=== PATIENT | female | born 1990 | race Caucasian/White ===

== ENCOUNTER → 2016-10-09 | Outpatient (CLI) | payer MEDICAID ==
[~2016-10-09] MED LIST: AC325T PO; ALBU17AE23 IH; AMOX500C2 PO; CEPH500C PO; DOCU-143 PO; DOXY100C2 PO; FERR325C PO; FOLI-88 PO; HYDR-3583 PO; HYDR-3720 PO; HYDR-3812 PO; HYDR-757 PO; HYDR12.56 PO; IBP600T1 PO; IBUP-1773 PO; LISI10TA2 PO; NFPRILOC40 PO; OXYC-12 PO; PED18TAB2 PO; PEDI1TAB35 PO; PRD20T PO; PREN1TAB19 PO; SULF-222 PO; TRAM50TA2 PO; morphine INJ 4 MG/ML 1 ML (VIAL/SYRINGE) ONE
--- OUTSIDE RECORDS SUMMARY | 2016-10-09 10:08 | XMS REPORT | Continuity of Care Document ---
Author Author [facility] Organization [facility] Address Unknown Phone Unavailable Care Team Providers Care Brine Purifier Name Role Phone SUZIE ARIZMENDI MD PCP Insurance Providers Payer Name Policy Number Subscriber Name Relationship Albert Kancare Amerigrp [id number] Fartun Peralta 18 Self / Same As Patient Advance Directives Directive Response Recorded Date/Time Advance Directives No 02/24/15 8:45pm Health Care Power of Dental Service Chief No 02/24/15 8:45pm Organ Donor Yes 02/24/15 8:45pm Resuscitation Status Full Code 02/24/15 8:45pm Problems Medical Problems Problem Onset Date Status Urinary tract infectious disease Unknown Active Medications Medication Dose Route Sig Days/Qty Instructions Order Date Discontinued Date Status Doxycycline Hyclate (Vibramycin) 1 Each PO TWICE A DAY 10 Days 08/02/11 Discontinued Albuterol 1 Gm IH EVERY 4HRS PRN 1 Qty 03/01/11 08/02/11 Discontinued Doxycycline Hyclate (Vibramycin) 1 Each PO TWICE A DAY 14 Qty 08/02/11 08/26/12 Discontinued Doxycycline Hyclate (Vibramycin) 1 Each PO TWICE A DAY 7 Days 10/31/11 08/26/12 Discontinued Hydrochlorothiazide 1 Tab PO DAILY 01/16/12 08/26/12 Discontinued Tramadol Hcl 1 Tab PO NEEDED 01/16/12 08/26/12 Discontinued Amoxicillin 1 Each PO THREE TIMES A DAY 7 Days 01/16/12 08/26/12 Discontinued Ped Multivit #43/Iron Fumarate 18 Mg PO DAILY 08/26/12 08/26/13 Discontinued Ferrous Sulfate 325 ( PO DAILY 08/26/12 08/26/13 Discontinued Acetaminophen/Hydrocodone Bitart 1 Ea PO Q6HR PRN 15 Qty 08/26/1208/11 Discontinued Acetaminophen 650 Mg PO NEEDED 10/11/12 08/26/13 Discontinued Ibuprofen 600 Mg PO GIVE EVERY 6 HR ON SCHEDULE PRN 10/27/12 Discontinued Oxycodone Hcl/Acetaminophen 1 - 2 Each PO Q4-6HR PRN 10/27/12 Discontinued Prednisone 20 Mg PO DAILY 20MG-- 2 P.O. DAILY FOR 3 DAYS, THEN 1 DAILY FOR 3 DAYS, THEN OFF. 10/27/12 08/26/13 Discontinued Prednisone 20 Mg PO TWICE A DAY 5 Days 01/18/13 08/26/13 Discontinued Omeprazole 40 Mg PO DAILY 30 Qty 08/26/13 02/14/15 Discontinued Folic Acid/Multivits-Min/Lut 1 Each PO DAILY 30 Qty 08/26/13 02/14/15 Discontinued Acetaminophen/Hydrocodone Bitart 1-2 Ea PO Q4-6HR PRN PAIN 20 Qty 10/0802/14/15 Discontinued Ibuprofen (Motrin) 600 Mg PO EVERY 6 HOURS PRN CRAMPS 30 Qty 10/08/13 02/14/15 Discontinued Cephalexin Monohydrate (Keflex) 1 Each PO FOUR TIMES DAILY 30 Qty 10/1202/14/15 Discontinued Vit/Fe Fumarate/Fa 1 Each PO DAILY 02/14/15 02/24/15 Discontinued Pediatric Multivit Comb. No.49 2 Each PO DAILY 02/24/15 Active Social History Social History Problem Response Recorded Date/Time Alcohol Use Denies Use 10/12/2013 11:55am Recreational Drug Use No 10/12/2013 11:55am Recent Foreign Travel No 10/12/2013 11:55am Recent Infectious Disease Exposure No 10/12/2013 11:55am Hospitalization with Isolation Denies 10/12/2013 11:55am Smoking Status Current Someday Smoker 02/24/2015 8:46pm Do you dip or chew tobacco? No 02/24/2015 8:46pm Query Response Start Date Stop Date Smoking Status Current Someday Smoker Hospital Discharge Instructions No hospital discharge instructions. Plan of Care No plan of care. Functional Status No functional status results. Allergies, Adverse Reactions, Alerts Allergen Type Severity Reaction Status Last Updated No Known Drug Allergies Active 03/01/11 Immunizations Name Given Type Hepatitis A No Historical Hepatitis B No Historical Tetanus Booster (TDap) Less than 5yrs Historical Vital Signs Acute Vital Signs Vital Response Date/Time Temperature (Fahrenheit) 97.3 degrees F (97.6 - 99.5) Temperature (Calculated Celsius) 36.39494 degrees C (36.4 - 37.5) Temperature Source Tympanic Pulse Rate (adult) 96 bpm (60 - 90) Respiratory Rate 18 bpm (12 - 24) Blood Pressure 132/70 mm Hg Pain Pain Intensity 5 Height (Feet) 5 feet Height (Inches) 9.00 inches Height (Calculated Centimeters) 175.270187 cm Weight (Pounds) 203 pounds Weight (Calculated Grams) 42170.252 gm Weight (Calculated Kilograms) 92.216789 kilograms Calculated BMI 29.97 Results Laboratory Results Test Name Result Units Flags Reference Collection Date/Time Result Date/ Time Comments White Blood Count 14.9 10^3/uL H 4.3-11.0 02/14/2015 7:30am 02/14/2015 7: 46am Red Blood Count 4.16 10^6/uL L 4.35-5.85 02/14/2015 7:3002/14/2015 7: 46am Hemoglobin 11.1 G/DL L 11.5-16.0 02/14/2015 7:3002/14/2015 7:46am Hematocrit 34 % L 35-52 02/14/2015 7:30am 02/14/2015 7:46am Mean Corpuscular Volume 83 FL 80-99 02/14/2015 7:3002/14/2015 7: 46am Mean Corpuscular Hemoglobin 27 PG 25-34 02/14/2015 7:3002/14/2015 7: 46am Mean Corpuscular Hemoglobin Concent 32 G/DL 32-36 02/14/2015 7:30 7:46am Red Cell Distribution Width 13.6 % 10.0-14.5 02/14/2015 7:30am 2014 7:46am Platelet Count 262 10^3/uL 130-400 02/14/2015 7:30am 02/14/2015 7:46am Mean Platelet Volume 10.6 FL H 7.4-10.4 02/14/2015 7:30am 02/14/2015 7: 46am Urine Color YELLOW 02/14/2015 6:30am 02/14/2015 7:00am Urine Clarity SLIGHTLY CLOUDY 02/14/2015 6:30am 02/14/2015 7:00am Urine pH 7 5-9 02/14/2015 6:30am 02/14/2015 7:00am Urine Specific [place] 1.015 * 1.016-1.022 02/14/2015 6:30am 2014 7:00am Urine Protein NEGATIVE NEGATIVE 02/14/2015 6:30am 02/14/2015 7:00am Urine Glucose (UA) NEGATIVE NEGATIVE 02/14/2015 6:30am 02/14/2015 7: 00am Urine RBC (Auto) NEGATIVE NEGATIVE 02/14/2015 6:30am 02/14/2015 7: 00am Urine Ketones NEGATIVE NEGATIVE 02/14/2015 6:30am 02/14/2015 7:00am Urine Nitrite NEGATIVE NEGATIVE 02/14/2015 6:30am 02/14/2015 7:00am Urine Bilirubin NEGATIVE NEGATIVE 02/14/2015 6:30am 02/14/2015 7: 00am Urine Urobilinogen NORMAL MG/DL NORMAL 02/14/2015 6:30am 02/14/2015 7: 00am Urine Leukocyte Esterase 1+ * NEGATIVE 02/14/2015 6:30am 02/14/2015 7: 00am Urine RBC NONE /HPF 02/14/2015 6:30am 02/14/2015 7:00am Urine WBC 5-10 /HPF * 02/14/2015 6:30am 02/14/2015 7:00am Urine Bacteria FEW /HPF * 02/14/2015 6:30am 02/14/2015 7:00am Urine Squamous Epithelial Cells 10-25 /HPF * 02/14/2015 6:30am 2014 7:00am Urine Crystals PRESENT /LPF * 02/14/2015 6:30am 02/14/2015 7:00am Urine Amorphous Sediment MOD LINUS URATES /LPF * 02/14/2015 6:30am 02/14 7:00am Urine Casts NONE /LPF 02/14/2015 6:30am 02/14/2015 7:00am Urine Mucus SMALL /LPF * 02/14/2015 6:30am 02/14/2015 7:00am Urine Culture Indicated YES 02/14/2015 6:30am 02/14/2015 7:00am Urine Color YELLOW 02/24/2015 8:30pm 02/24/2015 9:01pm Urine Clarity CLEAR 02/24/2015 8:30pm 02/24/2015 9:01pm Urine pH 7 5-9 02/24/2015 8:30pm 02/24/2015 9:01pm Urine Specific [place] 1.010 * 1.016-1.022 02/24/2015 8:30pm 2014 9:01pm Urine Protein NEGATIVE NEGATIVE 02/24/2015 8:30pm 02/24/2015 9:01pm Urine Glucose (UA) NEGATIVE NEGATIVE 02/24/2015 8:30pm 02/24/2015 9: 01pm Urine RBC (Auto) NEGATIVE NEGATIVE 02/24/2015 8:30pm 02/24/2015 9: 01pm Urine Ketones NEGATIVE NEGATIVE 02/24/2015 8:30pm 02/24/2015 9:01pm Urine Nitrite NEGATIVE NEGATIVE 02/24/2015 8:30pm 02/24/2015 9:01pm Urine Bilirubin NEGATIVE NEGATIVE 02/24/2015 8:30pm 02/24/2015 9: 01pm Urine Urobilinogen NORMAL MG/DL NORMAL 02/24/2015 8:30pm 02/24/2015 9: 01pm Urine Leukocyte Esterase 1+ * NEGATIVE 02/24/2015 8:30pm 02/24/2015 9: 01pm Urine RBC NONE /HPF 02/24/2015 8:30pm 02/24/2015 9:01pm Urine WBC 10-25 /HPF * 02/24/2015 8:30pm 02/24/2015 9:01pm Urine Bacteria FEW /HPF * 02/24/2015 8:30pm 02/24/2015 9:01pm Urine Squamous Epithelial Cells 25-50 /HPF * 02/24/2015 8:30pm 2014 9:01pm Urine Crystals NONE /LPF 02/24/2015 8:30pm 02/24/2015 9:01pm Urine Casts NONE /LPF 02/24/2015 8:30pm 02/24/2015 9:01pm Urine Mucus NEGATIVE /LPF 02/24/2015 8:30pm 02/24/2015 9:01pm Urine Culture Indicated YES 02/24/2015 8:30pm 02/24/2015 9:01pm Procedures No known history of procedures. Encounters Encounter Location Date/Time Departed Clinic Via [facility] 02/24/15 8:27pm Departed Clinic Via [facility] 02/14/15 6:31am
--- NOTE | 2016-10-09 17:00 | Diagnostic Imaging Report ---
Transabdominal and transvaginal pelvic ultrasound. INDICATION: Left pelvic pain. FINDINGS: The uterus is 8.3 x 4.4 x 5.1 cm. The endometrial stripe is 2 cm in thickness. No myometrial lesion is identified. The right ovary is 3.9 x 3.1 x 2 cm. There is a 2 cm hypoechoic lesion within the right ovary probably a hemorrhagic follicle. Arterial waveforms over the right ovary seen. The left ovary is obscured by bowel gas. IMPRESSION: 1. The left ovary is obscured. Correlate clinically and with MRI of the pelvis if needed. 2. Slight thickening of the endometrial stripe with no focal lesion identified. This may be physiologic. Follow-up study in 2-3 months is recommended to ensure no adverse development. Dictated by: Dictated on workstation # [id number]
== END ==
LOC: RAD 10:04
PROVIDERS: ATTEND Family Medicine
DX: R10.2 Pelvic and perineal pain (principal)
CPT/HCPCS: 76830; 76856

== ENCOUNTER 2016-11-16 10:15 | Outpatient (CLI) | payer MEDICAID ==
[~2016-11-16] VITALS: Ht 175.3 cm; Wt 82.3 kg
[~2016-11-16 10:15] MED LIST changes: -DOCU-143 PO; -HYDR-757 PO; -LISI10TA2 PO; -morphine INJ 4 MG/ML 1 ML (VIAL/SYRINGE) ONE
--- OUTSIDE RECORDS SUMMARY | 2016-11-16 10:19 | XMS REPORT | Continuity of Care Document ---
Author Author [facility] Organization [facility] Address Unknown Phone Unavailable Care Team Providers Care Manager Patient Name Role Phone SUZIE ARIZMENDI MD PCP Insurance Providers Payer Name Policy Number Subscriber Name Relationship Albert Kanc[employer] Amerigrp [id number] Fartun Peralta 18 Self / Same As Patient Advance Directives Directive Response Recorded Date/Time Advance Directives No 02/24/15 8:45pm Health Care Power of Explosive Expert No 02/24/15 8:45pm Organ Donor Yes 02/24/15 [...] F (97.6 - 99.5) Temperature (Calculated Celsius) 36.58281 degrees C (36.4 - 37.5) Temperature Source Tympanic Pulse Rate (adult) 96 bpm (60 - 90) Respiratory Rate 18 bpm (12 - 24) Blood Pressure 132/70 mm Hg Pain Pain Intensity 5 Height (Feet) 5 feet Height (Inches) 9.00 inches Height (Calculated Centimeters) 175.124090 cm Weight (Pounds) 203 pounds Weight (Calculated Grams) 61029.252 gm Weight (Calculated Kilograms) 92.447827 kilograms Calculated BMI 29.97 Results Laboratory Results [...] 5-9 02/14/2015 6:30am 02/14/2015 7:00am Urine Specific [place] 1.015 * 1.016-1.022 02/14/2015 6:30am 2014 7:00am [...] 5-9 02/24/2015 8:30pm 02/24/2015 9:01pm Urine Specific [place] 1.010 * 1.016-1.022 02/24/2015 8:30pm 2014 9:01pm [...] Encounters Encounter Location Date/Time Departed Clinic Via [facility] 02/24/15 8:27pm Departed Clinic Via [facility] 02/14/15 6:31am
[2016-11-16] MEDS ORDERED: LISI10TA2 PO (10:26)
[2016-11-16 10:30] VITALS: BP 132/94
[2016-11-16 10:59] LABS: BASOPHILS % (AUTO) 0 % (0-10); EOSINOPHILS # (AUTO) 0.1 10^3/uL (0.0-0.3); EOSINOPHILS % (AUTO) 2 % (0-10); LYMPHOCYTES # (AUTO) 2.1 X 10^3 (1.0-4.0); LYMPHOCYTES % (AUTO) 30 % (12-44); MEAN CORPUSCULAR HEMOGLOBIN 26 PG (25-34); MEAN CORPUSCULAR HGB CONC 33 G/DL (32-36); MEAN CORPUSCULAR VOLUME 80 FL (80-99); MEAN PLATELET VOLUME 10.8 FL (7.4-10.4); MONOCYTES # (AUTO) 0.4 X 10^3 (0.0-1.0); MONOCYTES % (AUTO) 6 % (0-12); NEUTROPHILS # (AUTO) 4.3 X 10^3 (1.8-7.8); NEUTROPHILS % (AUTO) 62 % (42-75); PLATELET COUNT 350 10^3/uL (130-400); RED BLOOD COUNT 5.25 10^6/uL (4.35-5.85); RED CELL DISTRIBUTION WIDTH 14.5 % (10.0-14.5); WHITE BLOOD COUNT 6.9 10^3/uL (4.3-11.0)
[2016-11-19] MEDS ORDERED: HYDR-757 PO (09:22)
[2016-11-19] MEDS ORDERED: IBUP-1773 PO (09:22)
== END 2016-11-16 13:05 ==
LOC: PREOP 10:15
PROVIDERS: ATTEND Obstetrics & Gynecology
DX: Z01.812 Encounter for preprocedural laboratory examination (principal); Z11.2 Encounter for screening for other bacterial diseases; R10.2 Pelvic and perineal pain
CPT/HCPCS: 36415; 85025; 86850; 86900; 86901; 87081

== ENCOUNTER 2016-11-19 08:07 | Day surgery (SDC) | payer MEDICAID ==
[~2016-11-19] VITALS: Ht 175.3 cm; Wt 82.3 kg
[~2016-11-19 08:07] MED LIST changes: +LISI10TA2 PO
[2016-11-19 08:25] VITALS: BP 118/88
[2016-11-19] MEDS: LACTATED RINGERS 1,000 ML IV PRN ×2 (08:30→10:30)
--- NOTE | 2016-11-19 09:15 | Progress Note-Pre Operative ---
Pre-Operative Progress Note H&P Reviewed The H&P was reviewed, patient examined and no changes noted. Date H&P Reviewed: Nov 19, 2016 Time H&P Reviewed: 09:00 Pre-Operative Diagnosis: LLQ pain SAMANTHA MOORE DO Nov 19, 2016 9:15 am
[2016-11-19] MEDS ORDERED: DEXAMETHASONE PF 10 MG/ML (DECADRON) VIAL ONE (09:18)
[2016-11-19] MEDS ORDERED: proPOfol 200 MG/20 ML (DIPRIVAN) VIAL IV ONE (09:18)
[2016-11-19] MEDS ORDERED: fentaNYL INJECTION 100 MCG/2 ML AMP ONE ×2 (09:18→10:34)
[2016-11-19] MEDS ORDERED: ONDANSETRON 4 MG/2 ML (SDV) Z0FRAN ONE (09:18)
[2016-11-19] MEDS ORDERED: ROCURONIUM 50 MG/5 ML (ZEMURON) VIAL IV ONE (09:18)
[2016-11-19] MEDS ORDERED: BUPIVACAINE 0.25% 30 ML (SENSORCAINE) VIAL ONE (09:19)
[2016-11-19] MEDS ORDERED: MIDAZOLAM 2 MG/2 ML (VERSED) VIAL ONE (09:19)
[2016-11-19] MEDS ORDERED: HYDR-757 PO (09:22)
[2016-11-19] MEDS ORDERED: IBUP-1773 PO (09:22)
--- NOTE | 2016-11-19 09:23 | Discharge Inst-Women's Service ---
Discharge Inst-Women's Serv Depart Medication/Instructions New, Converted or Re-Newed RX: RX on Chart Activity Activity: Activity as Tolerated (do not drive while taking narcotic pain meds) Driving Instructions: You May Drive NO SMOKING: NO SMOKING Nothing Inside Vagina: No Douching, No [place], No Tampons Diet Discharge Diet: No Restrictions Symptoms to Report to : Bleeding Excessive, Pain Increased, Fever Over 101 Degrees F, Vaginal Bleeding Increase, Questions/Concerns For Any Problems or Questions: Contact Your Physician Skin/Wound Care Infection Signs and Symptoms: Increased Redness, Foul Odor of Wound, Increased Drainage, Skin Itchy or Has a Rash, Increased Swelling, Temperature Above 101 F Operative Area Clean and Dry: Keep Incision Clean/Dry Stitches/[place]/Dermabond: Dermabond, Care of Stitches Bathing Instructions: SAMANTHA Zuleta DO Nov 19, 2016 9:23 am
[2016-11-19] MEDS ORDERED: KETOROLAC 30 MG/ML VIAL ONE (09:53)
[2016-11-19] MEDS ORDERED: SEVOFLURANE (ULTANE) 15 ML INHAL SOLN ONE ×4 (09:53→10:29)
[2016-11-19] MEDS ORDERED: LACTATED RINGERS 2,000 ML IV ONE (09:53)
[2016-11-19] MEDS ORDERED: morphine INJ 10 MG/ML 1ML (SYR OR VIAL) ONE (11:06)
[2016-11-19 11:40] VITALS: BP 115/74
[2016-11-19 12:10] VITALS: BP 126/80
[2016-11-19 12:30] VITALS: BP 124/78
--- NOTE | 2016-11-19 13:43 | OPERATIVE REPORT ---
PROCEDURE PHYSICIAN: SAMANTHA KUHN DATE OF PROCEDURE: 11/19/2016 PREOPERATIVE DIAGNOSIS: 1. 26-year-old female with chronic pelvic pain. 2. Left lower quadrant abdominal pain. POSTOPERATIVE DIAGNOSES: 1. 26-year-old female with chronic pelvic pain. 2. Left lower quadrant abdominal pain. 3. Left ovarian cyst. 4. 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 of the posterior cul-de-sac along the margin of the left uterosacral ligament. PROCEDURE: Laparoscopic bilateral salpingectomy, left ovarian cystotomy and ablation of endometriosis. SURGEON: Dr. Samantha Kuhn TITLE SEARCHER: Jenelle Hopkins APRN, who is necessary for retraction of vital organs and structures ANESTHESIA: General endotracheal. ESTIMATED BLOOD LOSS: Minimal. URINE OUTPUT: 50 mL clear at the end of the procedure. FLUIDS: 1100 mL of lactated Ringer's solution. FINDINGS: Findings is a slightly hyperemic and enlarged uterus with grossly normal bilateral fallopian tubes with evidence of previous tubal ligation and Filshie clips in place. A 3 to 4 cm left ovarian simple appearing cyst. Filled with clear yellow-tinged fluid and endometriosis in a dark powder burn fashion on the left uterosacral ligament proceeding to the posterior cul-de-sac. SPECIMEN SENT: Bilateral fallopian tubes. INDICATIONS FOR THE PROCEDURE: This 26-year-old female was a consultation to me from Dr. Schroeder for ongoing issues with pelvic pain that had been worsening in the left lower quadrant the last 2 to 3 months to the point where they have tried more conservative measures of trying to deal with the pain without any improvement in her pain. She underwent ultrasound, which did not reveal any abnormality however; the ultrasound was unable to visualize the left ovary. I discussed with the patient more conservative options and the possibility of this being endometriosis and suppression needed to be done with medication NSAIDs. After everything was discussed with the patient, she described either trying them in the past or not willing to move forward with that treatment options as she wishes to find out what is causing her pain. I discussed with the patient diagnostic laparoscopy. Risks of the procedure was discussed with the patient in detail including risk of bleeding, infection, damaging any of the surrounding structures, including but not limited to the bowel, bladder, ureter, kidneys, postoperative hematoma formation, postoperative stroke or DVT, risk from anesthesia, and even . After all of her questions were answered pertaining to procedure as well as recovery time and expectations preoperatively consent was obtained in the preoperative area after the procedure was reviewed with her sister present and the patient was then taken the operating room. OPERATIVE REPORT IN DETAIL: Once in the operating room, general anesthesia was found to be adequate. She was placed in the dorsal lithotomy position, prepped and draped in normal sterile fashion by nursing. A timeout is performed. I first place a Patel catheter using sterile technique and then proceed with performing a bimanual examination. The uterus is not enlarged, freely mobile. There is no adnexal fullness or masses appreciated on bimanual examination. However, this is somewhat limited by the patient's body habitus. I placed a weighted speculum into the patient's vagina. A right angle retractor is used to visualize the cervix. It is grasped at 12 o'clock position using long Allis clamp. I then gently sound the uterine cavity depth which was found to be 8 cm. I then placed a Hydrophi uterine manipulator to a depth of 8 cm and deploy the balloon and use this as my manipulation on the uterus. I then performed a change of gloves after removing the weighted speculum and the Allis clamp and take my attention to the abdomen where infraumbilically I infiltrate this area using 0.25% Marcaine and make a 5 mm incision and direct a Veress needle through this incision until intraperitoneal placement is confirmed using a saline drop test. I proceed with insufflation using CO2 gas. Opening pressure of 4 mmHg is noted. I proceed to maximum pressure of 15 mmHg at which point I remove the Veress needle, introduce a 5 mm blunt trocar through this incision. Intraperitoneal placement is confirmed using a laparoscope. I then have the patient placed in steep Trendelenburg and I am able to visualize all the pelvic anatomy as described in my findings above. I decide I will need to do some dissection and need a second trocar site so I place a suprapubic 5 mm infiltrating the skin using 0.25% Marcaine making a 5 mm incision and directing the 5 mm trocar through this incision until it is visualized in the peritoneal cavity at which point I proceed with removing the fallopian tubes first, my reasoning being that Filshie clip placement can result in post-tubal pain syndrome and the patient was having ongoing issues with pain without any evident source. I start at the isthmic portion of the fallopian tube just proximal to the Filshie clips using a LigaSure 5 mm bipolar cautery I bipolar cauterize the tube and transect it using the LigaSure. I take this dissection down the mesosalpinx the tube away from its vascular supply. I do this in a similar fashion on the right side. Once both of these tubes are collected they are placed in the posterior cul-de-sac for further removal later in the procedure. I then use a monopolar Endo Shear to open up the left ovarian cyst and cauterize the margins of the cyst opening but this is to decompress the cyst and hopefully improve patient's perception of pain in the left lower quadrant. Finally upon carefully inspecting the peritoneum and serosa of the uterus and the pelvic structures, I identify powder burn turpin evidence of endometriosis in the posterior cul-de-sac along the left uterosacral ligament. Due to this being possibly causing her pain I ablate this using monopolar cautery at which point I then copiously irrigate the pelvis using normal saline. There is no active bleeding noted from any my dissection planes. I then remove the fallopian tubes through my 5 mm incision using a 5 mm Endopouch. Once they are removed I release insufflation through my trocar sites and introduce a 10 mL of 0.25% Marcaine down into the peritoneal cavity and then remove the trocars. Once the trocars are removed I close the skin using Dermabond. Band-Aids are placed over this. The patient tolerated the procedure well and was taken to the recovery area in stable condition after the Akros Siliconer uterine manipulator and Patel catheter is removed. Job ID: [id number] Dictated Date: 11/19/2016 11:08:56 Psychology Teacher Date: 11/19/2016 13:22:49 / [email or web address]
--- OUTSIDE RECORDS SUMMARY | 2016-11-22 08:30 | XMS REPORT | Continuity of Care Document ---
Author Author [facility] Address Unknown Phone Unavailable Allergies Active Description Code Type Severity Reaction Onset Reported/Identified Relationship to Patient Clinical Status Yes No Known Drug Allergies [id number] Drug Allergy Unknown N/ A 11/16/2016 Medications Problems Date Dx Coded Attending Type Code Diagnosis Diagnosed By 12/24/2009 RADHA LYNN APRN 278.02 OVERWEIGHT 12/24/2009 RADHA LYNN APRN 401.1 HYPERTENSION, BENIGN ESSENTIAL 12/24/2009 ADÁN MURRY DO K 278.02 OVERWEIGHT 12/24/2009 ADÁN MURRY DO 401.1 HYPERTENSION, BENIGN ESSENTIAL 12/24/2009 ERICA DIANE APRN 278.02 OVERWEIGHT 12/24/2009 ERICA DIANE APRN 401.1 HYPERTENSION, BENIGN ESSENTIAL 01/30/2010 RADHA LYNN APRN 784.0 HEADACHE 01/30/2010 ADÁN MURRY DO K 784.0 HEADACHE 01/30/2010 ERICA DIANE APRN 784.0 HEADACHE 03/03/2010 RADHA LYNN APRN 251.1 HYPERINSULINISM 03/03/2010 RADHA LYNN APRN 626.4 IRREGULAR MENSTRUAL CYCLE 03/03/2010 ADÁN MURRY DO K 251.1 HYPERINSULINISM 03/03/2010 ADÁN MURRY DO K 626.4 IRREGULAR MENSTRUAL CYCLE 03/03/2010 ERICA DIANE APRN E 251.1 HYPERINSULINISM 03/03/2010 ERICA DIANE APRN E 626.4 IRREGULAR MENSTRUAL CYCLE 07/14/2010 RADHA LYNN APRN 079.99 UNSPECIFIED VIRAL INFECTION 07/14/2010 RADHA LYNN APRN 460 ACUTE NASOPHARYNGITIS (COMMON COLD) 07/14/2010 ADÁN MURRY DO 079.99 UNSPECIFIED VIRAL INFECTION 07/14/2010 ADÁN MURRY DO 460 ACUTE NASOPHARYNGITIS (COMMON COLD) 07/14/2010 ERICA DIANE APRN 079.99 UNSPECIFIED VIRAL INFECTION 07/14/2010 ERICA DIANE APRN 460 ACUTE NASOPHARYNGITIS (COMMON COLD) 12/11/2010 RADHA LYNN APRN 462 ACUTE PHARYNGITIS 12/11/2010 RADHA LYNN APRN 463 TONSILLITIS ACUTE 12/11/2010 ADÁN MURRY DO K 462 ACUTE PHARYNGITIS 12/11/2010 ADÁN MURRY DO K 463 TONSILLITIS ACUTE 12/11/2010 ERICA DIANE APRN 462 ACUTE PHARYNGITIS 12/11/2010 ERICA DIANE APRN 463 TONSILLITIS ACUTE 03/01/2011 Ot 466.0 ACUTE BRONCHITIS 03/01/2011 Ot 786.2 COUGH 05/15/2011 RADHA LYNN APRN 465.9 ACUTE UPPER RESPIRATORY INFECTIONS OF UNSPECIFIED SITE 05/15/2011 ADÁN MURRY DO 465.9 ACUTE UPPER RESPIRATORY INFECTIONS OF UNSPECIFIED SITE 05/15/2011 ERICA DIANE APRN 465.9 ACUTE UPPER RESPIRATORY INFECTIONS OF UNSPECIFIED SITE 08/02/2011 Ot 305.1 TOBACCO USE DISORDER 08/02/2011 Ot 466.0 ACUTE BRONCHITIS 08/02/2011 Ot 786.2 COUGH 10/31/2011 Ot 466.0 ACUTE BRONCHITIS 10/31/2011 Ot 780.60 FEVER, UNSPECIFIED 12/21/2011 RADHA LYNN APRN 333.94 RESTLESS LEGS SYNDROME (RLS) 12/21/2011 ADÁN MURRY DO 333.94 RESTLESS LEGS SYNDROME (RLS) 12/21/2011 ERICA DIANE APRN 333.94 RESTLESS LEGS SYNDROME (RLS) 01/15/2012 RADHA LYNN APRN 008.8 GASTROENTERITIS, VIRAL 01/15/2012 ADÁN MURRY DO 008.8 GASTROENTERITIS, VIRAL 01/15/2012 ERICA DIANE APRN 008.8 GASTROENTERITIS, VIRAL 01/16/2012 Ot 462 ACUTE PHARYNGITIS 01/16/2012 Ot 787.03 VOMITING ALONE 01/22/2012 RADHA LYNN APRN 787.01 NAUSEA WITH VOMITING 01/22/2012 ADÁN MURRY DO 787.01 NAUSEA WITH VOMITING 01/22/2012 ERICA DIANE APRN 787.01 NAUSEA WITH VOMITING 01/29/2012 RADHA LYNN APRN 789.01 ABDOMINAL PAIN RIGHT UPPER QUADRANT 01/29/2012 ADÁN MURRY DO 789.01 ABDOMINAL PAIN RIGHT UPPER QUADRANT 01/29/2012 ERICA DIANE APRN 789.01 ABDOMINAL PAIN RIGHT UPPER QUADRANT 02/25/2012 RADHA LYNN APRN V72.42 TEST POSITIVE RESULT 02/25/2012 ADÁN MURRY DO V72.42 TEST POSITIVE RESULT 02/25/2012 ERICA DIANE APRN V72.42 TEST POSITIVE RESULT 08/26/2012 Ot 648.73 BONE DISORDER-ANTEPARTUM 08/26/2012 Ot 724.2 LUMBAGO 10/11/2012 Ot 644.03 THRT ADITHYA LABOR-ANTEPART 10/27/2012 Ot 493.90 ASTHMA, UNSPECIFIED 10/27/2012 Ot 648.92 OTH CURR COND-DEL W P/P 10/27/2012 Ot 649.01 TOBACCO USE DISORDER COMP PREG/CHILDBIRT 10/27/2012 Ot 663.31 CORD ENTANGLE NEC-DELIV 10/27/2012 Ot V06.1 [id number], COMBINED [ 10/27/2012 Ot V06.4 [id number] 10/27/2012 Ot V27.0 DELIVER-SINGLE LIVEBORN 01/18/2013 TERRANCE CURRY, ESE Greene Ot 466.0 ACUTE BRONCHITIS 01/18/2013 TERRANCE CURRY, ESE Greene Ot 786.2 COUGH 03/06/2013 RADHA LYNN APRN 685.1 PILONIDAL CYST WITHOUT ABSCESS 03/06/2013 ADÁN MURRY DO 685.1 PILONIDAL CYST WITHOUT ABSCESS 03/06/2013 ERICA DIANE APRN 685.1 PILONIDAL CYST WITHOUT ABSCESS 08/26/2013 KYLEIGH CURRY, SUZIE Messina Ot 646.83 PREG COMPL NEC-ANTEPART 08/26/2013 KYLEIGH CURRY, SUZIE Messina Ot 789.00 ABDOMINAL PAIN, UNSPECIFIED SITE 09/16/2013 SUZIE ARIZMENDI MD Ot 644.03 THRT ADITHYA LABOR-ANTEPART 10/08/2013 KYLEIGH CURRY, SUZIE Messina Ot 650 NORMAL DELIVERY 10/08/2013 SUZIE ARIZMENDI MD Ot V03.82 PROPHYLACTIC VACC AGAINST STREPTOCOCCUS 10/08/2013 SUZIE ARIZMENDI MD Ot V27.0 DELIVER-SINGLE LIVEBORN 10/12/2013 JERROD RUBI MD Ot 599.0 URIN TRACT INFECTION NOS 10/12/2013 JERROD RUBI MD Ot 646.64 INFECTION- 10/12/2013 JERROD RUBI MD Ot 789.04 ABDOMINAL PAIN, LEFT LOWER QUADRANT 07/04/2014 ADÁN MURRY DO 719.46 PAIN IN JOINT INVOLVING LOWER LEG 07/04/2014 ADÁN MURRY DO E888.8 OTHER ACCIDENTAL FALL 07/04/2014 ERICA DIANE APRN 719.46 PAIN IN JOINT INVOLVING LOWER LEG 07/04/2014 ERICA DIANE APRN E888.8 OTHER ACCIDENTAL FALL 09/28/2014 Ot 787.01 09/28/2014 Ot 789.00 09/28/2014 Ot 649.63 09/28/2014 Ot 649.63 09/28/2014 SUZIE ARIZMENDI MD Ot 649.63 09/28/2014 SUZIE ARIZMENDI MD Ot 649.63 09/28/2014 SUZIE ARIZMENDI MD Ot V28.81 09/28/2014 Ot 787.01 09/28/2014 Ot 789.00 09/28/2014 Ot 649.63 09/28/2014 Ot 649.63 09/28/2014 SUZIE ARIZMENDI MD Ot 649.63 09/28/2014 SUZIE ARIZMENDI MD Ot 649.63 09/28/2014 SUZIE ARIZMENDI MD Ot V28.81 10/01/2014 SUZIE ARIZMENDI MD Ot V22.1 10/10/2014 SUZIE ARIZMENDI MD Ot V22.1 02/14/2015 SUZIE ARIZMENDI MD Ot 558.9 NONINF GASTROENTERIT NEC 02/14/2015 SUZIE ARIZMENDI MD Ot 646.83 PREG COMPL NEC-ANTEPART 02/19/2015 SUZIE ARIZMENDI MD Ot V28.89 02/24/2015 SUZIE ARIZMENDI MD Ot 648.93 OTH CURR COND-ANTEPARTUM 02/24/2015 KYLEIGH CURRY, SUZIE Messina Ot 789.00 ABDOMINAL PAIN, UNSPECIFIED SITE 04/17/2015 KYLEIGH CURRY, SUZIE Messina Ot 599.0 URIN TRACT INFECTION NOS 04/17/2015 SUZIE ARIZMENDI MD Ot 646.63 INFECTION-ANTEPARTUM 2015 SUZIE ARIZMENDI MD Ot 642.33 TRANS HYPERTEN-ANTEPART 05/01/2015 Ot 787.01 05/01/2015 Ot 789.00 05/01/2015 Ot 649.63 05/01/2015 Ot 649.63 05/01/2015 SUZIE ARIZMENDI MD Ot 649.63 05/01/2015 SUZIE ARIZMENDI MD Ot 649.63 05/01/2015 SUZIE ARIZMENDI MD, Ot V28.81 05/01/2015 SUZIE ARIZMENDI MD, Ot V22.1 05/01/2015 SUZIE ARIZMENDI MD, Ot V28.89 05/02/2015 SUZIE ARIZMENDI MD Ot 642.31 TRANS HYPERTEN-DELIVERED 05/02/2015 SUZIE ARIZMENDI MD Ot V06.1 [id number], COMBINED [ 05/02/2015 SUZIE ARIZMENDI MD Ot V27.0 DELIVER-SINGLE LIVEBORN 06/12/2016 Ot 787.01 NAUSEA WITH VOMITING 06/12/2016 Ot 789.00 ABDOMINAL PAIN, UNSPECIFIED SITE 06/12/2016 Ot 649.63 UTERINE SIZE DATE DISCREPANCY, ANTEPARTU 06/12/2016 Ot 649.63 UTERINE SIZE DATE DISCREPANCY, ANTEPARTU 06/12/2016 SUZIE ARIZMENDI MD, Ot 649.63 UTERINE SIZE DATE DISCREPANCY, ANTEPARTU 06/12/2016 SUZIE ARIZMENDI MD, Ot 649.63 UTERINE SIZE DATE DISCREPANCY, ANTEPARTU 06/12/2016 SUZIE ARIZMENDI MD, Ot V28.81 ENCOUNTER FOR ANATOMIC SURVEY 06/12/2016 SUZIE ARIZMENDI MD, Ot V22.1 SUPERVIS OT NORMAL PREG 06/12/2016 SUZIE ARIZMENDI MD, Ot V28.89 OTHER SPECIFIED SCREENING 06/13/2016 KAKELELAND CHANG MD Ot F17.210 NICOTINE DEPENDENCE, CIGARETTES, UNCOMPL 06/13/2016 LELAND TOWNSEND MD Ot L03.116 CELLULITIS OF LEFT LOWER LIMB 06/13/2016 LELAND TOWNSEND MD Ot R22.42 LOCALIZED SWELLING, MASS AND LUMP, LEFT 06/15/2016 LELAND TOWNSEND MD Ot F17.210 NICOTINE DEPENDENCE, CIGARETTES, UNCOMPL 06/15/2016 LELAND TOWNSEND MD Ot L03.116 CELLULITIS OF LEFT LOWER LIMB 06/15/2016 LELAND TOWNSEND MD, Ot R22.42 LOCALIZED SWELLING, MASS AND LUMP, LEFT 10/09/2016 Ot 787.01 NAUSEA WITH VOMITING 10/09/2016 Ot 789.00 ABDOMINAL PAIN, UNSPECIFIED SITE 10/09/2016 Ot 649.63 UTERINE SIZE DATE DISCREPANCY, ANTEPARTU 10/09/2016 Ot 649.63 UTERINE SIZE DATE DISCREPANCY, ANTEPARTU 10/09/2016 SUZIE ARIZMENDI MD Ot 649.63 UTERINE SIZE DATE DISCREPANCY, ANTEPARTU 10/09/2016 SUZIE ARIZMENDI MD Ot 649.63 UTERINE SIZE DATE DISCREPANCY, ANTEPARTU 10/09/2016 SUZIE ARIZMENDI MD Ot V28.81 ENCOUNTER FOR ANATOMIC SURVEY 10/09/2016 SUZIE ARIZMENDI MD Ot V22.1 [facility] OT NORMAL PREG 10/09/2016 SUZIE ARIZMENDI MD Ot V28.89 OTHER SPECIFIED SCREENING 10/13/2016 SUZIE ARIZMENDI MD Ot R10.2 PELVIC AND PERINEAL PAIN 10/21/2016 SUZIE ARIZMENDI MD, Ot R10.2 PELVIC AND PERINEAL PAIN 11/17/2016 SAMANTHA MOORE DO Ot R10.2 PELVIC AND PERINEAL PAIN 11/17/2016 SAMANTHA MOORE DO Ot Z01.812 ENCOUNTER FOR PREPROCEDURAL LABORATORY E 11/17/2016 SAMANTHA MOORE DO Ot Z11.2 ENCOUNTER FOR SCREENING FOR OTHER BACTER Procedures Code Description Performed By Performed On 96.49 OTHER INSTILLATION 10/24/2012 73.6 EPISIOTOMY 2012 96.49 OTHER INSTILLATION 10/05/2013 73.6 EPISIOTOMY 2013 61842 XRAY KNEE LEFT 3 VIEWS 07/04/2014 96.49 OTHER INSTILLATION 04/29/2015 73.6 EPISIOTOMY 2014 Results Test Result Range Methicillin resistant Staphylococcus aureus (MRSA) screening culture - 10:30 Methicillin resistant Staphylococcus aureus (MRSA) screening culture NEG NRG Complete blood count (CBC) with automated white blood cell (WBC) differential - 11/16/16 10:35 Blood leukocytes automated count (number/volume) 6.9 10*3/ uL 4.3-11.0 Blood erythrocytes automated count (number/volume) 5.25 10*6 /uL 4.35-5.85 Venous blood hemoglobin measurement (mass/volume) 13.7 g/dL 11.5-16.0 Blood hematocrit (volume fraction) 42 % 35-52 Automated erythrocyte mean corpuscular volume 80 [foz_us] 80-99 Automated erythrocyte mean corpuscular hemoglobin (mass per erythrocyte) 26 pg 25-34 Automated erythrocyte mean corpuscular hemoglobin concentration measurement ( mass/volume) 33 g/dL 32-36 Automated erythrocyte distribution width ratio 14.5 % 10.0-14.5 Automated blood platelet count (count/volume) 350 10*3/uL 130-400 Automated blood platelet mean volume measurement 10.8 [foz_ us] 7.4-10.4 Automated blood neutrophils/100 leukocytes 62 % 42-75 Automated blood lymphocytes/100 leukocytes 30 % 12-44 Blood monocytes/100 leukocytes 6 % 0-12 Automated blood eosinophils/100 leukocytes 2 % 0-10 Automated blood basophils/100 leukocytes 0 % 0-10 Blood neutrophils automated count (number/volume) 4.3 10*3 1.8-7.8 Blood lymphocytes automated count (number/volume) 2.1 10*3 1.0-4.0 Blood monocytes automated count (number/volume) 0.4 10*3 0.0-1.0 Automated eosinophil count 0.1 10*3/uL 0.0-0.3 Automated blood basophil count (count/volume) 0.0 10*3/uL 0.0-0.1 Blood type T Indirect antibody screen panel - 11/16/16 10:35 ABO+Rh group OP NRG Blood group antibody screen NEGATIVE NRG Urine beta human chorionic gonadotropin (hCG) measurement - 11/19/16 08:05 Urine beta human chorionic gonadotropin (hCG) measurement NEGATIVE NEGATIVE Blood type T Indirect antibody screen panel - 11/19/16 08:25 ABO+Rh group OP NRG Transfusion band number [id number] NRG Blood group antibody screen NEGATIVE NRG Encounters ACCT No. Visit Date/Time Discharge Status Pt. Type Provider Facility Loc./Unit Complaint [id number] 07/04/2014 14:21:00 07/04/2014 23: 59:59 CLS Outpatient ERICA DIANE APRN [id number] 07/04/2014 10:30:00 07/04/2014 23: 59:59 CLS Outpatient ADÁN MURRY DO [id number] 04/27/2014 08:56:00 04/27/2014 23: 59:59 CLS Outpatient RADHA LYNN APRN
== END 2016-11-19 12:30 | disposition home or self-care (01) ==
LOC: DELPENDDIS → SDC 08:07
PROVIDERS: ATTEND Obstetrics & Gynecology
DX: N80.3 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 of pelvic peritoneum (principal); N83.202 Unspecified ovarian cyst, left side; R10.2 Pelvic and perineal pain
CPT/HCPCS: 84703; 88302; 88305

== ENCOUNTER → 2016-12-01 | Outpatient (CLI) | payer MEDICAID ==
[~2016-12-01] MED LIST changes: +DOCU-143 PO; +HYDR-757 PO
--- NOTE | 2016-12-01 12:29 | Diagnostic Imaging Report ---
PROCEDURE: US Gallbladder. TECHNIQUE: Multiple real-time grayscale images were obtained over the right upper quadrant in various projections. INDICATION: There are no prior ultrasound examinations available for comparison. The previous CT abdomen/pelvis exam of 01/26/12 failed to show any sign of an acute abnormality of the gallbladder. There are a number of small gallstones within the gallbladder. The gallbladder wall is slightly thickened but there is no pericholecystic fluid collection identified. Even so, the possibility of acute cholecystitis should be considered. Furthermore, the common bile duct is dilated and there is a small 4-5 MM calculus within the distal portion of the duct. The proximal biliary tree is also somewhat dilated. The liver is prominent. There is no focal mass involving the liver. The pancreas and right kidney are within normal limits. IMPRESSION: 1. There is cholelithiasis and choledocholithiasis. The gallbladder wall is also slightly thickened although there is no sign of pericholecystic fluid to suggest acute cholecystitis. If further evaluation of choledocholithiasis is desired, then ERCP would be recommended. 2. There is also some dilatation of the intrapelvic biliary tree. 3. There is no acute abnormality noted otherwise. 4. These results were discussed with Dr. Maurice Kuhn. Dictated by: Dictated on workstation # [id number]
--- NOTE | 2016-12-01 12:43 | Diagnostic Imaging Report ---
CLINICAL INDICATION: Patient states right upper quadrant pain x3 days. EXAM: X-ray of the abdomen supine views and left side down decubitus view. COMPARISON: Right upper quadrant ultrasound dated 12/01/2016. FINDINGS: There are no focal calcifications overlying the expected regions/ pathways of both kidneys, ureters, and bladder regions. There is a nonobstructed bowel gas pattern. There is no evidence of abdominal free air. There is a small amount of stool in the right colon and transverse colon regions. There is no radiodense foreign object seen. The visualized bones and extra abdominal soft tissues are unremarkable. IMPRESSION: 1: There is no evidence of intra-abdominal free air or radiodense foreign object. 2: There is no radiographic evidence for acute abdominal/ pelvic process or urinary tract stones. 3: There is a small amount of stool seen within the right colon region. Dictated by: Dictated on workstation # [id number]
== END ==
LOC: RAD 11:49
PROVIDERS: ATTEND Obstetrics & Gynecology
DX: R10.811 Right upper quadrant abdominal tenderness (principal)
CPT/HCPCS: 74020; 76705

== ENCOUNTER → 2016-12-02 | Outpatient (CLI) | payer MEDICAID ==
[~2016-12-02] VITALS: Ht 175.3 cm; Wt 83.5 kg
== END ==
LOC: PREOP 14:56
PROVIDERS: ATTEND Surgery
DX: Z01.818 Encounter for other preprocedural examination (principal); K80.20 Calculus of gallbladder without cholecystitis without obstruction

== ENCOUNTER 2016-12-03 11:30 | Day surgery (SDC) | payer MEDICAID ==
[~2016-12-03] VITALS: Ht 175.3 cm; Wt 83.5 kg
[~2016-12-03 11:30] MED LIST changes: -DOCU-143 PO
[2016-12-03] MEDS: LACTATED RINGERS 1,000 ML IV PRN ×2 (11:35→13:08)
[2016-12-03 11:40] VITALS: BP 138/91
[2016-12-03] MEDS ORDERED: ceFAZolin 2 GM/50 ML NS 50 ML IV ONE (11:45)
[2016-12-03] MEDS ORDERED: ROCURONIUM 50 MG/5 ML (ZEMURON) VIAL IV ONE (12:17)
[2016-12-03] MEDS ORDERED: LIDOCAINE PF 2% 10 ML (XYLOCAINE) AMP ONE (12:17)
[2016-12-03] MEDS ORDERED: ONDANSETRON 4 MG/2 ML (SDV) Z0FRAN ONE (12:17)
[2016-12-03] MEDS ORDERED: LIDOCAINE JELLY 2% (XYLOCAINE) 5 ML TUBE ONE (12:17)
[2016-12-03] MEDS ORDERED: LACTATED RINGERS 1,000 ML IV ONE ×2 (12:17→13:46)
[2016-12-03] MEDS ORDERED: proPOfol 200 MG/20 ML (DIPRIVAN) VIAL IV ONE (12:17)
[2016-12-03] MEDS ORDERED: fentaNYL INJECTION 100 MCG/2 ML AMP ONE (12:18)
[2016-12-03] MEDS ORDERED: MIDAZOLAM 2 MG/2 ML (VERSED) VIAL ONE (12:18)
[2016-12-03] MEDS ORDERED: BUPIVACAINE 0.5% 30 ML (SENSORCAINE) VIAL ONE (12:21)
[2016-12-03] MEDS ORDERED: LIDOCAINE 1% INJ 20 ML (XYLOCAINE) VIAL ONE (12:21)
[2016-12-03] MEDS ORDERED: ceFAZolin 2 GM/NS 50 ML IV ONE (12:30)
--- NOTE | 2016-12-03 12:36 | Progress Note-Pre Operative ---
Pre-Operative Progress Note H&P Reviewed The H&P was reviewed, patient examined and no changes noted. Date H&P Reviewed: Dec 03, 2016 Time H&P Reviewed: 12:35 Pre-Operative Diagnosis: symtomatic cholelithiasis TERRY RODRIGUEZ DO Dec 03, 2016 12:36 pm
[2016-12-03] MEDS ORDERED: NEOSTIGMINE (BLOXIVERZ ) 1 MG/1ML 10 ML VIAL ONE (13:46)
[2016-12-03] MEDS ORDERED: GLYCOPYRROLATE 0.2 MG/ML (ROBINUL) 2 ML VIAL ONE (13:46)
[2016-12-03] MEDS ORDERED: SEVOFLURANE (ULTANE) 15 ML INHAL SOLN ONE (13:47)
--- NOTE | 2016-12-03 13:54 | Progress Note-Post Operative ---
Post-Operative Progess Note Surgeon (s)/Attenuator (s) Surgeon TERRY RODRIGUEZ DO Attenuator: Dr. Ha Pre-Operative Diagnosis symtomatic cholelithiasis Post-Operative Diagnosis same Post-Op Procedure Note Date of Procedure: Dec 03, 2016 Name of Procedure Performed: Laparoscopic cholecystectomy intraoperative cholangiogram Description of the Procedure: see note Findings of the Procedure see note Anesthesia Type general Estimated blood loss (mL): minimal Specimen(s) collected/removed gallbladder TERRY RODRIGUEZ DO Dec 03, 2016 1:54 pm
[2016-12-03] MEDS ORDERED: DOCU-143 PO (14:13)
[2016-12-03] MEDS ORDERED: HYDR-3812 PO (14:13)
[2016-12-03] MEDS ORDERED: morphine INJ 10 MG/ML 1ML (SYR OR VIAL) ONE (14:14)
[2016-12-03] MEDS ORDERED: MEPERIDINE (DEMEROL) INJ 50 MG/ML IVP PRN (14:15)
[2016-12-03] MEDS ORDERED: ONDANSETRON 4 MG/2 ML (SDV) Z0FRAN IVP PRN (14:15)
[2016-12-03] MEDS: morphine INJ 10 MG/ML 1ML (SYR OR VIAL) IVP PRN ×2 (14:19→14:23)
--- NOTE | 2016-12-03 14:23 | Discharge Inst-Simple/Standard ---
Discharge Inst-Standard Discharge Medications New, Converted or Re-Newed RX: RX on Chart Patient Instructions/Follow Up Plan of Care/Instructions/FU: FOLLOW UP WITH DR. RODRIGUEZ IN 2-3 WEEKS TAKE MEDICATION DIRECTED USE IS 10 TIMES AN HOUR WHILE AWAKE Activity as Tolerated: No Discharge Diet: No Restrictions Other Inst to Patient Follow up Appt: Make appointment for 2 weeks. Instructions: No lifting greater than 10 pounds. No strenuous activity. May shower in 24 hours, no tub bath or soaking. Use incentive spirometer at home as directed. No Smoking Skin/Wound Care: May remove bandages. You need to leave the white strips over incision on they will fall off on their own. Symptoms to Report: Appetite Changes, Extremity Discoloration, Numbness/Tingling, Swelling Increased , Bleeding Excessive, Eyesight Changes, Pain Increased, Urine Color Change, Constipation(Persistent), Fever over 101 degree F, Pain/Pressure in chest, Urinating Difficulty, Cough Up/Vomit Blood, Heart Beat Irreg/Pounding, Pain/ Pressure in jaw, Vaginal Bleeding Increase, Cramps in feet or legs, Lightheadedness, Pain/Pressure in shoulder, Diarrhea(Persistent), Memory Changes Suddenly, Questions/Concerns, Weight gain consecutive days, Dizziness/ Fainting, Nausea/Vomiting, Shortness of Breath, Weight gain over 2 pounds. If eyes or skin turn yellow notify physician. If questions or concerns contact your physician Or seek help at emergency department. ALEXIA ALDRICH APRN Dec 03, 2016 14:23
[2016-12-03] MEDS ORDERED: HYDROmorphone (DILAUDID) 2 MG/ML VIAL ONE (14:30)
[2016-12-03] MEDS: HYDROmorphone (DILAUDID) 2 MG/ML VIAL IVP PRN ×4 (14:34→15:03)
[2016-12-03 15:30] VITALS: BP 120/91
[2016-12-03] MEDS ORDERED: HYDROcodone/APAP 5 MG/325 MG (LORTAB) TAB PO ONE (15:45)
[2016-12-03 16:00] VITALS: BP 136/85
[2016-12-03 16:30] VITALS: BP 133/90
[2016-12-03 17:05] VITALS: BP 133/90
--- NOTE | 2016-12-03 19:00 | Diagnostic Imaging Report ---
INDICATION: Laparoscopic cholecystectomy. EXAMINATION: Operative cholangiogram was performed in the routine fashion with contrast injection via the cystic duct stump in surgery. FINDINGS: Contrast fills the biliary tree. There is mild prominence of the common duct without focal stricture or filling defect. Contrast does pass to the duodenum without obstruction. IMPRESSION: Negative operative cholangiogram with no sign of common duct stone or obstruction. 8 seconds of fluoroscopy time was used. Dictated by: Dictated on workstation # [id number]
--- NOTE | 2016-12-04 11:35 | OPERATIVE REPORT ---
PROCEDURE PHYSICIAN: TERRY RODRIGUEZ DATE OF PROCEDURE: 12/03/2016 PREOPERATIVE DIAGNOSIS: Symptomatic cholelithiasis. POSTOPERATIVE DIAGNOSIS: Symptomatic cholelithiasis. PROCEDURE: Laparoscopic cholecystectomy with intraoperative cholangiogram. SURGEON: Eugenio. ACID BLOWER: Dr. Ha, who assisted in retraction, dissection, and closure. ANESTHESIA: General. ESTIMATED BLOOD LOSS: Minimal. COMPLICATIONS: None. INDICATIONS: The patient is a 26-year-old female with gallstones and right upper quadrant abdominal pain. She had a common bile duct stone which she already underwent ERCP two days ago. She understands the risks and benefits of the procedure and wished to proceed with procedure. Consent was signed on the chart. PROCEDURE: The patient was taken to the operating suite. She was prepped and draped in sterile fashion. A surgical pause was performed. Local anesthetic of 0.5% Marcaine 1% lidocaine at 50:50 ratio was used to anesthetize the trocar sites prior to incision. Just superior to the umbilicus a 15 blade scalpel was used to make an incision. Cautery was used to dissect down to the fascia, which was then scored and grasped with Saba and elevated and the abdomen was entered. An 0 Vicryl suture was placed in a [id number] fashion for fascia closure. The balloon trocar was inserted in the abdomen and pneumoperitoneum was achieved. Under direct visualization of the laparoscope, a 5 minute trocar was placed in the subxiphoid region and two 5-mm trocars were placed in the right upper quadrant. The gallbladder was grasped, elevated. The cystic duct appear to be slightly dilated and the common bile duct appeared dilated as well. The cystic duct was then dissected around. In doing so a small portion of the back wall of the cystic duct near the gallbladder, a small hole was created. A clip was placed on the distal portion of the cystic duct. Cholangiogram was then attempted to be performed with an arrow catheter. The catheter was then unable to be fed down the small hole in the distal portion of the cystic duct. Therefore endo scissors were used to partially transect the duct and the catheter was inserted. Cholangiogram was then performed demonstrating no filling defects and contrast made its way into the duodenum without difficulty. The catheter was removed. Clips were placed on proximal portion of the cystic duct and this was then transected. The cystic artery was then dissected out. Clips were placed on proximal and distal portion and this was then transected. Hook cautery was gallbladder from the gallbladder fossa achieving hemostasis. The gallbladder was placed in an Endobag and removed via 12 mm trocar site. The abdomen was then irrigated with copious amounts of irrigation and suction. The abdomen was then desufflated. The trocars were removed. The skin was then closed using 4-0 Monocryl in a subcuticular fashion. The area was then washed and dried. Mastisol and Steri-Strips were applied and sterile bandages were applied. The patient tolerated procedure well without any complications. She was taken to recovery room in stable condition. Job ID: [id number] Dictated Date: 12/03/2016 21:01:27 Fruit Cutter Date: 12/04/2016 11:27:36 / reynaldo KAPLAN
--- OUTSIDE RECORDS SUMMARY | 2017-01-03 21:23 | XMS REPORT | Continuity of Care Document ---
Author Author Formerly [facility] Address Unknown Phone Unavailable Allergies Active Description Code Type Severity Reaction Onset Reported/Identified Relationship to Patient Clinical Status Yes No Known Drug Allergies [id number] Drug Allergy Unknown N/ A 12/02/2016 Medications Problems Date Dx Coded Attending Type [...] 663.31 CORD ENTANGLE NEC-DELIV 10/27/2012 Ot V06.1 ANMDCWOMWS-AGKSEAU-LQFLUTHSD, COMBINED [ 10/27/2012 Ot V06.4 [id number]-DKEDBK-TRBWU-RUBELLA 10/27/2012 Ot V27.0 DELIVER-SINGLE LIVEBORN 01/18/2013 TERRANCE [...] HYPERTEN-DELIVERED 05/02/2015 SUZIE ARIZMENDI MD Ot V06.1 ELPAXKFIJO-WJTSARL-NUYPDZJOX, COMBINED [ 05/02/2015 SUZIE ARIZMENDI MD Ot [...] MD, Ot V28.89 OTHER SPECIFIED SCREENING 06/13/2016 WAINWRIGHTLELAND CHANG MD Ot F17.210 NICOTINE DEPENDENCE, CIGARETTES, UNCOMPL 06/13/2016 LELAND TOWNSEND MD Ot L03.116 CELLULITIS OF LEFT LOWER LIMB 06/13/2016 LELAND TOWNSEND MD Ot R22.42 LOCALIZED SWELLING, MASS AND LUMP, LEFT 06/15/2016 LELAND TOWNSEND MD Ot F17.210 NICOTINE DEPENDENCE, CIGARETTES, UNCOMPL 06/15/2016 LELAND TOWNSEND MD Ot L03.116 CELLULITIS OF LEFT LOWER LIMB 06/15/2016 LELAND TOWNSEND MD Ot R22.42 LOCALIZED SWELLING, [...] SURVEY 10/09/2016 SUZIE ARIZMENDI MD Ot V22.1 SUPERVIS OTH NORMAL PREG 10/09/2016 SUZIE ARIZMENDI MD Ot V28.89 OTHER SPECIFIED SCREENING 10/13/2016 SUZIE ARIZMENDI MD Ot R10.2 PELVIC AND PERINEAL PAIN 10/21/2016 SUZIE ARIZMENDI MD Ot R10.2 PELVIC AND PERINEAL PAIN 11/16/2016 SAMANTHA MOORE DO Ot R10.2 PELVIC AND PERINEAL PAIN 11/16/2016 SAMANTHA MOORE DO Ot Z01.812 ENCOUNTER FOR PREPROCEDURAL LABORATORY E 11/16/2016 SAMANTHA MOORE DO Ot Z11.2 ENCOUNTER FOR SCREENING FOR OTHER BACTER 11/17/2016 SAMANTHA MOORE DO Ot R10.2 PELVIC AND PERINEAL PAIN 11/17/2016 SAMANTHA MOORE DO Ot Z01.812 ENCOUNTER FOR PREPROCEDURAL LABORATORY E 11/17/2016 FENECH DO, SAMANTHA S Ot Z11.2 ENCOUNTER FOR SCREENING FOR OTHER BACTER 11/19/2016 TERESA MORROWSAMANTHA Ot N80.3 ENDOMETRIOSIS OF PELVIC PERITONEUM 11/19/2016 TERESA SAMANTHA MORROW Ot N83.202 UNSPECIFIED OVARIAN CYST, LEFT SIDE 11/19/2016 TERESA MORROW SAMANTHA Aurelia Ot R10.2 PELVIC AND PERINEAL PAIN 11/23/2016 TERESA MORROWSAMANTHA Ot N80.3 ENDOMETRIOSIS OF PELVIC PERITONEUM 11/23/2016 TERESA SAMANTHA MORROW Ot N83.202 UNSPECIFIED OVARIAN CYST, LEFT SIDE 11/23/2016 TERESA SAMANTHA MORROW Ot R10.2 PELVIC AND PERINEAL PAIN 12/02/2016 ALVAROSAMANTHA CARRION DO Ot R10.811 RIGHT UPPER QUADRANT ABDOMINAL TENDERNES 12/03/2016 TERRY RODRIGUEZ DO Ot K80.20 CALCULUS OF GALLBLADDER W/O CHOLECYSTITI 12/03/2016 TERRY RODRIGUEZ DO Ot Z01.818 ENCOUNTER FOR OTHER PREPROCEDURAL EXAMIN 12/03/2016 TERRY RODRIGUEZ DO Ot K80.10 CALCULUS OF GALLBLADDER W CHRONIC CHOLEC 12/08/2016 TERRY RODRIGUEZ DO Ot K80.20 CALCULUS OF GALLBLADDER W/O CHOLECYSTITI 12/08/2016 TERRY RODRIGUEZ DO Ot Z01.818 ENCOUNTER FOR OTHER PREPROCEDURAL EXAMIN 12/10/2016 SAMANTHA MOORE DO Ot N80.3 ENDOMETRIOSIS OF PELVIC PERITONEUM 12/10/2016 TERESA SAMANTHA MORROW Ot N83.202 UNSPECIFIED OVARIAN CYST, LEFT SIDE 12/10/2016 ALVAROSAMANTHA CARRION DO Ot R10.2 PELVIC AND PERINEAL PAIN 12/11/2016 SAMANTHA MOORE DO Ot R10.811 RIGHT UPPER QUADRANT ABDOMINAL TENDERNES Procedures Code Description Performed By Performed On 96.49 OTHER INSTILLATION 10/24/2012 73.6 EPISIOTOMY 2012 96.49 OTHER INSTILLATION 10/05/2013 73.6 EPISIOTOMY 2013 23932 XRAY KNEE LEFT 3 VIEWS 07/04/2014 96.49 [...] ABO+Rh group OP NRG Transfusion band number [id number] NRG Blood group antibody screen NEGATIVE NRG Urine beta human chorionic gonadotropin (hCG) measurement - 12/03/16 11:24 Urine beta human chorionic gonadotropin (hCG) measurement NEGATIVE NEGATIVE Encounters ACCT No. Visit Date/Time Discharge Status Pt. Type Provider Facility Loc./Unit Complaint [id number] 07/04/2014 14:21:00 07/04/2014 23: 59:59 CLS Outpatient ERICA DIANE APRN [id number] 07/04/2014 10:30:00 07/04/2014 23: 59:59 CLS Outpatient ADÁN MURRY DO [id number] 04/27/2014 08:56:00 04/27/2014 23: 59:59 CLS Outpatient RADAH LYNN APRN
== END 2016-12-03 17:05 | disposition home or self-care (01) ==
LOC: SDC 11:30
PROVIDERS: ATTEND Surgery
DX: K80.10 Calculus of gallbladder with chronic cholecystitis without obstruction (principal)
CPT/HCPCS: 84703; 88304; 94664

== ENCOUNTER 2017-06-13 11:42 | Emergency (ER) | payer MEDICAID ==
[~2017-06-13] VITALS: Ht 170.2 cm; Wt 79.4 kg
[~2017-06-13 11:42] MED LIST changes: +DOCU-143 PO
[2017-06-13] MEDS ORDERED: MUPI22OI2 TP (12:03)
[2017-06-13] MEDS ORDERED: SULF1TAB35 PO (12:03)
--- NOTE | 2017-06-13 12:03 | ED Integumentary General ---
General Chief Complaint: Skin/Wound Problems Stated Complaint: FACIAL SWELLING/PAIN Nursing Triage Note: ARRIVED VIA AMB TO ROOM 09 WITH COMPLAINTS OF FACIAL EDEMA BETWEEN EYES. Source: patient Exam Limitations: no limitations History of Present Illness Time seen by provider: 12:00 Initial Comments To ER with facial swelling that began yesterday. This began as a small bump between her eyebrows but the swelling has progressed today. No fevers or chills. She took one of her sons Bactrim at home states that she has plenty of Bactrim left at home. Timing/Duration: yesterday Severity: moderate Allergies and Home Medications Allergies Coded Allergies: No Known Drug Allergies (Unverified , 12/02/16) Home Medications Lisinopril 10 Mg Tablet, 10 MG PO DAILY, (Reported) Constitutional: see HPI EENTM: see HPI Respiratory: no symptoms reported Cardiovascular: no symptoms reported Genitourinary: no symptoms reported Musculoskeletal: no symptoms reported Skin: no symptoms reported Psychiatric/Neurological: No Symptoms Reported Endocrine: No Symptoms Reported Past Tpvyyzv-Padlbk-Wllogh Hx Patient Social History Alcohol Use: Denies Use Recreational Drug Use: No Smoking Status: Current Everyday Smoker Type Used: Cigarettes Recent Foreign Travel: No Contact w/Someone Who Travel: No Recent Infectious Disease Expo: No Recent Hopitalizations: No Immunizations Up To Date Tetanus Booster (TDap): Less than 5yrs PED Vaccines UTD: Yes Seasonal Allergies Seasonal Allergies: No Surgeries History of Surgeries: Yes (wisdom teeth, DX LAP WITH SALPINGECTOMY) Surgeries: Tubal Ligation Respiratory History of Respiratory Disorde: No Cardiovascular History of Cardiac Disorders: Yes Cardiac Disorders: Hypertension Neurological History of Neurological Disord: No Reproductive System Hx Reproductive Disorders: No Sexually Transmitted Disease: No HIV/AIDS: No Female Reproductive Disorders: Menstrual Problems, 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, Ovarian Cyst 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 Gastrointestinal History of Gastrointestinal Di: Yes Gastrointestinal Disorders: Gall Bladder Disease Musculoskeletal History of Musculoskeletal Dis: Yes (RESTLESS LEG SYNDROME) Musculoskeletal Disorders: Chronic Back Pain Endocrine History of Endocrine Disorders: No HEENT History of HEENT Disorders: No Loss of Vision: Denies Hearing Impairment: Denies Cancer History of Cancer: No Psychosocial History of Psychiatric Problem: No Integumentary History of Skin or Integumenta: No Blood Transfusions History of Blood Disorders: No Adverse Reaction to a Blood Tr: No Family Medical History Significant Family History: No Pertinent Family Hx Family Medial History: Alcoholism 03 MOTHER Family history: Cardiovascular disease PATERNAL GRANDPA Family history: Diabetes mellitus PATERNAL GRANDPA Family history: Hypertension 03 MOTHER 03 FATHER Myocardial infarction PATERNAL GRANDPA No Family History of: Abdominal aortic aneurysm Physical Exam Vital Signs Vital Sign - Last 12Hours 06/13/17 11:45 Temp 98.0 Pulse 87 Resp 18 B/P (MAP) 147/98 Pulse Ox 98 Capillary Refill : Less Than 3 Seconds General Appearance: WD/WN, no apparent distress HEENT: PERRL/EOMI, normal ENT inspection Neck: non-tender, full range of motion Respiratory: no respiratory distress, no accessory muscle use Gastrointestinal: normal bowel sounds, non tender, soft Neurologic/Psychiatric: alert, normal mood/affect, oriented x 3 Skin: normal color, warm/dry Skin Problem Location: face Skin Problem Character: swelling, other (there is a quarter sized area of induration and mild erythema between the eyebrows without fluctuance. No pustule.) Progress/Results/Core Measures Results/Orders Vital Signs/I&O Vital Sign - Last 12Hours 06/13/17 11:45 Temp 98.0 Pulse 87 Resp 18 B/P (MAP) 147/98 Pulse Ox 98 Blood Pressure Mean: 114 Departure Impression Impression: Primary Impression: Facial abscess Disposition: 01 HOME, SELF-CARE Condition: Stable Departure-Patient Inst. Decision time for Depature: 12:02 Referrals: SUZIE ARIZMENDI MD (PCP/Family) Primary Care Physician Patient Instructions: Cellulitis (Skin Infection), Adult (DC) Add. Discharge Instructions: 1. Continue the Bactrim antibiotics taking them twice daily for the next 7 days at least. Warm compresses to this area, Tylenol and Motrin. Abdomen topical antibiotic ointment as well All discharge instructions reviewed with patient and/or family. Voiced understanding. Scripts Mupirocin (Mupirocin) 22 Gm Oint...g. 1 GM TP BID, #1 TUBE For 7 days Prov: ALBAN CRAWFORD APRN 06/13/17 Sulfamethoxazole/Trimethoprim (Bactrim Ds Tablet) 1 Each Tablet 1 EACH PO BID, #20 TAB Prov: ALBAN CRAWFORD APRN 06/13/17 Work/School Note: Work Release Form Date Seen in the Emergency Department: Jun 13, 2017 Return to Work: Jun 15, 2017 ALBAN CRAWFORD APRN Jun 13, 2017 12:03
[2017-06-13 12:08] VITALS: BP 147/98
== END 2017-06-13 12:08 | disposition home or self-care (01) ==
LOC: EDUNIT# 11:42 → ER 11:43
DX: L02.01 Cutaneous abscess of face (principal); I10 Essential (primary) hypertension; F17.210 Nicotine dependence, cigarettes, uncomplicated; Z82.49 Family history of ischemic heart disease and other diseases of the circulatory system; Z98.51 Tubal ligation status; Z87.448 Personal history of other diseases of urinary system
CPT/HCPCS: 99282

== ENCOUNTER → 2017-06-15 | Outpatient (CLI) | payer MEDICAID ==
[~2017-06-15] MED LIST changes: +MUPI22OI2 TP; +SULF1TAB35 PO
== END ==
LOC: LABNPT 11:45
PROVIDERS: ATTEND Surgery
DX: L02.01 Cutaneous abscess of face (principal)
CPT/HCPCS: 87070; 87077; 87186; 87205

== ENCOUNTER → 2017-08-16 | Outpatient (CLI) | payer MEDICAID ==
--- NOTE | 2017-08-16 15:12 | Diagnostic Imaging Report ---
EXAMINATION: Transabdominal and transvaginal pelvic ultrasound. INDICATION: Left pelvic pain. FINDINGS: The uterus is 8 x 5.6 x 4.1 cm. The endometrial stripe is 1.1 cm in thickness. The myometrium is homogeneous with no focal mass. Small amount of free fluid is seen in the pelvis. The right ovary is 3.6 x 2.1 x 2.1 cm. The left ovary is 2.9 x 1.8 x 2.2 cm. There is a hyperechoic nodule in the right ovary measuring 2 cm in size with peripheral vascularity. Vascularity is demonstrated over both ovaries with arterial flow. The urinary bladder appears unremarkable. IMPRESSION: 1. A 2 cm nonspecific hyperechoic nodule with peripheral vascularity is seen, may relate to a hemorrhagic follicle or hemorrhagic corpus luteum cyst. 2. Small amount of free fluid is seen in the pelvis. Dictated by: Dictated on workstation # [id number]
== END ==
LOC: RAD 13:20
PROVIDERS: ATTEND Family Medicine
DX: R19.09 Other intra-abdominal and pelvic swelling, mass and lump (principal)
CPT/HCPCS: 76830; 76856

== ENCOUNTER 2018-08-21 17:03 | Emergency (ER) | payer MEDICAID ==
[~2018-08-21] VITALS: Ht 175.3 cm; Wt 86.2 kg
[~2018-08-21 17:03] MED LIST changes: +ACHD5005 PO; -HYDR-3812 PO; +HYDR-4226 PO; -HYDR-757 PO
--- OUTSIDE RECORDS SUMMARY | 2018-08-21 17:16 | XMS REPORT ---
Author Author RODGER LEIVA Organization [facility] Address [address] [place] [address] Care Team Providers Care Financial Recording Clerk Name Role Phone RODGER LEIVA Unavailable PROBLEMS Type Condition ICD9-CM Code ULI10-TU Code Onset Dates Condition Status SNOMED Code Problem Other fall E888.8 Active 9056605 Problem Nausea with vomiting 787.01 Active 05074087 Problem Abdominal pain, right upper quadrant 789.01 Active 335842770 Problem examination or test, positive result V72.42 Active 135702854 Problem Generalized anxiety disorder F41.1 Active 72660721 Problem Major depressive disorder, recurrent episode, moderate F33.1 Active 52407774 Problem Pilonidal cyst without mention of abscess 685.1 Active 04286717 Problem Pain in joint, lower leg 719.46 Active 207653691 Problem Intestinal infection due to other organism, NEC 008.8 Active 75844652 Problem Restless legs syndrome [RLS] 333.94 Active 25279895 ALLERGIES No Information ENCOUNTERS Encounter Location Date Diagnosis [facility] [address] [address] Aug, [facility] [address] [place] [address] Jul, Major depressive disorder, recurrent episode, moderate F33.1 and Generalized anxiety disorder F41.1 [facility] [address] [id number] [id number] December, Dental examination V72.2 [facility] [id number] [place] [address] Nov, [facility] [id number] [address] Nov, [facility] [address] [place] [address] Jun, [facility] [place] [facility] [address] [id number] [place] [address] Jun, [facility] [address] [facility] [id number] [id number] Jun, [facility] [place] [facility] [address] [id number] [place] [address] Jun, [facility] [place] [facility] [address] [id number] [place] [address] Jun, [facility] [place] [facility] [address] [id number] [place] [address] Apr, [facility] [place] [facility] [address] [id number] [place] [address] Apr, [facility] [place] [facility] [address] [id number], [place] [address] Mar, [facility] [address] [id number] [id number] Mar, [facility] [place] [facility] [address] [id number] [place] [address] Mar, [facility] [place] [facility] [address] [id number] [place] [address] Mar, [facility] [place] [facility] [address] [id number], [place] [address] Feb, [facility] [place] [facility] [address] [id number], [place] [address] Feb, [facility] [place] [facility] [address] [id number] [place] [address] Jan, [facility] [place] [facility] [address] [id number] [place] [address] Jan, [facility] [place] [facility] [address] [id number] [place] [address] Jan, [facility] [place] [facility] [address], [place] [address] Jan, [facility] [address], [place] [address] Jan, [facility] [id number], [place] [address] Jan, [facility] [address], [place] [address] Jan, [facility] [address] [facility] [id number], [place] [address] December, [facility] [address] [place] [address] December, [facility] [address], [place] [address] December, [facility] [address], [place] [address] December, [facility] [address], [place] [address] Nov, [facility] [address], [place] [address] Oct, [facility] [address], [place] [address] Oct, [facility] [address], [place] [address] Apr, [facility] [id number], [place] [address] Nov, 2010 [facility] [address], [place] [address] Jun, [facility] [address], [place] [address] Jun, IMMUNIZATIONS No Known Immunizations SOCIAL HISTORY Never Assessed REASON FOR VISIT Intake PLAN OF CARE Activity Details Follow Up 3 Weeks Reason: VITAL SIGNS MEDICATIONS Medication Instructions Dosage Frequency Start Date End Date Duration Status Cymbalta 20 MG Orally Twice a day 1 capsule 12h 30 day(s) Active Naproxen 500 mg take 1 tablet (500 mg) by oral route 2 times per day with food Jun, Unknown RESULTS No Results PROCEDURES Procedure Date Ordered Result Body Site Psych diagnostic evaluation, established patient Aug 12, 2018 INSTRUCTIONS MEDICATIONS ADMINISTERED No Known Medications
--- OUTSIDE RECORDS SUMMARY | 2018-08-21 17:18 | XMS REPORT | Continuity of Care Document ---
Author Author [facility] Address Unknown Phone Unavailable Allergies Active Description Code Type Severity Reaction Onset Reported/Identified Relationship to Patient Clinical Status Yes No Known Drug Allergies [id number] Drug Allergy Unknown N/A 12/02/2016 Medications There is no data. Problems Date Dx Coded Attending Type Code Diagnosis Diagnosed By 12/24/2009 RADHA LYNN APRN 278.02 OVERWEIGHT 12/24/2009 RADHA LYNN APRN 401.1 HYPERTENSION, BENIGN ESSENTIAL 12/24/2009 ADÁN MURRY DO 278.02 OVERWEIGHT 12/24/2009 ADÁN MURRY DO 401.1 HYPERTENSION, BENIGN ESSENTIAL 12/24/2009 ERICA DIANE APRN 278.02 OVERWEIGHT 12/24/2009 ERICA DIANE APRN 401.1 HYPERTENSION, BENIGN ESSENTIAL 01/30/2010 RADHA LYNN APRN 784.0 HEADACHE 01/30/2010 ADÁN MURRY DO 784.0 HEADACHE 01/30/2010 ERICA DIANE APRN 784.0 HEADACHE 03/03/2010 RADHA LYNN APRN 251.1 HYPERINSULINISM 03/03/2010 RADHA LYNN APRN 626.4 IRREGULAR MENSTRUAL CYCLE 03/03/2010 ADÁN MURRY DO 251.1 HYPERINSULINISM 03/03/2010 ADÁN MURRY DO 626.4 IRREGULAR MENSTRUAL CYCLE 03/03/2010 ERICA DIANE APRN 251.1 HYPERINSULINISM 03/03/2010 ERICA DIANE APRN E [...] 463 TONSILLITIS ACUTE 12/11/2010 ADÁN MURRY DO 462 ACUTE PHARYNGITIS 12/11/2010 ADÁN MURRY DO [...] 663.31 CORD ENTANGLE NEC-DELIV 10/27/2012 Ot V06.1 DIPHTHERIA- TETANUS-PERTUSSIS, COMBINED [ 10/27/2012 Ot V06.4 VAC-MEASLE- MUMPS-RUBELLA 10/27/2012 Ot V27.0 DELIVER- SINGLE LIVEBORN 01/18/2013 TERRANCE CURRY, ESE Greene Ot 466.0 ACUTE BRONCHITIS 01/18/2013 TERRANCE CURRY, ESE Greene Ot 786.2 COUGH 03/06/2013 RADHA LYNN APRN 685.1 PILONIDAL CYST WITHOUT ABSCESS 03/06/2013 ADÁN MURRY DO 685.1 PILONIDAL CYST WITHOUT ABSCESS 03/06/2013 ERICA DIANE APRN 685.1 PILONIDAL CYST WITHOUT ABSCESS 08/26/2013 KYLEIGH CURRY, SUZIE Messina Ot 646.83 PREG COMPL NEC-ANTEPART 08/26/2013 SUZIE ARIZMENDI MD Ot 789.00 ABDOMINAL PAIN, UNSPECIFIED SITE 09/16/2013 SUZIE ARIZMENDI MD Ot 644.03 THRT ADITHYA LABOR-ANTEPART 10/08/2013 SUZIE ARIZMENDI MD Ot 650 NORMAL DELIVERY 10/08/2013 SUZIE ARIZMENDI [...] ARIZMENDI MD Ot V22.1 10/10/2014 SUZIE ARIZMENDI MD, Ot V22.1 02/14/2015 SUZIE ARIZMENDI MD Ot [...] Ot 649.63 05/01/2015 SUZIE ARIZMENDI MD Ot V28.81 05/01/2015 SUZIE ARIZMENDI MD Ot V22.1 05/01/2015 SUZIE ARIZMENDI MD, Ot V28.89 05/02/2015 SUZIE ARIZMENDI MD Ot 642.31 TRANS HYPERTEN-DELIVERED 05/02/2015 SUZIE ARIZMENDI MD Ot V06.1 [id number]-HUDOFED-JKRIUMGOJ, COMBINED [ 05/02/2015 SUZIE ARIZMENDI MD Ot V27.0 DELIVER-SINGLE LIVEBORN 06/12/2016 Ot 787.01 NAUSEA WITH VOMITING 06/12/2016 Ot 789.00 ABDOMINAL PAIN, UNSPECIFIED SITE 06/12/2016 Ot 649.63 UTERINE SIZE DATE DISCREPANCY, ANTEPARTU 06/12/2016 Ot 649.63 UTERINE SIZE DATE DISCREPANCY, ANTEPARTU 06/12/2016 SUZIE ARIZMENDI MD Ot 649.63 UTERINE SIZE DATE DISCREPANCY, ANTEPARTU 06/12/2016 SUZIE ARIZMENDI MD, Ot 649.63 UTERINE SIZE DATE DISCREPANCY, ANTEPARTU 06/12/2016 SUZIE ARIZMENDI MD Ot V28.81 ENCOUNTER FOR ANATOMIC SURVEY 06/12/2016 SUZIE ARIZMENDI MD Ot V22.1 SUPERVIS OT NORMAL PREG 06/12/2016 SUZIE ARIZMENDI MD, Ot V28.89 OTHER SPECIFIED SCREENING 06/13/2016 LELAND TOWNSEND MD Ot F17.210 NICOTINE DEPENDENCE, [...] ENCOUNTER FOR SCREENING FOR OTHER BACTER 11/19/2016 SAMANTHA MOORE DO Ot N80.3 ENDOMETRIOSIS OF PELVIC PERITONEUM 11/19/2016 SAMANTHA MOORE DO Ot N83.202 UNSPECIFIED OVARIAN CYST, LEFT SIDE 11/19/2016 SAMANTHA MOORE DO Ot R10.2 PELVIC AND PERINEAL PAIN 11/23/2016 SAMANTHA MOORE DO Ot N80.3 ENDOMETRIOSIS OF PELVIC PERITONEUM 11/23/2016 SAMANTHA MOORE DO Ot N83.202 UNSPECIFIED OVARIAN CYST, LEFT SIDE 11/23/2016 SAMANTHA MOORE DO Ot R10.2 PELVIC AND PERINEAL PAIN 12/02/2016 TERESA MORROW SAMANTHA Moses Ot R10.811 RIGHT UPPER QUADRANT ABDOMINAL TENDERNES [...] Ot N80.3 ENDOMETRIOSIS OF PELVIC PERITONEUM 12/10/2016 SAMANTHA MOORE DO Ot N83.202 UNSPECIFIED OVARIAN CYST, LEFT SIDE 12/10/2016 TERESA MORROW SAMANTHA Moses Ot R10.2 PELVIC AND PERINEAL PAIN 12/11/2016 TERESA MORROW SAMANTHA Moses Ot R10.811 RIGHT UPPER QUADRANT ABDOMINAL TENDERNES 06/13/2017 Ot 787.01 NAUSEA WITH VOMITING 06/13/2017 Ot 789.00 ABDOMINAL PAIN, UNSPECIFIED SITE 06/13/2017 Ot 649.63 UTERINE SIZE DATE DISCREPANCY, ANTEPARTU 06/13/2017 Ot 649.63 UTERINE SIZE DATE DISCREPANCY, ANTEPARTU 06/13/2017 KYLEIGH CURRY, SUZIE Messina Ot 649.63 UTERINE SIZE DATE DISCREPANCY, ANTEPARTU 06/13/2017 KYLEIGH CURRY, SUZIE Messina Ot 649.63 UTERINE SIZE DATE DISCREPANCY, ANTEPARTU 06/13/2017 SUZIE ARIZMENDI MD Ot V28.81 ENCOUNTER FOR ANATOMIC SURVEY 06/13/2017 SUZIE ARIZMENDI MD Ot V22.1 SUPERVIS OTH NORMAL PREG 06/13/2017 SUZIE ARIZMENDI MD Ot V28.89 OTHER SPECIFIED SCREENING 06/13/2017 SUZIE ARIZMENDI MD Ot R10.2 PELVIC AND PERINEAL PAIN 06/13/2017 FENECH DO, SAMANTHA S Ot R10.811 RIGHT UPPER QUADRANT ABDOMINAL TENDERNES 06/13/2017 TERRY RODRIGUEZ DO Ot K80.20 CALCULUS OF GALLBLADDER W/O CHOLECYSTITI 06/13/2017 TERRY RODRIGUEZ DO Ot Z01.818 ENCOUNTER FOR OTHER PREPROCEDURAL EXAMIN 06/13/2017 ALBAN CRAWFORD APRN Ot F17.210 NICOTINE DEPENDENCE, CIGARETTES, UNCOMPL 06/13/2017 ALBAN CRAWFORD APRN Ot I10 ESSENTIAL (PRIMARY) HYPERTENSION 06/13/2017 ALBAN CRAWFORD APRN Ot L02.01 CUTANEOUS ABSCESS OF FACE 06/13/2017 ALBAN CRAWFORD APRN Ot R22.0 LOCALIZED SWELLING, MASS AND LUMP, HEAD 06/13/2017 ALBAN CRAWFORD APRN Ot Z82.49 FAMILY HX OF ISCHEM HEART DIS AND OTH DI 06/13/2017 ALBAN CRAWFORD APRN Ot Z87.448 PERSONAL HISTORY OF OTHER DISEASES OF UR 06/13/2017 ALBAN CRAWFORD APRN Ot Z98.51 TUBAL LIGATION STATUS 06/17/2017 TERRY RODRIGUEZ DO Ot L02.01 CUTANEOUS ABSCESS OF FACE 06/21/2017 TERRY RODRIGUEZ DO Ot L02.01 CUTANEOUS ABSCESS OF FACE 06/21/2017 Ot 787.01 NAUSEA WITH VOMITING 06/21/2017 Ot 789.00 ABDOMINAL PAIN, UNSPECIFIED SITE 06/21/2017 Ot 649.63 UTERINE SIZE DATE DISCREPANCY, ANTEPARTU 06/21/2017 Ot 649.63 UTERINE SIZE DATE DISCREPANCY, ANTEPARTU 06/21/2017 SUZIE ARIZMENDI MD Ot 649.63 UTERINE SIZE DATE DISCREPANCY, ANTEPARTU 06/21/2017 SUZIE ARIZMENDI MD Ot 649.63 UTERINE SIZE DATE DISCREPANCY, ANTEPARTU 06/21/2017 SUZIE ARIZMENDI MD Ot V28.81 ENCOUNTER FOR ANATOMIC SURVEY 06/21/2017 SUZIE ARIZMENDI MD Ot V22.1 SUPERVIS OTH NORMAL PREG 06/21/2017 SUZIE ARIZMENDI MD Ot V28.89 OTHER SPECIFIED SCREENING 06/21/2017 SUZIE ARIZMENDI MD Ot R10.2 PELVIC AND PERINEAL PAIN 06/21/2017 FENECH DO, SAMANTHA S Ot R10.811 RIGHT UPPER QUADRANT ABDOMINAL TENDERNES 06/21/2017 TERRY RODRIGUEZ DO Ot K80.20 CALCULUS OF GALLBLADDER W/O CHOLECYSTITI 06/21/2017 TERRY RODRIGUEZ DO Ot Z01.818 ENCOUNTER FOR OTHER PREPROCEDURAL EXAMIN 06/21/2017 TERRY RODRIGUEZ DO Ot L02.01 CUTANEOUS ABSCESS OF FACE 06/30/2017 TERRY RODRIGUEZ DO Ot L02.01 CUTANEOUS ABSCESS OF FACE 08/16/2017 Ot 649.63 UTERINE SIZE DATE DISCREPANCY, ANTEPARTU 08/16/2017 Ot 649.63 UTERINE SIZE DATE DISCREPANCY, ANTEPARTU 08/16/2017 SUZIE ARIZMENDI MD Ot 649.63 UTERINE SIZE DATE DISCREPANCY, ANTEPARTU 08/16/2017 SUZIE ARIZMENDI MD Ot 649.63 UTERINE SIZE DATE DISCREPANCY, ANTEPARTU 08/16/2017 SUZIE ARIZMENDI MD Ot V28.81 ENCOUNTER FOR ANATOMIC SURVEY 08/16/2017 SUZIE ARIZMENDI MD Ot V22.1 SUPERVIS OTH NORMAL PREG 08/16/2017 SUZIE ARIZMENDI MD Ot V28.89 OTHER SPECIFIED SCREENING 08/16/2017 SUZIE ARIZMENDI MD Ot R10.2 PELVIC AND PERINEAL PAIN 08/16/2017 FENECH DO, SAMANTHA S Ot R10.811 RIGHT UPPER QUADRANT ABDOMINAL TENDERNES 08/16/2017 TERRY RODRIGUEZ DO Ot K80.20 CALCULUS OF GALLBLADDER W/O CHOLECYSTITI 08/16/2017 TERRY RODRIGUEZ DO Ot Z01.818 ENCOUNTER FOR OTHER PREPROCEDURAL EXAMIN 08/16/2017 TERRY RODRIGUEZ DO Ot L02.01 CUTANEOUS ABSCESS OF FACE 08/17/2017 SUZIE ARIZMENDI MD Ot R19.09 OTHER INTRA-ABDOMINAL AND PELVIC SWELLIN 09/01/2017 KYLEIGH CURRY, SUZIE Messina Ot R19.09 OTHER INTRA-ABDOMINAL AND PELVIC SWELLIN Procedures Code Description Performed By Performed On 96.49 OTHER INSTILLATION 10/24/2012 73.6 EPISIOTOMY 10/25/2012 96.49 OTHER INSTILLATION 10/05/2013 73.6 EPISIOTOMY 10/06/2013 98119 XRAY KNEE LEFT 3 VIEWS 07/04/2014 96.49 OTHER INSTILLATION 04/29/2015 73.6 EPISIOTOMY 04/30/2015 Results Test Result Range Methicillin resistant Staphylococcus aureus (MRSA) screening culture - 10:30 Methicillin resistant Staphylococcus aureus (MRSA) screening culture NEG NRG Complete blood count (CBC) with automated white blood cell (WBC) differential - 11/16/16 10:35 Blood leukocytes automated count (number/volume) 6.9 10*3/uL 4.3-11.0 Blood erythrocytes automated count (number/volume) 5.25 10*6/uL 4.35-5.85 Venous blood hemoglobin measurement (mass/volume) 13.7 [...] Automated blood platelet mean volume measurement 10.8 [foz_us] 7.4-10.4 Automated blood neutrophils/100 leukocytes 62 % [...] ABO+Rh group OP NRG Transfusion band number [id number] NRG Blood group antibody screen NEGATIVE NRG Urine beta human chorionic gonadotropin (hCG) measurement - 12/03/16 11:24 Urine beta human chorionic gonadotropin (hCG) measurement NEGATIVE NEGATIVE Gram stain microscopy - 06/14/17 00:00 GRAM STAIN RESULT NO WBC'S OR BACTERIA OBSERVED NRG Bacteria identification in wound by culture - 06/14/17 00:00 Bacteria identification in wound by culture [id number] NRG FREE TEXT EXTERNAL SENSITIVITY REPORTED 06/16 15:35 NRG QUANTITY OF GROWTH Moderate Growth NRG MRSA AGAR MRSA isolated (Screening test for MRSA is positive) NR Bacterial susceptibility panel - 06/14/17 00:00 Oxacillin susceptibility test by minimum inhibitory concentration > = NRG Gentamicin susceptibility test by minimum inhibitory concentration < = NRG Clindamycin susceptibility test by minimum inhibitory concentration <= NRG Erythromycin susceptibility test by minimum inhibitory concentration >= NRG Trimethoprim/sulfamethoxazole susceptibility test by minimum inhibitoryconcentration <= NRG Vancomycin susceptibility test by minimum inhibitory concentration 1 NRG Levofloxacin susceptibility test by minimum inhibitory concentration 0.5 NRG Rifampin susceptibility test by minimum inhibitory concentration <= NRG Tetracycline susceptibility test by minimum inhibitory concentration <= NRG Encounters ACCT No. Visit Date/Time Discharge Status Pt. Type Provider Facility Loc./Unit Complaint [id number] 07/04/2014 14:21:00 07/04/2014 23:59:59 CLS Outpatient ERICA DIANE APRN [id number] 07/04/2014 10:30:00 07/04/2014 23:59:59 CLS Outpatient ADÁN MURRY DO [id number] 04/27/2014 08:56:00 04/27/2014 23:59:59 CLS Outpatient RADHA LYNN APRN [id number] 08/16/2017 13:20:00 08/16/2017 23:59:59 CLS Outpatient SUZIE ARIZMENDI MD [facility] RAD PELVIC PAIN [id number] 06/15/2017 11:45:00 06/15/2017 23:59:59 CLS Outpatient TERRY RODRIGUEZ DO [facility] LABNPT [id number] 06/13/2017 11:43:00 06/13/2017 12:08:00 DIS Emergency ALBAN CRAWFORD APRN [facility] ER FACIAL SWELLING/PAIN [id number] 12/03/2016 11:30:00 12/03/2016 17:05:00 DIS Outpatient TERRY RODRIGUEZ DO [facility] SDC STONES [id number] 12/02/2016 14:56:00 12/02/2016 23:59:59 CLS Outpatient TERRY RODRIGUEZ DO [facility] PREOP GALLSTONES [id number] 12/01/2016 11:49:00 12/01/2016 23:59:59 CLS Outpatient TERESA MORROW SAMANTHA S [facility] RAD RUQ PAIN [id number] 11/19/2016 08:07:00 11/19/2016 12:30:00 DIS Outpatient ALVAROSAMANTHA CARRION DO S [facility] SDC LEFT PELVIC PAIN [id number] 11/16/2016 10:15:00 11/16/2016 13:05:00 DIS Outpatient ALVAROSHEYLA MORROW SAMANTHA S [facility] PREOP LEFT PELVIC PAIN [id number] 10/09/2016 10:04:00 10/09/2016 23:59:59 CLS Outpatient SUZIE ARIZMENDI MD [facility] RAD PELVIC PAIN [id number] 06/12/2016 23:54:00 06/13/2016 00:15:00 DIS Emergency LELAND TOWNSEND MD [facility] ER LEFT KNEE PAIN, SWOLLEN [id number] 04/29/2015 19:11:00 05/02/2015 11:45:00 DIS Inpatient SUZIE ARIZMENDI MD [facility] LDRP INDUCTION [id number] 2015 18:41:00 2015 19:10:00 DIS Outpatient SUZIE ARIZMENDI MD [facility] WSo POSS ELEVATED BP [id number] 04/17/2015 06:58:00 04/17/2015 09:00:00 DIS Outpatient SUZIE ARIZMENDI MD [facility] WSo C/O ABD PAIN [id number] 02/24/2015 20:27:00 02/24/2015 21:35:00 DIS Outpatient SUZIE ARIZMENDI MD [facility] [employer] TIGHTENING GASTRIC PAIN [id number] 02/14/2015 06:31:00 02/14/2015 08:46:00 DIS Outpatient SUZIE ARIZMENDI MD [facility] [employer] ABD PAIN [id number] 12/20/2014 13:35:00 12/20/2014 23:59:59 CLS Outpatient SUZIE ARIZMENDI MD [facility] RAD SURVEY [id number] 09/28/2014 13:25:00 09/28/2014 23:59:59 CLS Outpatient SUZIE ARIZMENDI MD [facility] RAD DATING [id number] 10/12/2013 11:48:00 10/12/2013 14:50:00 DIS Emergency JERROD RUBI MD [facility] ER POST BLEEDING [id number] 10/05/2013 18:55:00 10/08/2013 09:55:00 DIS Inpatient SUZIE ARIZMENDI MD [facility] WS INDUCTION [id number] 09/16/2013 16:05:00 09/16/2013 18:07:00 DIS Outpatient SUZIE ARIZMENDI MD [facility] WSo CONTRACTIONS [id number] 08/26/2013 20:20:00 08/26/2013 22:50:00 DIS Outpatient SUZIE ARIZMENDI MD [facility] WSo ABD PAIN [id number] 05/24/2013 09:45:00 05/24/2013 23:59:59 CLS Outpatient SUZIE ARIZMENDI MD [facility] RAD FUNDAL HEIGHT DISCREPENCY [id number] 03/09/2013 09:55:00 03/09/2013 23:59:59 CLS Outpatient KYLEIGH CURRY, SUZIE Messina [facility] RAD SIZE DATE DIS [id number] 01/18/2013 19:29:00 01/18/2013 23:44:00 DIS Emergency TERRANCE CURRY, ESE Greene [facility] ER CHEST CONGESTION [id number] 10/24/2012 19:00:00 Document Registration [id number] 10/11/2012 02:43:00 Document Registration [id number] 08/26/2012 20:23:00 Document Registration [id number] 06/21/2012 15:09:00 Document Registration [id number] 03/30/2012 09:39:00 Document Registration [id number] 01/26/2012 08:27:00 Document Registration [id number] 01/16/2012 20:13:00 Document Registration [id number] 10/31/2011 22:12:00 Document Registration [id number] 08/02/2011 21:27:00 Document Registration [id number] 03/01/2011 20:03:00 Document Registration [id number] 2015 18:42:58 ACT Document Registration [id number] 08/12/2018 15:30:00 08/12/2018 23:59:59 CLS Outpatient MARIANO FLORES [facility]
[2018-08-21 18:01] LABS: BILIRUBIN,URINE NEGATIVE (NEGATIVE); CLARITY,URINE CLEAR; COLOR,URINE YELLOW; GLUCOSE, URINE (UA) NEGATIVE (NEGATIVE); KETONES,URINE NEGATIVE (NEGATIVE); LEUKOCYTE ESTERASE ,URINE 3+ (NEGATIVE); NITRITE,URINE NEGATIVE (NEGATIVE); PH,URINE 7 (5-9); PROTEIN,URINE NEGATIVE (NEGATIVE); UROBILINOGEN,URINE NORMAL (NORMAL)
--- NOTE | 2018-08-21 18:10 | ED GU-Female ---
General Chief Complaint: Abdominal/GI Problems Stated Complaint: ABD PAIN Nursing Triage Note: Pt ambulated to triage rm. Pt reports abdominal pain that began "a couple of hours ago." Pt states, " My whole vaginal area hurts and hurts into my uterus. " Pt reports dizziness that just began in waiting room. Pt denies nausea or vomiting. Pt reports diarrhea, but states that is the norm for pt. Nursing Sepsis Screen: No Definite Risk Source: patient Exam Limitations: no limitations History of Present Illness Date Seen by Provider: Aug 21, 2018 Time Seen by Provider: 17:58 Initial Comments Patient presents to ER by private conveyance with chief complaint of since about 3:00 this afternoon she started experiencing some pain in her uterus she says as well as her external vulva. No itching or rash. She's had some occasional discharge. She is sexually active exclusively with one man. She's had no fevers chills nausea vomiting or constipation but she does have chronic diarrhea she's never had worked up for IBS versus IBD versus other. She has sometimes describe dyspareunia but no dysuria. She has a history of endometriosis as status post tubal ligation and then having her tubes removed by Dr. MOORE. She also had a shot of Depo-Lupron which helped for about 5 or 6 months. She never followed up after that. She denies having a history of STI's. She's had her gallbladder out historically as well. Her Pap smears are up-to- date done by Dr. Arizmendi. Allergies and Home Medications Allergies Coded Allergies: No Known Drug Allergies (Unverified , 12/02/16) Home Medications Lisinopril 10 Mg Tablet, 10 MG PO DAILY, (Reported) Mupirocin 22 Gm Oint...g., 1 GM TP BID For 7 days Prescribed by: ALBAN CRAWFORD on 06/13/17 1203 Sulfamethoxazole/Trimethoprim 1 Each Tablet, 1 EACH PO BID Prescribed by: ALBAN CRAWFORD on 06/13/17 1203 Patient Home Medication List Home Medication List Reviewed: Yes Review of Systems Review of Systems Constitutional: No chills, No diaphoresis EENTM: No ear discharge, No ear pain Respiratory: No cough, No short of breath Cardiovascular: No edema, No Hx of Intervention Gastrointestinal: see HPI, abdominal pain (Suprapubic tenderness and pain); No constipation; diarrhea; No nausea Genitourinary: burning, discharge; denies dysuria; pain Musculoskeletal: No back pain, No joint pain Past Wdpmvka-Toehfk-Ckhwfo Hx Patient Social History Alcohol Use: Denies Use Recreational Drug Use: No Smoking Status: Current Everyday Smoker Type Used: Cigarettes Recent Foreign Travel: No Contact w/Someone Who Travel: No Recent Infectious Disease Expo: No Recent Hopitalizations: No Immunizations Up To Date Tetanus Booster (TDap): Less than 5yrs PED Vaccines UTD: Yes Seasonal Allergies Seasonal Allergies: No Past Medical History Surgeries: Yes (wisdom teeth, DX LAP WITH SALPINGECTOMY) Tubal Ligation Respiratory: No Cardiac: Yes Hypertension Neurological: No Last Menstrual Period: Jul 21, 2018 Reproductive Disorders: No Female Reproductive Disorders: Menstrual Problems, 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, 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 Sexually Transmitted Disease: No HIV/AIDS: No Genitourinary: No Gastrointestinal: Yes Gall Bladder Disease Musculoskeletal: Yes (RESTLESS LEG SYNDROME) Chronic Back Pain Endocrine: No HEENT: No Loss of Vision: Denies Hearing Impairment: Denies Cancer: No Psychosocial: No Integumentary: No Blood Disorders: No Adverse Reaction/Blood Tranf: No Family Medical History Alcoholism 03 MOTHER Family history: Cardiovascular disease PATERNAL GRANDPA Family history: Diabetes mellitus PATERNAL GRANDPA Family history: Hypertension 03 MOTHER 03 FATHER Myocardial infarction PATERNAL GRANDPA No Family History of: Abdominal aortic aneurysm No Pertinent Family Hx Physical Exam Vital Signs Vital Signs - First Documented 08/21/18 17:29 Temp 98.3 Pulse 102 Resp 16 B/P (MAP) 158/85 (109) Pulse Ox 95 O2 Delivery Room Air Capillary Refill : Less Than 3 Seconds Height, Weight, BMI Height: 5'9.00" Weight: 190lbs. 2.0oz. 86.975649bq; 27.2 BMI Method:Actual General Appearance: WD/WN, no apparent distress HEENT: PERRL/EOMI, normal ENT inspection, TMs normal, pharynx normal Cardiovascular: normal peripheral pulses, regular rate, rhythm, no edema Respiratory: no respiratory distress, no accessory muscle use Gastrointestinal: normal bowel sounds, soft, no organomegaly; No guarding, No rebound; tenderness (Suprapubic region) Genital/Rectal: normal genital exam, normal vaginal exam Pelvic: normal external exam, normal adnexa, no cerv. motion tender, no masses Progress/Results/Core Measures Suspected Sepsis Recent Fever Within 48 Hours: No Infection Criteria Present: None New/Unexplained Altered Menta: No Sepsis Screen: No Definite Risk SIRS Temperature:98.3 Pulse: 102 Respiratory Rate: 16 Blood Pressure 158 /85 Mean: 109 Results/Orders Lab Results Laboratory Tests Test 08/21/18 17:56 08/21/18 18:15 Range/Units Urine Color YELLOW Urine Clarity CLEAR Urine pH 7 5-9 Urine Specific [place] 1.005 L 1.016-1.022 Urine Protein NEGATIVE NEGATIVE Urine Glucose (UA) NEGATIVE NEGATIVE Urine Ketones NEGATIVE NEGATIVE Urine Nitrite NEGATIVE NEGATIVE Urine Bilirubin NEGATIVE NEGATIVE Urine Urobilinogen NORMAL NORMAL MG/DL Urine Leukocyte Esterase 3+ H NEGATIVE Urine RBC (Auto) NEGATIVE NEGATIVE Urine RBC NONE /HPF Urine WBC 5-10 H /HPF Urine Squamous Epithelial Cells 10-20 /HPF Urine Crystals NONE /LPF Urine Bacteria TRACE /HPF Urine Casts NONE /LPF Urine Mucus NEGATIVE /LPF Urine Culture Indicated YES Urine Test NEGATIVE NEGATIVE My Orders Orders - TAL LINDSEY Us Non Ob Transvaginal [id number] (08/21/18 18:03) Hydrocodone/Apap 5/325 Tablet (Lortab 5 (08/21/18 18:15) Hcg,Qualitative Urine (08/21/18 18:03) Neisseria Gonorrhea Swab (08/21/18 18:03) Chlamydia Trachomatis Swab (08/21/18 18:03) Wet Prep (08/21/18 18:03) Azithromycin Tablet (Zithromax Tablet) (08/21/18 20:15) Ceftriaxone For Im Use (Rocephin For Im (08/21/18 20:15) Medications Given in ED Current Medications Medications Dose Ordered Sig/Raul Route Start Time Stop Time Status Last Admin Dose Admin Acetaminophen/ Hydrocodone Bitart 1 tab ONCE ONCE PO 08/21/18 18:15 08/21/18 18:16 DC 08/21/18 18:15 1 TAB Vital Signs/I&O 08/21/18 17:29 Temp 98.3 Pulse 102 Resp 16 B/P (MAP) 158/85 (109) Pulse Ox 95 O2 Delivery Room Air Capillary Refill : Less Than 3 Seconds Blood Pressure Mean: 109 Progress Note #1: Time: 18:10 Progress Note External vaginal exam, GC, chlamydia, wet prep and transvaginal ultrasound. Ultrasound from a year ago demonstrated a right, less than 2 cm, ovarian cyst or hemorrhagic corpus luteum. Progress Note #2: Time: 19:56 Progress Note Wet prep negative. Possibility of PID exists we can hit her with some Rocephin and azithromycin today. Felicity for her pain. She says her pain did improve with the tablet. Diagnostic Imaging Diagonstic Imaging: Ultrasound Plain Films/CT/US/NM/MRI: pelvis (Transvaginal non-OB) Comments NAME: FARTUN PERALTA [facility] REC#: [id number] PHYSICIAN: TAL LINDSEY MD CC: YUNIER ANGEL MD; TAL LINDSEY Page 1 of 1 RADIOLOGY REPORT [facility] [place] [place] CC: YUNIER ANGEL MD; TAL LINDSEY Page 1 of 1 RADIOLOGY REPORT NAME: FARTUN PERALTA [facility] REC#: [id number] PT STATUS: REG ER : 1990 PHYSICIAN: TAL LINDSEY MD ADMIT DATE: 08/21/18/ER Signed Date of Exam: 08/21/18 US NON OB TRANSVAGINAL [id number] INDICATION: Pelvic pain, discharge COMPARISON: 08/16/2017 TECHNIQUE: Transabdominal and transvaginal pelvic ultrasound was performed on 08/21/2018 FINDINGS: The uterus is retroflexed. The uterus is within normal limits in size. No focal uterine mass. The endometrium measures 1.1 cm, which is within normal limits. The bilateral ovaries are unremarkable with small follicles present. Vascular flow is noted within the bilateral ovaries. Trace free fluid within the lower pelvis. IMPRESSION: Retroflexed uterus. Trace free fluid within the lower pelvis, likely simply physiologic. Dictated by: Dictated on workstation # [id number] Dict: 08/21/181904 Trans: 08/21/181926 Interpreted by: YUNIER ANGEL MD Electronically signed by: YUNIER ANGEL MD 08/21/181926 Reviewed: Reviewed by Me Departure Impression Primary Impression: Vulvar pain Additional Impressions: Suprapubic abdominal pain UTI (urinary tract infection) Qualified Codes: N30.00 - Acute cystitis without hematuria Disposition: HOME, SELF-CARE Condition: Improved Departure-Patient Inst. Decision time for Depature: 20:02 Referrals: SUZIE ARIZMENDI MD (PCP/Family) Primary Care Physician Patient Instructions: Acute Cystitis (DC) Add. Discharge Instructions: Make plans follow up with Dr. Duncan outpatient for results of your lab tests that we sent out today. 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 Use Tylenol and ibuprofen for your pain and if that does not work you can use the Felicity one tablet every 6 hours as needed. Felicity will cause constipation and drowsiness. All discharge instructions reviewed with patient and/or family. Voiced understanding. Scripts Cephalexin (Keflex) 500 Mg Capsule 500 MG PO BID for 5 Days, #10 CAP 0 Refills Prov: TAL LINDSEY 08/21/18 Hydrocodone Bit/Acetaminophen (Hydrocodone/Acetaminophen 5/325mg Tablet) 1 Tab Tab 1 EACH PO Q4-6HR PRN for PAIN-MODERATE MDD 10 for 5 Days, #10 TAB 0 Refills Prov: TAL LINDSEY 08/21/18 Copy Copies To 1: SUZIE ARIZMENID MD, TITUS J Aug 21, 2018 18:10
[2018-08-21 18:13] LABS: BACTERIA,URINE TRACE /HPF
[2018-08-21] MEDS ORDERED: HYDROcodone/APAP 5 MG/325 MG (LORTAB) TAB PO ONE (18:15)
--- NOTE | 2018-08-21 19:11 | Diagnostic Imaging Report ---
INDICATION: Pelvic pain, discharge COMPARISON: 08/16/2017 TECHNIQUE: Transabdominal and transvaginal pelvic ultrasound was performed on 08/21/2018 FINDINGS: The uterus is retroflexed. The uterus is within normal limits in size. No focal uterine mass. The endometrium measures 1.1 cm, which is within normal limits. The bilateral ovaries are unremarkable with small follicles present. Vascular flow is noted within the bilateral ovaries. Trace free fluid within the lower pelvis. IMPRESSION: Retroflexed uterus. Trace free fluid within the lower pelvis, likely simply physiologic. Dictated by: Dictated on workstation # [id number]
[2018-08-21] MEDS ORDERED: cefTRIAXone 250 MG/2.5 ML for IV (ROCEPHIN) ONE (20:03)
[2018-08-21] MEDS ORDERED: LIDOCAINE 1% INJ 20 ML 20 ML VIAL ONE (20:04)
[2018-08-21] MEDS ORDERED: ACHD5005 PO (20:12)
[2018-08-21] MEDS ORDERED: CEPH-507 PO (20:12)
[2018-08-21] MEDS ORDERED: AZITHROMYCIN 250 MG TAB (ZITHROMAX) PO ONE (20:15)
[2018-08-21] MEDS ORDERED: cefTRIAXone 250 MG/ML vial (IM ONLY) IM ONE (20:15)
[2018-08-21 20:20] VITALS: BP 144/98
== END 2018-08-21 20:20 | disposition home or self-care (01) ==
LOC: EDUNIT# 17:03 → ER 17:04
DX: N39.0 Urinary tract infection, site not specified (principal); N94.819 Vulvodynia, unspecified; I10 Essential (primary) hypertension; G25.81 Restless legs syndrome; F17.210 Nicotine dependence, cigarettes, uncomplicated; Z98.51 Tubal ligation status; Z82.49 Family history of ischemic heart disease and other diseases of the circulatory system; Z87.448 Personal history of other diseases of urinary system
CPT/HCPCS: 36415; 76830; 81000; 84703; 87077; 87088; 87210; 87491; 87591; 99284

== ENCOUNTER → 2018-12-12 | Outpatient (CLI) | payer MEDICAID ==
[~2018-12-12] MED LIST changes: +CEPH-507 PO
== END ==
LOC: CARD 16:12
PROVIDERS: ATTEND Family Medicine
DX: R07.9 Chest pain, unspecified (principal)
CPT/HCPCS: 93005

== ENCOUNTER → 2019-01-06 | Outpatient (CLI) | payer MEDICAID ==
--- NOTE | 2019-01-06 11:59 | Diagnostic Imaging Report ---
INDICATION: Left breast abscess. FINDINGS: Sonographic interrogation of the left breast retroareolar region was performed. There is a complex fluid collection just deep to the nipple measuring approximately 11 mm x 7 mm x 11 mm. This most likely represents an abscess or hematoma. No other abnormalities are seen. IMPRESSION: Complex fluid collection in the retroareolar left breast, likely abscess. Followup left breast ultrasound in short interval in 4-6 weeks is recommended to confirm clearing. ACR BI-RADS Category 3: Probably benign findings. Result letter will be mailed to the patient. Note: At least 10% of breast cancer is not imaged by mammography. Dictated by: Dictated on workstation # [id number]
== END ==
LOC: RAD 11:02
PROVIDERS: ATTEND Surgery
DX: N61.1 Abscess of the breast and nipple (principal)
CPT/HCPCS: 76642

== ENCOUNTER 2019-02-28 12:30 | Outpatient (CLI) | payer MEDICAID ==
[~2019-02-28] VITALS: Ht 175.3 cm; Wt 81.7 kg
[2019-02-28] MEDS ORDERED: ALPR1TAB7 PO (12:34)
[2019-02-28] MEDS ORDERED: BUPR150T9 PO (12:34)
== END 2019-02-28 12:56 | disposition home or self-care (01) ==
LOC: PREOP 12:30
PROVIDERS: ATTEND Surgery
DX: Z01.818 Encounter for other preprocedural examination (principal)

== ENCOUNTER 2019-03-03 11:06 | Day surgery (SDC) | payer MEDICAID ==
[~2019-03-03] VITALS: Ht 175.3 cm; Wt 77.8 kg
[2019-03-03] VITALS (11 sets, daily range): BP systolic 95–130; BP diastolic 49–97
[~2019-03-03 11:06] MED LIST changes: +ALPR1TAB7 PO; +BUPR150T9 PO
--- OUTSIDE RECORDS SUMMARY | 2019-03-03 11:26 | XMS REPORT ---
Author Author Migration, Doctor Organization [facility] Address Unknown Phone Unavailable Care Team Providers Care Correction Officer Name Role Phone Migration, Doctor Unavailable Unavailable PROBLEMS Type Condition ICD9-CM Code DGF67-YL Code Onset Dates Condition Status SNOMED Code Problem Other fall E888.8 Active 5480279 Problem Abdominal pain, right upper quadrant 789.01 Active 114653651 Problem Nausea with vomiting 787.01 Active 55515661 Problem Major depressive disorder, recurrent episode, moderate F33.1 Active 08535050 Problem examination or test, positive result V72.42 Active 327404613 Problem Generalized anxiety disorder F41.1 Active 75163241 Problem Pain in joint, lower leg 719.46 Active 406560143 Problem Pilonidal cyst without mention of abscess 685.1 Active 56675847 Problem Restless legs syndrome [RLS] 333.94 Active 72278045 Problem Intestinal infection due to other organism, NEC 008.8 Active 79718065 ALLERGIES No Information ENCOUNTERS Encounter Location Date Diagnosis [facility] [address] [id number] [address] Jul, Major depressive disorder, recurrent episode, moderate F33.1 and Generalized anxiety disorder F41.[address] [id number] [id number] December, Dental examination V72.2 [facility] [id number] [address] Nov, [facility] [id number] [place] [address] Nov, [facility] [id number] [address] Jun, [facility] [address] [id number] [address] Jun, [facility] [address] [id number] [place] [id number] Jun, [facility] [address] [id number] [place] [address] Jun, [facility] [place] [facility] [address] [id number] [place] [address] Jun, [facility] [address] [id number] [place] [address] Apr, [facility] [place] [facility] [address] [id number] [place] [address] Apr, [facility] [address] [id number] [place] [address] Mar, [facility] [address] [id number] [place] [id number] Mar, [facility] [address] [id number] [place] [address] Mar, [facility] [place] [facility] [address] [id number] [place] [address] Mar, [facility] [place] [facility] [address] [id number] [place] [address] Feb, [facility] [place] [facility] [address] [id number] [place] [address] Feb, [facility] [place] [facility] [address] [id number] [place] [address] Jan, [facility] [place] [facility] [address] [id number] [place] [address] Jan, [facility] [place] [facility] [address] [id number] [place] [address] Jan, [facility] [place] [facility] [address] [id number] [place] [address] Jan, [facility] [place] [facility] [address] [id number] [place] [address] Jan, [facility] [place] [facility] [address] [facility] [id number], [place] [address] Jan, [facility] [address] [facility] [id number], [place] [address] Jan, [facility] [address] [facility] [id number], [place] [address] December, [facility] [address] [facility] [id number], [place] [address] December, [facility] [address] [facility] [id number], [place] [address] December, [facility] [address], [place] [address] December, [facility] [id number], [place] [address] Nov, [facility] [address], [place] [address] 14 Oct, 2011 [facility] [address], [place] [address] 14 Oct, 2011 [facility] [address], [place] [address] 16 Apr, 2011 [facility] [id number], [place] [address] 14 Nov, 2010 [facility] [id number], [place] [address] 15 Jun, 2010 [facility] [id number], [place] [address] 15 Jun, 2010 IMMUNIZATIONS No Known Immunizations SOCIAL HISTORY Never Assessed REASON FOR VISIT [place] [place] C[place] VITAL SIGNS MEDICATIONS Unknown Medications RESULTS No Results PROCEDURES No Known procedures INSTRUCTIONS MEDICATIONS ADMINISTERED No Known Medications
--- OUTSIDE RECORDS SUMMARY | 2019-03-03 11:26 | XMS REPORT ---
Author Author Migration, Doctor Organization [facility] Address Unknown Phone Unavailable Care Team Providers Care Organizational Psychologist Name Role Phone Migration, Doctor Unavailable Unavailable PROBLEMS Type Condition ICD9-CM Code CBV46-XK Code Onset Dates Condition Status SNOMED Code Problem Other fall E888.8 Active 6376769 Problem Abdominal pain, right upper quadrant 789.01 Active 798574195 Problem Nausea with vomiting 787.01 Active 38766879 Problem Major depressive disorder, recurrent episode, moderate F33.1 Active 62779894 Problem examination or test, positive result V72.42 Active 175157351 Problem Generalized anxiety disorder F41.1 Active 50395924 Problem Pain in joint, lower leg 719.46 Active 909348948 Problem Pilonidal cyst without mention of abscess 685.1 Active 31519730 Problem Restless legs syndrome [RLS] 333.94 Active 99390759 Problem Intestinal infection due to other organism, NEC 008.8 Active 42444001 ALLERGIES No Information ENCOUNTERS Encounter Location Date Diagnosis [facility] [address] [id number] [address] Jul, Major depressive disorder, recurrent episode, moderate F33.1 and Generalized anxiety disorder F41.[address] [id number] [id number] December, Dental examination V72.2 [facility] [address] [id number], [place] [address] Nov, [facility] [id number] [place] [address] Nov, [facility] [address] [id number], [place] [address] Jun, [facility] [address] [id number], [place] [address] Jun, [facility] [address] [id number] [place] [id number] Jun, [facility] [address] [id number] [place] [address] Jun, [facility] [place] [facility] [address] [id number] [place] [address] Jun, [facility] [address] [id number] [place] [address] Apr, [facility] [place] [facility] [address] [id number] [place] [address] Apr, [facility] [address] [id number] [place] [address] Mar, [facility] [address] [id number] [place] [id number] Mar, [facility] [address] [id number] [place] [address] Mar, [facility] [place] [facility] [address] [id number] [place] [address] Mar, [facility] [place] [facility] [address] [id number] [place] [address] Feb, [facility] [place] [facility] [address] [id number] [place] [address] Feb, [facility] [place] [facility] [address] [id number] [place] [address] Jan, [facility] [place] [facility] [address] [id number] [place] [address] Jan, [facility] [place] [facility] [address] [id number] [place] [address] Jan, [facility] [place] [facility] [address] [id number] [place] [address] Jan, [facility] [place] [facility] [address] [id number] [place] [address] Jan, [facility] [place] [facility] [address] [facility] [id number], [place] [address] Jan, [facility] [address] [facility] [id number], [place] [address] Jan, [facility] [address] [facility] [id number], [place] [address] December, [facility] [address] [facility] [id number], [place] [address] December, [facility] [address] [facility] [id number], [place] [address] December, [facility] [address], [place] [address] December, [facility] [address] [id number], [place] [address] Nov, [facility] [address]005[address], [place] [address] 14 Oct, 2011 [facility] [address]005[address], [place] [address] 14 Oct, 2011 [facility] [address]005[address], [place] [address] 16 Apr, 2011 [facility] [address] [id number], [place] [address] 14 Nov, 2010 [facility] [address] [id number] [address] 15 Jun, 2010 [facility] [address] [id number], [place] [address] 15 Jun, 2010 IMMUNIZATIONS No Known Immunizations SOCIAL HISTORY Never Assessed REASON FOR VISIT [facility] [place] PLAN OF CARE VITAL SIGNS MEDICATIONS Unknown Medications RESULTS No Results PROCEDURES No Known procedures INSTRUCTIONS MEDICATIONS ADMINISTERED No Known Medications
--- OUTSIDE RECORDS SUMMARY | 2019-03-03 11:26 | XMS REPORT ---
Author Author Migration, Doctor Organization [facility] Address Unknown Phone Unavailable Care Team Providers Care Third Steel Pourer Name Role Phone Migration, Doctor Unavailable Unavailable PROBLEMS Type Condition ICD9-CM Code CKV10-YU Code Onset Dates Condition Status SNOMED Code Problem Other fall E888.8 Active 0343363 Problem Abdominal pain, right upper quadrant 789.01 Active 717691372 Problem Nausea with vomiting 787.01 Active 43462222 Problem Major depressive disorder, recurrent episode, moderate F33.1 Active 60066472 Problem examination or test, positive result V72.42 Active 465629931 Problem Generalized anxiety disorder F41.1 Active 28450167 Problem Pain in joint, lower leg 719.46 Active 637270028 Problem Pilonidal cyst without mention of abscess 685.1 Active 07971865 Problem Restless legs syndrome [RLS] 333.94 Active 41812300 Problem Intestinal infection due to other organism, NEC 008.8 Active 46363035 ALLERGIES No Information ENCOUNTERS Encounter Location Date Diagnosis [facility] [id number], [place] [address] Jul, Major depressive disorder, recurrent episode, moderate F33.1 and Generalized anxiety disorder F41.[address] [id number] [address] December, Dental examination V72.2 [facility] [id number] [address] Nov, [facility] [id number] [place] [address] Nov, [facility] [id number] [address] Jun, [facility] [id number] [address] Jun, [facility] [address] [id number] [place] [id number] Jun, [facility] [address] [id number] [place] [address] Jun, [facility] [place] [facility] [address] [id number] [place] [address] Jun, [facility] [address] [id number] [place] [address] Apr, [facility] [place] [facility] [address] [id number] [place] [address] Apr, [facility] [address] [id number] [place] [address] Mar, [facility] [address] [id number] [place] [id number] Mar, [facility] [address] [id number] [place] [address] Mar, [facility] [place] [facility] [address] [id number] [place] [address] Mar, [facility] [place] [facility] [address] [id number] [place] [address] Feb, [facility] [place] [facility] [address] [id number] [place] [address] Feb, [facility] [place] [facility] [address] [id number] [place] [address] Jan, [facility] [place] [facility] [address] [id number] [place] [address] Jan, [facility] [place] [facility] [address] [id number] [place] [address] Jan, [facility] [place] [facility] [address] [id number] [place] [address] Jan, [facility] [place] [facility] [address] [id number] [place] [address] Jan, [facility] [place] [facility] [address] [facility] [id number], [place] [address] Jan, [facility] [address] [facility] [id number], [place] [address] Jan, [facility] [address] [facility] [id number], [place] [address] December, [facility] [address] [facility] [id number], [place] [address] December, [facility] [address] [facility] [id number], [place] [address] December, [facility] [address], [place] [address] December, [facility] [id number] [address] Nov, [facility] [address], [place] [address] 14 Oct, 2011 [facility] [address] [address] 14 Oct, 2011 [facility] [address] [address] 16 Apr, 2011 [facility] [id number] [address] 14 Nov, 2010 [facility] [id number] [address] 15 Jun, 2010 [facility] [id number] [address] 15 Jun, 2010 IMMUNIZATIONS No Known Immunizations SOCIAL HISTORY Never Assessed REASON FOR VISIT EMR-[facility] [place] PLAN OF CARE VITAL SIGNS MEDICATIONS Unknown Medications RESULTS No Results PROCEDURES No Known procedures INSTRUCTIONS MEDICATIONS ADMINISTERED No Known Medications
--- OUTSIDE RECORDS SUMMARY | 2019-03-03 11:26 | XMS REPORT ---
Author Author Migration, Doctor Organization [facility] Address Unknown Phone Unavailable Care Team Providers Care Rn Document Improvement Name Role Phone Migration, Doctor Unavailable Unavailable PROBLEMS Type Condition ICD9-CM Code TOG83-ND Code Onset Dates Condition Status SNOMED Code Problem Other fall E888.8 Active 1200265 Problem Abdominal pain, right upper quadrant 789.01 Active 841153242 Problem Nausea with vomiting 787.01 Active 06706839 Problem Major depressive disorder, recurrent episode, moderate F33.1 Active 26475410 Problem examination or test, positive result V72.42 Active 391164811 Problem Generalized anxiety disorder F41.1 Active 93418733 Problem Pain in joint, lower leg 719.46 Active 129942786 Problem Pilonidal cyst without mention of abscess 685.1 Active 88441732 Problem Restless legs syndrome [RLS] 333.94 Active 69409662 Problem Intestinal infection due to other organism, NEC 008.8 Active 39653541 ALLERGIES No Information ENCOUNTERS Encounter Location Date Diagnosis [facility] [address] [id number], [place] [address] Jul, Major depressive disorder, recurrent episode, moderate F33.1 and Generalized anxiety disorder F41.[address] [id number] [id number] December, Dental examination V72.2 [facility] [address] [id number], [place] [address] Nov, [facility] [id number] [place] [address] Nov, [facility] [address] [id number], [place] [address] Jun, [facility] [address] [id number], [place] [address] Jun, [facility] [address] [id number] [place] [id number] Jun, [facility] [address] [id number] [place] [address] Jun, [facility] [place] [facility] [address] [id number] [place] [address] Jun, [facility] [address] [id number] [place] [address] Apr, [facility] [place] [facility] [address] [id number] [place] [address] Apr, [facility] [address] [id number] [place] [address] Mar, [facility] [address] [id number] [place] [id number] Mar, [facility] [address] [id number] [place] [address] Mar, [facility] [place] [facility] [address] [id number] [place] [address] Mar, [facility] [place] [facility] [address] [id number] [place] [address] Feb, [facility] [place] [facility] [address] [id number] [place] [address] Feb, [facility] [place] [facility] [address] [id number] [place] [address] Jan, [facility] [place] [facility] [address] [id number] [place] [address] Jan, [facility] [place] [facility] [address] [id number] [place] [address] Jan, [facility] [place] [facility] [address] [id number] [place] [address] Jan, [facility] [place] [facility] [address] [id number] [place] [address] Jan, [facility] [place] [facility] [address] [facility] [id number], [place] [address] Jan, [facility] [address] [facility] [id number], [place] [address] Jan, [facility] [address] [facility] [id number], [place] [address] December, [facility] [address] [facility] [id number], [place] [address] December, [facility] [address] [facility] [id number], [place] [address] December, [facility] [address], [place] [address] December, [facility] [id number], [place] [address] Nov, [facility] [address], [place] [address] 14 Oct, 2011 [facility] [address]005[address], [place] [address] 14 Oct, 2011 [facility] [address]005[address], [place] [address] 16 Apr, 2011 [facility] [address] [id number], [place] [address] 14 Nov, 2010 [facility] [id number], [place] [address] 15 Jun, 2010 [facility] [address] [id number], [place] [address] 15 Jun, 2010 IMMUNIZATIONS No Known Immunizations SOCIAL HISTORY Never Assessed REASON FOR VISIT EMR-[facility] [place] PLAN OF CARE VITAL SIGNS MEDICATIONS Unknown Medications RESULTS No Results PROCEDURES No Known procedures INSTRUCTIONS MEDICATIONS ADMINISTERED No Known Medications
--- OUTSIDE RECORDS SUMMARY | 2019-03-03 11:27 | XMS REPORT ---
Author Author Migration, Doctor Organization [facility] Address Unknown Phone Unavailable Care Team Providers Care Clinical Program Coordinator Name Role Phone Migration, Doctor Unavailable Unavailable PROBLEMS Type Condition ICD9-CM Code [id number] Code Onset Dates Condition Status SNOMED Code Problem Other fall E888.8 Active 7743750 Problem Abdominal pain, right upper quadrant 789.01 Active 968927716 Problem Nausea with vomiting 787.01 Active 80740263 Problem Major depressive disorder, recurrent episode, moderate F33.1 Active 78345344 Problem examination or test, positive result V72.42 Active 819525280 Problem Generalized anxiety disorder F41.1 Active 05369621 Problem Pain in joint, lower leg 719.46 Active 169455393 Problem Pilonidal cyst without mention of abscess 685.1 Active 15257647 Problem Restless legs syndrome [RLS] 333.94 Active 29774529 Problem Intestinal infection due to other organism, NEC 008.8 Active 28240201 ALLERGIES No Information ENCOUNTERS Encounter Location Date Diagnosis [facility] [id number] [address] Jul, Major depressive disorder, recurrent episode, moderate F33.1 and Generalized anxiety disorder F41.[address] [id number] [id number] December, Dental examination V72.2 [facility] [id number] [address] Nov, [facility] [id number] [place] [address] Nov, [facility] [address] [id number] [address] Jun, [facility] [address] [id number] [address] Jun, [facility] [address] [id number] [place] [id number] Jun, [facility] [address] [id number] [place] [address] Jun, [facility] [place] [facility] [address] [id number] [place] [address] Jun, [facility] [address] [id number] [place] [address] Apr, [facility] [place] [facility] [address] [id number] [place] [address] Apr, [facility] [address] [id number] [place] [address] Mar, [facility] [address] [id number] [place] [id number] Mar, [facility] [address] [id number] [place] [address] Mar, [facility] [place] [facility] [address] [id number] [place] [address] Mar, [facility] [place] [facility] [address] [id number] [place] [address] Feb, [facility] [place] [facility] [address] [id number] [place] [address] Feb, [facility] [place] [facility] [address] [id number] [place] [address] Jan, [facility] [place] [facility] [address] [id number] [place] [address] Jan, [facility] [place] [facility] [address] [id number] [place] [address] Jan, [facility] [place] [facility] [address] [id number] [place] [address] Jan, [facility] [place] [facility] [address] [id number] [place] [address] Jan, [facility] [place] [facility] [address] [facility] [id number] [address] Jan, [facility] [address] [facility] [id number] [address] Jan, [facility] [address] [facility] [id number] [address] December, [facility] [address] [facility] [id number] [address] December, [facility] [address] [facility] [id number] [address] December, [facility] [address] [address] December, [facility] [address] [id number] [address] Nov, [facility] [address] [address] 14 Oct, [address] [facility] [address] [address] 14 Oct, 2011 [facility] [address] [address] 16 Apr, [address] [facility] [id number] [address] 14 Nov, 2010 [facility] [id number] [address] 15 Jun, 2010 [facility] [id number] [address] 15 Jun, 2010 IMMUNIZATIONS No Known Immunizations SOCIAL HISTORY Never Assessed REASON FOR VISIT EMR[place] [place] CARE VITAL SIGNS MEDICATIONS Unknown Medications RESULTS No Results PROCEDURES No Known procedures INSTRUCTIONS MEDICATIONS ADMINISTERED No Known Medications
--- OUTSIDE RECORDS SUMMARY | 2019-03-03 11:27 | XMS REPORT ---
Author Author Migration, Doctor Organization [facility] Address Unknown Phone Unavailable Care Team Providers Care Silk Screen Printer Helper Name Role Phone Migration, Doctor Unavailable Unavailable PROBLEMS Type Condition ICD9-CM Code LID58-FY Code Onset Dates Condition Status SNOMED Code Problem Other fall E888.8 Active 1975490 Problem Abdominal pain, right upper quadrant 789.01 Active 283939155 Problem Nausea with vomiting 787.01 Active 18088227 Problem Major depressive disorder, recurrent episode, moderate F33.1 Active 45228011 Problem examination or test, positive result V72.42 Active 358100984 Problem Generalized anxiety disorder F41.1 Active 34896784 Problem Pain in joint, lower leg 719.46 Active 906999997 Problem Pilonidal cyst without mention of abscess 685.1 Active 81768881 Problem Restless legs syndrome [RLS] 333.94 Active 99980718 Problem Intestinal infection due to other organism, NEC 008.8 Active 51401249 ALLERGIES No Information ENCOUNTERS Encounter Location Date Diagnosis [facility] [id number] [address] Jul, Major depressive disorder, recurrent episode, moderate F33.1 and Generalized anxiety disorder F41.[address] [id number] [id number] December, Dental examination V72.2 [facility] [id number] [address] Nov, [facility] [id number] [place] [address] Nov, [facility] [id number] [address] Jun, [facility] [id number] [address] Jun, [facility] [address] [id number] [place] [id number] Jun, [facility] [address] [id number] [place] [address] Jun, [facility] [place] [facility] [address] [id number] [place] [address] Jun, [facility] [address] [id number] [place] [address] Apr, [facility] [place] [facility] [address] [id number] [place] [address] Apr, [facility] [address] [id number] [place] [address] Mar, [facility] [address] [id number] [place] [id number] Mar, [facility] [address] [id number] [place] [address] Mar, [facility] [place] [facility] [address] [id number] [place] [address] Mar, [facility] [place] [facility] [address] [id number] [place] [address] Feb, [facility] [place] [facility] [address] [id number] [place] [address] Feb, [facility] [place] [facility] [address] [id number] [place] [address] Jan, [facility] [place] [facility] [address] [id number] [place] [address] Jan, [facility] [place] [facility] [address] [id number] [place] [address] Jan, [facility] [place] [facility] [address] [id number] [place] [address] Jan, [facility] [place] [facility] [address] [id number] [place] [address] Jan, [facility] [place] [facility] [address] [facility] [id number] [address] Jan, [facility] [id number] [address] Jan, [facility] [address] [facility] [id number] [address] December, [facility] [address] [facility] [id number] [place] [address] December, [facility] [address] [facility] [id number] [place] [address] December, [facility] [address] [address] December, [facility] [id number] [address] Nov, [facility] [address] [address] Oct, [facility] [address] [address] Oct, [facility] [address] [address] Apr, [facility] [id number] [address] Nov, [facility] [id number] [address] Jun, [facility] [id number] [address] Jun, IMMUNIZATIONS No Known Immunizations SOCIAL HISTORY Never Assessed REASON FOR VISIT [place] [place] C[place] VITAL SIGNS MEDICATIONS Medication Instructions Dosage Frequency Start Date End Date Duration Status Naproxen 500 mg take 1 tablet (500 mg) by oral route 2 times per day with food Jun, Active RESULTS No Results PROCEDURES No Known procedures INSTRUCTIONS MEDICATIONS ADMINISTERED No Known Medications
--- OUTSIDE RECORDS SUMMARY | 2019-03-03 11:29 | XMS REPORT | Continuity of Care Document ---
Author Organization Unknown Address Unknown Allergies Active Description Code Type Severity Reaction Onset Reported/Identified Relationship to Patient Clinical Status Yes No Known Drug Allergies [id number] Drug Allergy Unknown N/A 02/28/2019 Medications There is no data. Problems Date [...] APRN 251.1 HYPERINSULINISM 03/03/2010 ERICA DIANE APRN 626.4 IRREGULAR MENSTRUAL CYCLE 07/14/2010 RADHA LYNN [...] MURRY DO 008.8 GASTROENTERITIS, VIRAL 01/15/2012 ERICA IDANE APRN 008.8 GASTROENTERITIS, VIRAL 01/16/2012 Ot 462 [...] TEST POSITIVE RESULT 08/26/2012 Ot 648.73 BONE DISORDER- ANTEPARTUM 08/26/2012 Ot 724.2 LUMBAGO 10/11/2012 Ot 644.03 THRT ADITHYA LABOR- ANTEPART 10/27/2012 Ot 493.90 ASTHMA, UNSPECIFIED 10/27/2012 Ot 648.92 OTH CURR COND- DEL W P/P 10/27/2012 Ot 649.01 TOBACCO USE DISORDER COMP PREG/CHILDBIRT 10/27/2012 Ot 663.31 CORD ENTANGLE NEC-DELIV 10/27/2012 Ot V06.1 [id number], COMBINED [ 10/27/2012 Ot V06.4 [id number] 10/27/2012 Ot V27.0 DELIVER-SINGLE LIVEBORN 01/18/2013 TERRANCE [...] Ot 789.00 ABDOMINAL PAIN, UNSPECIFIED SITE 09/16/2013 SZUIE ARIZMENDI MD Ot 644.03 THRT ADITHYA LABOR-ANTEPART [...] Ot 599.0 URIN TRACT INFECTION NOS 04/17/2015 KYLEIGH CURRY, SUZIE Messina Ot 646.63 INFECTION-ANTEPARTUM 2015 SUZIE ARIZMENDI MD Ot 642.33 TRANS HYPERTEN-ANTEPART 05/01/2015 Ot 787.01 05/01/2015 Ot 789.00 05/01/2015 Ot 649.63 05/01/2015 Ot 649.63 05/01/2015 SUZIE ARIZMENDI MD Ot 649.63 05/01/2015 SUZIE ARIZMENDI MD Ot 649.63 05/01/2015 SUZIE ARIZMENDI MD, Ot V28.81 05/01/2015 SUZIE ARIZMEDNI MD Ot V22.1 05/01/2015 SUZIE ARIZMENDI MD, Ot V28.89 05/02/2015 SUZIE ARIZMENDI MD Ot 642.31 TRANS HYPERTEN-DELIVERED 05/02/2015 SUZIE ARIZMENDI MD Ot V06.1 [id number], COMBINED [ 05/02/2015 SUZIE ARIZMENDI MD Ot [...] 06/12/2016 SUZIE ARIZMENDI MD, Ot V22.1 SUPERVIS OTH NORMAL PREG 06/12/2016 SUZIE ARIZMENDI MD Ot V28.89 OTHER SPECIFIED SCREENING 06/13/2016 CARY CURRY, LELAND Khan Ot F17.210 NICOTINE DEPENDENCE, CIGARETTES, UNCOMPL 06/13/2016 [...] Ot R10.2 PELVIC AND PERINEAL PAIN 12/02/2016 SAMANTHA MOORE DO Ot R10.811 RIGHT UPPER [...] UTERINE SIZE DATE DISCREPANCY, ANTEPARTU 06/13/2017 KYLEIGH SUZIE CURRY Ot V28.81 ENCOUNTER FOR ANATOMIC SURVEY 06/13/2017 SUZIE ARIZMENDI MD Ot V22.1 SUPERVIS OTH NORMAL PREG 06/13/2017 SUZIE ARIZMENDI MD Ot V28.89 OTHER SPECIFIED SCREENING 06/13/2017 SUZIE ARIZMENDI MD Ot R10.2 PELVIC AND PERINEAL PAIN 06/13/2017 FENSHEYLA MORROW, SAMANTHA Moses Ot R10.811 RIGHT UPPER QUADRANT [...] R19.09 OTHER INTRA-ABDOMINAL AND PELVIC SWELLIN 09/01/2017 SUZIE ARIZMENDI MD Ot R19.09 OTHER INTRA-ABDOMINAL AND PELVIC SWELLIN 08/21/2018 TAL LINDSEY MD Ot F17.210 NICOTINE DEPENDENCE, CIGARETTES, UNCOMPL 08/21/2018 TAL LINDSEY MD Ot G25.81 RESTLESS LEGS SYNDROME 08/21/2018 TAL LINDSEY MD Ot I10 ESSENTIAL (PRIMARY) HYPERTENSION 08/21/2018 TAL LINDSEY MD Ot N39.0 URINARY TRACT INFECTION, SITE NOT SPECIF 08/21/2018 TAL LINDSEY MD Ot N94.819 VULVODYNIA, UNSPECIFIED 08/21/2018 TAL LINDSEY MD Ot R10.9 UNSPECIFIED ABDOMINAL PAIN 08/21/2018 TAL LINDSEY MD Ot Z82.49 FAMILY HX OF ISCHEM HEART DIS AND OTH DI 08/21/2018 TAL LINDSEY MD Ot Z87.448 PERSONAL HISTORY OF OTHER DISEASES OF UR 08/21/2018 TAL LINDSEY MD Ot Z98.51 TUBAL LIGATION STATUS 08/21/2018 SUZIE ARIZMENDI MD Ot 649.63 UTERINE SIZE DATE DISCREPANCY, ANTEPARTU 08/21/2018 SUZIE ARIZMENDI MD Ot 649.63 UTERINE SIZE DATE DISCREPANCY, ANTEPARTU 08/21/2018 SUZIE ARIZMENDI MD Ot V28.81 ENCOUNTER FOR ANATOMIC SURVEY 08/21/2018 SUZIE ARIZMENDI MD Ot V22.1 SUPERVIS OTH NORMAL PREG 08/21/2018 SUZIE ARIZMENDI MD Ot V28.89 OTHER SPECIFIED SCREENING 08/21/2018 SUZIE ARIZMENDI MD Ot R10.2 PELVIC AND PERINEAL PAIN 08/21/2018 FENSAMANTHA CARRION DO S Ot R10.811 RIGHT UPPER QUADRANT ABDOMINAL TENDERNES 08/21/2018 TERRY RODRIGUEZ DO Ot K80.20 CALCULUS OF GALLBLADDER W/O CHOLECYSTITI 08/21/2018 TERRY RODRIGUEZ DO Ot Z01.818 ENCOUNTER FOR OTHER PREPROCEDURAL EXAMIN 08/21/2018 TERRY RODRIGUEZ DO Ot L02.01 CUTANEOUS ABSCESS OF FACE 08/21/2018 SUZIE ARIZMENDI MD Ot R19.09 OTHER INTRA-ABDOMINAL AND PELVIC SWELLIN 08/25/2018 TAL LINDSEY MD Ot F17.210 NICOTINE DEPENDENCE, CIGARETTES, UNCOMPL 08/25/2018 TAL LINDSEY MD Ot G25.81 RESTLESS LEGS SYNDROME 08/25/2018 TAL LINDSEY MD Ot I10 ESSENTIAL (PRIMARY) HYPERTENSION 08/25/2018 TAL LINDSEY MD Ot N39.0 URINARY TRACT INFECTION, SITE NOT SPECIF 08/25/2018 TAL LINDSEY MD Ot N94.819 VULVODYNIA, UNSPECIFIED 08/25/2018 TAL LINDSEY MD Ot R10.9 UNSPECIFIED ABDOMINAL PAIN 08/25/2018 TAL LINDSEY MD Ot Z82.49 FAMILY HX OF ISCHEM HEART DIS AND OTH DI 08/25/2018 TAL LINDSEY MD Ot Z87.448 PERSONAL HISTORY OF OTHER DISEASES OF UR 08/25/2018 TAL LINDSEY MD Ot Z98.51 TUBAL LIGATION STATUS 12/12/2018 SUZIE ARIZMENDI MD Ot V22.1 SUPERVIS OTH NORMAL PREG 12/12/2018 SUZIE ARIZMENDI MD Ot V28.89 OTHER SPECIFIED SCREENING 12/12/2018 SUZIE ARIZMENDI MD Ot R10.2 PELVIC AND PERINEAL PAIN 12/12/2018 FENECH DO, SAMANTHA S Ot R10.811 RIGHT UPPER QUADRANT ABDOMINAL TENDERNES 12/12/2018 TERRY RODRIGUEZ DO Ot K80.20 CALCULUS OF GALLBLADDER W/O CHOLECYSTITI 12/12/2018 TERRY RODRIGUEZ DO Ot Z01.818 ENCOUNTER FOR OTHER PREPROCEDURAL EXAMIN 12/12/2018 TERRY RODRIGUEZ DO Ot L02.01 CUTANEOUS ABSCESS OF FACE 12/12/2018 SUZIE ARIZMENDI MD Ot R19.09 OTHER INTRA-ABDOMINAL AND PELVIC SWELLIN 12/14/2018 SUZIE ARIZMENDI MD Ot R07.9 CHEST PAIN, UNSPECIFIED 01/06/2019 SUZIE ARIZMENDI MD Ot V22.1 SUPERVIS OTH NORMAL PREG 01/06/2019 SUZIE ARIZMENDI MD Ot V28.89 OTHER SPECIFIED SCREENING 01/06/2019 SUZIE ARIZMENDI MD Ot R10.2 PELVIC AND PERINEAL PAIN 01/06/2019 TERESA MORROW SAMANTHA S Ot R10.811 RIGHT UPPER QUADRANT ABDOMINAL TENDERNES 01/06/2019 TERRY RODRIGUEZ DO Ot K80.20 CALCULUS OF GALLBLADDER W/O CHOLECYSTITI 01/06/2019 TERRY RODRIGUEZ DO Ot Z01.818 ENCOUNTER FOR OTHER PREPROCEDURAL EXAMIN 01/06/2019 TERRY RODRIGUEZ DO Ot L02.01 CUTANEOUS ABSCESS OF FACE 01/06/2019 SUZIE ARIZMENDI MD Ot R19.09 OTHER INTRA-ABDOMINAL AND PELVIC SWELLIN 01/06/2019 SUZIE ARIZMENDI MD Ot R07.9 CHEST PAIN, UNSPECIFIED 01/06/2019 SUZIE ARIZMENDI MD Ot V22.1 SUPERVIS OTH NORMAL PREG 01/06/2019 SUZIE ARIZMENDI MD Ot V28.89 OTHER SPECIFIED SCREENING 01/06/2019 SUZIE ARIZMENDI MD Ot R10.2 PELVIC AND PERINEAL PAIN 01/06/2019 SAMANTHA MOORE DO Ot R10.811 RIGHT UPPER QUADRANT ABDOMINAL TENDERNES 01/06/2019 TERRY RODRIGUEZ DO Ot K80.20 CALCULUS OF GALLBLADDER W/O CHOLECYSTITI 01/06/2019 TERRY RODRIGUEZ DO Ot Z01.818 ENCOUNTER FOR OTHER PREPROCEDURAL EXAMIN 01/06/2019 TERRY RODRIGUEZ DO Ot L02.01 CUTANEOUS ABSCESS OF FACE 01/06/2019 SUZIE ARIZMENDI MD Ot R19.09 OTHER INTRA-ABDOMINAL AND PELVIC SWELLIN 01/06/2019 SUZIE ARIZMENDI MD Ot R07.9 CHEST PAIN, UNSPECIFIED 02/24/2019 TERRY RODRIGUEZ DO Ot Z01.818 ENCOUNTER FOR OTHER PREPROCEDURAL EXAMIN 02/28/2019 TERRY RODRIGUEZ DO Ot Z01.818 ENCOUNTER FOR OTHER PREPROCEDURAL EXAMIN 02/28/2019 TERRY RODRIGUEZ DO Ot Z01.818 ENCOUNTER FOR OTHER PREPROCEDURAL EXAMIN Procedures Code Description Performed By Performed On 96.49 OTHER INSTILLATION 10/24/2012 73.6 EPISIOTOMY 10/25/2012 96.49 OTHER INSTILLATION 10/05/2013 73.6 EPISIOTOMY 10/06/2013 46902 XRAY KNEE LEFT 3 VIEWS 07/04/2014 96.49 OTHER INSTILLATION 04/29/2015 73.6 EPISIOTOMY 04/30/2015 Results Test Result Range Methicillin resistant Staphylococcus aureus (MRSA) screening culture - 11/16/16 10:30 Methicillin resistant Staphylococcus aureus (MRSA) screening [...] Automated erythrocyte mean corpuscular hemoglobin concentration measurement (mass/volume) 33 g/dL 32-36 Automated erythrocyte distribution width ratio 14.5 % 10.0- 14.5 Automated blood platelet count (count/volume) 350 10*3/uL [...] Blood monocytes automated count (number/volume) 0.4 10*3 0.0- 1.0 Automated eosinophil count 0.1 10*3/uL 0.0-0.3 Automated [...] ABO+Rh group OP NRG Transfusion band number [id number] NRG Blood group antibody screen NEGATIVE NRG Urine beta human chorionic gonadotropin (hCG) measurement - 12/03/16 11:24 Urine beta human chorionic gonadotropin (hCG) measurement NEGATIVE NEGATIVE Gram stain microscopy - 06/14/17 00:00 GRAM STAIN RESULT NO WBC'S OR BACTERIA OBSERVED NRG Bacteria identification in wound by culture - 06/14/17 00:00 Bacteria identification in wound by culture [id number] NR FREE TEXT EXTERNAL SENSITIVITY REPORTED 06/16 15:35 NRG QUANTITY OF GROWTH Moderate Growth NRG MRSA AGAR MRSA isolated (Screening test for MRSA is positive) NR Bacterial susceptibility panel - 06/14/17 00:00 Oxacillin susceptibility test by minimum inhibitory concentration >= NRG Gentamicin susceptibility test by minimum inhibitory concentration <= NRG Clindamycin susceptibility test by minimum inhibitory concentration <= NRG Erythromycin susceptibility test by minimum inhibitory concentration >= NRG Trimethoprim/sulfamethoxazole susceptibility test by minimum inhibitoryconcentration <= NRG Vancomycin susceptibility test by minimum inhibitory concentration 1 NRG Levofloxacin susceptibility test by minimum inhibitory concentration 0.5 NRG Rifampin susceptibility test by minimum inhibitory concentration <= NRG Tetracycline susceptibility test by minimum inhibitory concentration <= NRG Complete urinalysis with reflex to culture - 08/21/18 17:56 Urine color determination YELLOW NRG Urine clarity determination CLEAR NRG Urine pH measurement by test strip 7 5-9 Specific gravity of urine by test strip 1.005 1.016-1.022 Urine protein assay by test strip, semi-quantitative NEGATIVE NEGATIVE Urine glucose detection by automated test strip NEGATIVE NEGATIVE Erythrocytes detection in urine sediment by light microscopy NEGATIVE NEGATIVE Urine ketones detection by automated test strip NEGATIVE NEGATIVE Urine nitrite detection by test strip NEGATIVE NEGATIVE Urine total bilirubin detection by test strip NEGATIVE NEGATIVE Urine urobilinogen measurement by automated test strip (mass/volume) NORMAL NORMAL Urine leukocyte esterase detection by dipstick 3+ NEGATIVE Automated urine sediment erythrocyte count by microscopy (number/high power field) NONE NRG Automated urine sediment leukocyte count by microscopy (number/high power field) [HPF] NRG Bacteria detection in urine sediment by light microscopy TRACE NRG Squamous epithelial cells detection in urine sediment by light microscopy 10-20 NRG Crystals detection in urine sediment by light microscopy NONE NRG Casts detection in urine sediment by light microscopy NONE NRG Mucus detection in urine sediment by light microscopy NEGATIVE NRG Complete urinalysis with reflex to culture YES NRG Urine beta human chorionic gonadotropin (hCG) measurement - 08/21/18 17:56 Urine beta human chorionic gonadotropin (hCG) measurement NEGATIVE NEGATIVE Bacterial urine culture - 08/21/18 17:56 Bacterial urine culture SEE REPORT NRG COLONY COUNT . NRG Microscopic examination by wet preparation - 08/21/18 18:15 WET PREP RESULTS AT 1900 BY PK/KD NRG Chlamydia trachomatis DNA detection by probe and signal amplification method - 08/21/18 18:15 Chlamydia trachomatis DNA detection by probe and target amplification method Not Detected Not Detected Neisseria gonorrhoeae DNA detection by probe and signal amplification method - 08/21/18 18:15 Gonorrhea amp DNA-urine Not Detected Not Detected Encounters ACCT No. Visit Date/Time Discharge Status Pt. Type Provider Facility Loc./Unit Complaint [id number] 07/04/2014 14:21:00 07/04/2014 23:59:59 CLS Outpatient ERICA DIANE APRN [id number] 07/04/2014 10:30:00 07/04/2014 23:59:59 CLS Outpatient ADÁN MURRY DO [id number] 04/27/2014 08:56:00 04/27/2014 23:59:59 CLS Outpatient RADHA LYNN APRN [id number] 02/28/2019 12:30:00 02/28/2019 12:56:00 DIS Outpatient TERRY RODRIGUEZ DO [facility] PREOP LEFT BREAST CYST [id number] 01/06/2019 11:02:00 01/06/2019 23:59:59 CLS Outpatient TERRY RODRIGUEZ DO [facility] RAD NEW POSSIBLE ABSCESS [id number] 12/12/2018 16:12:00 12/12/2018 23:59:59 CLS Outpatient SUZIE ARIZMENDI MD [facility] CARD CHEST PAIN [id number] 08/21/2018 17:04:00 08/21/2018 20:20:00 DIS Emergency TAL LINDSEY MD [facility] ER ABD PAIN [id number] 08/16/2017 13:20:00 08/16/2017 23:59:59 CLS Outpatient SUZIE ARIZMENDI MD [facility] RAD PELVIC PAIN [id number] 06/15/2017 11:45:00 06/15/2017 23:59:59 CLS Outpatient TERRY RODRIGUEZ DO [facility] LABNPT [id number] 06/13/2017 11:43:00 06/13/2017 12:08:00 DIS Emergency ALBAN CRAWFORD RIVKA [facility] ER FACIAL SWELLING/PAIN [id number] 12/03/2016 11:30:00 12/03/2016 17:05:00 DIS Outpatient TERRY RODRIGUEZ DO [facility] SDC STONES [id number] 12/02/2016 14:56:00 12/02/2016 23:59:59 CLS Outpatient TERRY RODRIGUEZ DO [facility] PREOP GALLSTONES [id number] 12/01/2016 11:49:00 12/01/2016 23:59:59 CLS Outpatient TERESA MORORW SAMANTHA S [facility] RAD RUQ PAIN [id number] 11/19/2016 08:07:00 11/19/2016 12:30:00 DIS Outpatient SAMANTHA MOORE DO S [facility] SDC LEFT PELVIC PAIN [id number] 11/16/2016 10:15:00 11/16/2016 13:05:00 DIS Outpatient TERESA MORROW SAMANTHA S [facility] PREOP LEFT PELVIC PAIN [id number] 10/09/2016 10:04:00 10/09/2016 23:59:59 CLS Outpatient SUZIE ARIZMENDI MD [facility] RAD PELVIC PAIN [id number] 06/12/2016 23:54:00 06/13/2016 00:15:00 DIS Emergency LELAND TOWNSEND MD [facility] ER LEFT KNEE PAIN,SWOLLEN [id number] 04/29/2015 19:11:00 05/02/2015 11:45:00 DIS Inpatient SUZIE ARIZMENDI MD [facility] LDRP INDUCTION [id number] 2015 18:41:00 2015 19:10:00 DIS Outpatient SUZIE ARIZMENDI MD [facility] WSo POSS ELEVATED BP [id number] 04/17/2015 06:58:00 04/17/2015 09:00:00 DIS Outpatient [facility] [id number] 02/24/2015 20:27:00 02/24/2015 21:35:00 DIS Outpatient SUZIE ARIZMENDI MD [facility] WSo TIGHTENING GASTRIC PAIN [id number] 02/14/2015 06:31:00 02/14/2015 08:46:00 DIS Outpatient SUZIE ARIZMENDI MD [facility] WSo ABD PAIN [id number] 12/20/2014 13:35:00 12/20/2014 23:59:59 CLS Outpatient SUZIE ARIZMENDI MD [facility] RAD SURVEY [id number] 09/28/2014 13:25:00 09/28/2014 23:59:59 CLS Outpatient SUZIE ARIZMENDI MD [facility] RAD DATING [id number] 10/12/2013 11:48:00 10/12/2013 14:50:00 DIS Emergency JERROD RUBI MD [facility] ER POST BLEEDING [id number] 10/05/2013 18:55:00 10/08/2013 09:55:00 DIS Inpatient SUZIE ARIZMENDI MD [facility] WS INDUCTION [id number] 09/16/2013 16:05:00 09/16/2013 18:07:00 DIS Outpatient SUZIE ARIZMENDI MD [facility] WSo CONTRACTIONS [id number] 08/26/2013 20:20:00 08/26/2013 22:50:00 DIS Outpatient SUZIE ARIZMENDI MD [facility] WSo ABD PAIN [id number] 05/24/2013 09:45:00 05/24/2013 23:59:59 CLS Outpatient SUZIE ARIZMENDI MD [facility] RAD FUNDAL HEIGHT DISCREPENCY [id number] 03/09/2013 09:55:00 03/09/2013 23:59:59 CLS Outpatient KYLEIGH CURRY, SUZIE Messina [facility] RAD SIZE DATE DIS [id number] 01/18/2013 19:29:00 01/18/2013 23:44:00 DIS Emergency TERRANCE CURRY, ESE Greene [facility] ER CHEST CONGESTION [id number] 03/03/2019 11:40:00 PEN Preadmit TERRY RODRIGUEZ DO [facility] SDC LEFT BREAST CYST [id number] 10/24/2012 19:00:00 Document Registration [id number] 10/11/2012 02:43:00 Document Registration [id number] 08/26/2012 20:23:00 Document Registration [id number] 06/21/2012 15:09:00 Document Registration [id number] 03/30/2012 09:39:00 Document Registration [id number] 01/26/2012 08:27:00 Document Registration [id number] 01/16/2012 20:13:00 Document Registration [id number] 10/31/2011 22:12:00 Document Registration [id number] 08/02/2011 21:27:00 Document Registration [id number] 03/01/2011 20:03:00 Document Registration
[2019-03-03] MEDS ORDERED: LACTATED RINGERS 1,000 ML IV PRN (11:44)
[2019-03-03] MEDS ORDERED: ceFAZolin INJECTION 1,000 MG in WATER (STERILE) FOR INJECTION 10 ML IV ONE (11:45)
[2019-03-03] MEDS ORDERED: TRAZ-222 PO (12:12)
[2019-03-03] MEDS ORDERED: BUP/EPI 0.5% 1:200,000 (SENSORCAINE) 30 ML VIAL ONE (12:21)
[2019-03-03] MEDS ORDERED: ONDANSETRON 4 MG/2 ML (SDV) Z0FRAN ONE (13:00)
[2019-03-03] MEDS ORDERED: LIDOCAINE PF 2% 5 ML (XYLOCAINE) VIAL ONE (13:00)
[2019-03-03] MEDS ORDERED: proPOfol 200 MG/20 ML (DIPRIVAN) VIAL IV ONE (13:00)
[2019-03-03] MEDS ORDERED: DEXAMETHASONE 10 MG/ML (DECADRON) 1 ML VIAL ONE (13:00)
[2019-03-03] MEDS ORDERED: fentaNYL INJECTION 100 MCG/2 ML AMP ONE (13:01)
[2019-03-03] MEDS ORDERED: MIDAZOLAM 2 MG/2 ML (VERSED) VIAL ONE (13:01)
--- NOTE | 2019-03-03 13:07 | Progress Note-Pre Operative ---
Pre-Operative Progress Note H&P Reviewed The H&P was reviewed, patient examined and no changes noted. Date Seen by Provider: Mar 03, 2019 Time Seen by Provider: 13:07 Date H&P Reviewed: Mar 03, 2019 Time H&P Reviewed: 13:07 Pre-Operative Diagnosis: left breast cyst TERRY RODRIGUEZ DO Mar 03, 2019 13:07
--- NOTE | 2019-03-03 13:54 | Progress Note-Post Operative ---
Post-Operative Progess Note Surgeon (s)/Healthcare Project Manager (s) Surgeon TERRY RODRIGUEZ DO Healthcare Project Manager: na Pre-Operative Diagnosis left breast cyst Post-Operative Diagnosis same Procedure & Operative Findings Date of Procedure 03/03/19 Procedure Performed/Findings excision left breast cyst Anesthesia Type gen Estimated Blood Loss Estimated blood loss (mL): min Specimens/Packing Specimens Removed left breast cyst TERRY RODRIGUEZ DO Mar 03, 2019 13:54
[2019-03-03] MEDS ORDERED: ACHD5005 PO (13:56)
--- NOTE | 2019-03-03 13:59 | Discharge Inst-Simple/Standard ---
Discharge Inst-Standard Discharge Medications New, Converted or Re-Newed RX: RX on Chart Patient Instructions/Follow Up Plan of Care/Instructions/FU: 2 weeks Eugenio Activity as Tolerated: Yes Discharge Diet: Regular Diet Other Inst to Patient Follow up Appt: Make appointment for 2 week. Instructions: No lifting greater than 10 pounds. No strenuous activity. May shower in 24 hours, no tub bath or soaking. Use incentive spirometer at home as directed. No Smoking Skin/Wound Care: You have special glue over incisions it will fall off on its own. Symptoms to Report: Appetite Changes, Extremity Discoloration, Numbness/Tingling, Swelling Increased, Bleeding Excessive, Eyesight Changes, Pain Increased, Urine Color Change, Constipation(Persistent), Fever over 101 degree F, Pain/Pressure in ches t, Urinating Difficulty, Cough Up/Vomit Blood, Heart Beat Irreg/Pounding, Pain/Pressure in jaw, Vaginal Bleeding Increase, Cramps in feet or legs, Lightheadedness, Pain/Pressure in shoulder, Diarrhea(Persistent), Memory Changes Suddenly, Questions/Concerns, Weight gain consecutive days, Dizziness/Fainting, Nausea/Vomiting, Shortness of Breath, Weight gain over 2 pounds If questions or concerns contact your physician Or seek help at emergency department. TERRY RODRIGUEZ DO Mar 03, 2019 13:59
[2019-03-03] MEDS ORDERED: MEPERIDINE (DEMEROL) INJ 50 MG/ML IVP ONE (14:00)
[2019-03-03] MEDS ORDERED: ONDANSETRON 4 MG/2 ML (SDV) Z0FRAN IVP PRN (14:00)
[2019-03-03] MEDS ORDERED: morphine INJ 10 MG/ML 1ML (SYR OR VIAL) IVP ONE (14:00)
[2019-03-03] MEDS ORDERED: fentaNYL INJECTION 100 MCG/2 ML AMP IVP ONE (14:00)
--- NOTE | 2019-03-03 14:34 | Anesthesia-General Post-Op ---
General Patient Condition Mental Status/LOC: Same as Preop Cardiovascular: Satisfactory Nausea/Vomiting: Absent Respiratory: Satisfactory Pain: Controlled Complications: Absent Post Op Complications Complications None Follow Up Care/Instructions Patient Instructions None needed. Anesthesia/Patient Condition Patient Condition Patient is doing well, no complaints, stable vital signs, no apparent adverse anesthesia problems. No complications reported per nursing. LIANG JORGENSEN CRNA Mar 03, 2019 14:34
[2019-03-03] MEDS ORDERED: HYDROcodone/APAP 5 MG/325 MG (LORTAB) TAB PO ONE (15:15)
--- NOTE | 2019-03-04 23:27 | OPERATIVE REPORT ---
DATE OF SERVICE: 03/03/2019 PREOPERATIVE DIAGNOSIS: Cyst, left breast. POSTOPERATIVE DIAGNOSIS: Cyst, left breast. PROCEDURE: Excision of left breast cyst. SURGEON: Terry Becker DO ANESTHESIA: General. ESTIMATED BLOOD LOSS: Minimal. COMPLICATIONS: None. INDICATIONS: The patient is a 28-year-old female with a left breast cyst. She understands risks and benefits of excision. Consent was signed on the chart. DESCRIPTION OF THE PROCEDURE: The patient was taken to the operating suite. She was prepped and draped in sterile fashion. Timeout was performed on the left breast through the previous incision where incision and drainage was performed. This was then opened 4 cm in length. The subcutaneous tissues were then dissected around her nipples slowly retracted. The cyst was partially opened, which was unable to be grasped and dissected it around. The cyst itself was fairly small at this time from previous drainage. The subcutaneous tissues along with the breast tissue were then excised in its entirety removing the previous inflammatory scar tissue as well. The wound was then irrigated with copious amounts of irrigation and suctioned. The subcutaneous tissues were then reapproximated using 3-0 Vicryl. The area was then washed and dried and Skin Affix was placed over the incision. The patient tolerated procedure well without any complications. She was taken to the recovery room in stable condition. Job ID: [id number] DocumentID: [id number] Dictated Date: 03/04/2019 16:37:02 High Lead Yarder Date: 03/04/2019 23:26:36 Dictated By: TERRY BECKER DO
== END 2019-03-03 16:02 | disposition home or self-care (01) ==
LOC: SDC 11:06
PROVIDERS: ATTEND Surgery
DX: N60.02 Solitary cyst of left breast (principal); K80.20 Calculus of gallbladder without cholecystitis without obstruction; I10 Essential (primary) hypertension; F41.9 Anxiety disorder, unspecified; F32.9 Major depressive disorder, single episode, unspecified; F17.210 Nicotine dependence, cigarettes, uncomplicated; Z79.899 Other long term (current) drug therapy
CPT/HCPCS: 84703; 87081

== ENCOUNTER → 2019-04-19 | Outpatient (CLI) | payer MEDICAID ==
[~2019-04-19] MED LIST changes: +TRAZ-222 PO
--- NOTE | 2019-04-19 14:40 | Diagnostic Imaging Report ---
INDICATION: Left breast abscess. Patient presents for 3 month followup. COMPARISON: Correlation is made with the prior left breast ultrasound from 01/06/2019. TECHNIQUE: Sonographic interrogation of the retroareolar region was performed. FINDINGS: There continues to be an area of hypoechogenicity behind the left nipple which appears to be slightly larger when compared to the prior exam. In aggregate, this area measures 2.5 x 1.2 cm; however, a portion of this may include the nipple. This area measured approximately 1.1 x 0.7 cm on the prior exam. There is internal complexity with no definite discrete fluid collection identified. There is some internal vascularity. Reportedly, the patient underwent a surgical procedure after the last ultrasound in this area, perhaps drainage and debridement. IMPRESSION: There continues to be some ill-defined hypoechogenicity in the retroareolar left breast measuring larger than on the prior ultrasound of 3 months earlier. This again may represent inflammatory changes or post surgical changes. No discrete fluid collection is seen at this time; however, continued close followup with a repeat ultrasound in 3 months is recommended to confirm stability and/or resolution. ACR BI-RADS Category 3: Probably benign findings. Dictated by: Dictated on workstation # [id number]
== END ==
LOC: RAD 09:47
PROVIDERS: ATTEND Surgery
DX: N64.52 Nipple discharge (principal); R92.8 Other abnormal and inconclusive findings on diagnostic imaging of breast
CPT/HCPCS: 76642

== ENCOUNTER → 2019-08-07 | Outpatient (CLI) | payer MEDICAID ==
[~2019-08-07] MED LIST changes: -TRAZ-222 PO; +TRZ50T PO
--- NOTE | 2019-08-07 12:45 | Diagnostic Imaging Report ---
INDICATION: Three-month followup breast ultrasound. COMPARISON: 04/19/2019. TECHNIQUE: Multiple Real-time grayscale images were obtained of the left breast in the retroareolar region in various projections. FINDINGS: There is a persistent heterogeneous predominantly hypoechoic area in the retroareolar retroareolar region of the left breast. On today's examination, this measures 2.6 x 1.2 x 1.7 cm which is essentially unchanged when compared to the prior examination. No other discrete solid or cystic masses are appreciated. IMPRESSION: Persistent heterogeneous predominantly hypoechoic area in the retroareolar region of the left breast. Again, this most likely is a chronic inflammatory process. No discrete fluid collection is appreciated to suggest an abscess. Recommend clinical correlation and continued short interval followup ultrasound as clinically warranted. ACR BI-RADS Category 3: Probably benign findings. Result letter will be mailed to the patient. Note: At least 10% of breast cancer is not imaged by mammography. Dictated by: Dictated on workstation # [id number]
== END ==
LOC: RAD 09:42
PROVIDERS: ATTEND Surgery
DX: N60.02 Solitary cyst of left breast (principal)
CPT/HCPCS: 76642

== ENCOUNTER → 2019-12-14 | Outpatient (CLI) | payer MEDICAID ==
--- NOTE | 2019-12-14 14:25 | Diagnostic Imaging Report ---
INDICATION: Constipation. TECHNIQUE: 2 supine view of the abdomen 2:26 PM CORRELATION STUDY: 12/01/2016 FINDINGS: Imaging of the abdomen demonstrates the bowel gas pattern to be unremarkable and without evidence for obstruction. No significant differential air-fluid levels. No evidence for free air. Mild severity fecal retention without evidence for fecal impaction. Cholecystectomy clips. Mild amount retained gastric contents. No pathologic intraabdominal calcifications. IMPRESSION: 1. Nonobstructive appearing bowel gas pattern. Mild severity fecal retention. Dictated by: Dictated on workstation # [id number]
== END ==
LOC: RAD 14:05
PROVIDERS: ATTEND Family Medicine
DX: K59.00 Constipation, unspecified (principal)
CPT/HCPCS: 74018

== ENCOUNTER 2019-12-26 18:34 | Emergency (ER) | payer MEDICAID ==
[~2019-12-26] VITALS: Ht 170 cm; Wt 90.0 kg
[2019-12-26 18:40] VITALS: BP 153/107
[2019-12-26 18:47] LABS: BILIRUBIN,URINE NEGATIVE (NEGATIVE); CLARITY,URINE CLEAR; COLOR,URINE YELLOW; GLUCOSE, URINE (UA) NEGATIVE (NEGATIVE); KETONES,URINE NEGATIVE (NEGATIVE); LEUKOCYTE ESTERASE ,URINE NEGATIVE (NEGATIVE); NITRITE,URINE NEGATIVE (NEGATIVE); PROTEIN,URINE NEGATIVE (NEGATIVE)
--- NOTE | 2019-12-26 18:52 | NUR ---
DR IN WITH PT AT THIS TIME.
[2019-12-26 18:54] LABS: BACTERIA,URINE TRACE /HPF; WBC,URINE RARE /HPF
--- NOTE | 2019-12-26 19:03 | ED Abdominal Pain ---
General Chief Complaint: Abdominal/GI Problems Stated Complaint: ABD/BACK PAIN Nursing Triage Note: CONSTIPATION X2 WEEKS. HAS BEEN TAKING MIRALAX WITH NO RELIEF. Sepsis Screen: No Definite Risk Source of Information: Patient Exam Limitations: No Limitations History of Present Illness Date Seen by Provider: Dec 26, 2019 Time Seen by Provider: 18:48 Initial Comments Patient presents to ER by private conveyance from home with chief complaint of 2-3 weeks of abdominal discomfort in her bilateral upper quadrants radiating through to her back. She says is consistent with her constipation. She's been following with Dr. Schroeder her primary care provider and he has done x-rays and told her to use MiraLAX. For the past week she's been using MiraLAX 1 capful a day. She tried drinking some mag citrate earlier today and that has made her vomit. She's having no fevers or chills. She's had her tubes tied and her gallbladder out by Dr. Rodriguez but no other abdominal surgeries. She has not been able to pass any significant stool. She's never had a colonoscopy. No family history of colon cancer. She was afraid she might be developing a urinary tract infection with back pain. Allergies and Home Medications Allergies Coded Allergies: No Known Drug Allergies (Unverified , 03/03/19) Home Medications Alprazolam 1 Mg Tablet, 1 MG PO PRN, (Reported) Bupropion HCl 150 Mg Tablet.er, 150 MG PO DAILY, (Reported) Hydrocodone Bit/Acetaminophen 1 Tab Tab, 1-2 TAB PO Q6H PRN for PAIN-MODERATE Prescribed by: TERRY RODRIGUEZ on 03/03/19 9256 Lisinopril 10 Mg Tablet, 10 MG PO DAILY, (Reported) Trazodone HCl 50 Mg Tablet, 50 MG PO PRN, (Reported) Patient Home Medication List Home Medication List Reviewed: Yes Review of Systems Review of Systems Constitutional: No chills, No diaphoresis EENTM: No Blurred Vision, No Double Vision Respiratory: Denies Cough, Denies Shortness of Air Cardiovascular: Denies Chest Pain, Denies Lightheadedness Gastrointestinal: See HPI, Abdominal Pain; Denies Constipated, Denies Diarrhea; Nausea; Denies Poor Fluid Intake; Vomiting Genitourinary: Denies Burning, Denies Discharge Musculoskeletal: No back pain, No joint pain Skin: No pruritus, No rash All Other Systems Reviewed Negative Unless Noted: Yes Past Kqpwnex-Bxorho-Vdyumz Hx Patient Social History Alcohol Use: Denies Use Recreational Drug Use: No Smoking Status: Current Everyday Smoker Type Used: Cigarettes 2nd Hand Smoke Exposure: Yes Recent Foreign Travel: No Contact w/Someone Who Travel: No Recent Infectious Disease Expo: No Recent Hopitalizations: No Immunizations Up To Date Tetanus Booster (TDap): Less than 5yrs PED Vaccines UTD: Yes Date of Pneumonia Vaccine: Jun 04, 2014 Seasonal Allergies Seasonal Allergies: No Past Medical History Surgeries: Yes (wisdom teeth, DX LAP WITH SALPINGECTOMY) Gallbladder, Tubal Ligation Respiratory: No Cardiac: Yes Hypertension Neurological: No Reproductive Disorders: No Female Reproductive Disorders: Menstrual Problems, 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, 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 Sexually Transmitted Disease: No HIV/AIDS: No Genitourinary: No Gastrointestinal: No Gall Bladder Disease Musculoskeletal: Yes (RESTLESS LEG SYNDROME) Chronic Back Pain Endocrine: No HEENT: Yes (GLASSES) Loss of Vision: Denies Hearing Impairment: Denies Cancer: No Psychosocial: Yes Anxiety, Depression Integumentary: No Blood Disorders: No Adverse Reaction/Blood Tranf: No (N/A) Family Medical History Alcoholism 03 MOTHER Family history: Cardiovascular disease PATERNAL GRANDPA Family history: Diabetes mellitus PATERNAL GRANDPA Family history: Hypertension 03 MOTHER 03 FATHER Myocardial infarction PATERNAL GRANDPA No Family History of: Abdominal aortic aneurysm No Pertinent Family Hx Physical Exam Vital Signs Vital Signs - First Documented 12/26/19 18:40 Temp 37.2 Pulse 115 Resp 16 B/P (MAP) 153/107 (122) Pulse Ox 97 O2 Delivery Room Air Capillary Refill : Less Than 3 Seconds Height/Weight/BMI Height: 5'9.00" Weight: 171lbs. 8.0oz. [id number]; 31.00 BMI Method:Actual General Appearance: WD/WN, no apparent distress HEENT: PERRL/EOMI, pharynx normal Neck: full range of motion, supple, normal inspection Respiratory: no respiratory distress, no accessory muscle use Cardiovascular: normal peripheral pulses, regular rate, rhythm Peripheral Pulses: 2+ Radial Pulses (R), 2+ Radial Pulses (L) Gastrointestinal: normal bowel sounds, non tender, soft, no organomegaly Extremities: non-tender, normal inspection, normal capillary refill Neurologic/Psychiatric: alert, normal mood/affect, oriented x 3 Skin: normal color, warm/dry Progress/Results/Core Measures Results/Orders Lab Results Laboratory Tests Test 12/26/19 18:42 Range/Units Urine Color YELLOW Urine Clarity CLEAR Urine pH 7.0 5-9 Urine Specific [place] <=1.005 1.016-1.022 Urine Protein NEGATIVE NEGATIVE Urine Glucose (UA) NEGATIVE NEGATIVE Urine Ketones NEGATIVE NEGATIVE Urine Nitrite NEGATIVE NEGATIVE Urine Bilirubin NEGATIVE NEGATIVE Urine Urobilinogen 0.2 < = 1.0 MG/DL Urine Leukocyte Esterase NEGATIVE NEGATIVE Urine RBC (Auto) NEGATIVE NEGATIVE Urine RBC NONE /HPF Urine WBC RARE /HPF Urine Squamous Epithelial Cells 2-5 /HPF Urine Crystals NONE /LPF Urine Bacteria TRACE /HPF Urine Casts NONE /LPF Urine Mucus NEGATIVE /LPF Urine Culture Indicated NO My Orders Orders - TAL LINDSEY Ua Culture If Indicated (12/26/19 18:36) Urine Bedside (12/26/19 18:36) Vital Signs/I&O 12/26/19 18:40 Temp 37.2 Pulse 115 Resp 16 B/P (MAP) 153/107 (122) Pulse Ox 97 O2 Delivery Room Air Blood Pressure Mean: 122 Progress Progress Note : Time: 18:59 Progress Note Nonacute, nonsurgical abdominal exam with negative for psoas sign, Rovsing sign, McBurney's point tenderness, Zapata's sign. Suspect that she is constipated. She has an x-ray which we reviewed. We'll recommend MiraLAX 4 times a day in addition to a fleets enema. If this does not work we encouraged her to use milk of molasses with Dulcolax mixed in a fleets enema. We have discussed the case and answered the patient's questions. We have given her good return precautions. Departure Impression Primary Impression: Obstipation Additional Impression: Irritable bowel syndrome (IBS) Qualified Codes: K58.1 - Irritable bowel syndrome with constipation Disposition: 01 HOME, SELF-CARE Condition: Stable Departure-Patient Inst. Decision time for Depature: 19:01 Referrals: SUZIE SCHROEDER MD (PCP/Family) Primary Care Physician Patient Instructions: Constipation, Adult (DC), IBS Diet, Irritable Bowel Syndrome Add. Discharge Instructions: Start taking MiraLAX 4-6 times a day. You can mix 1 capful in a glass of water every or drinking all day. If you have nausea use Zofran 1 tablet every 4 hours as necessary under the tongue. Tylenol 1000 mg every 8 hours for pain. Ibuprofen 800 mg every 8 hours as needed for pain. Warm baths or heating pads can be helpful for the cramping discomfort. microwave supervisor a fleets enema and use that for instructions. Hold as long as possible. If this does not work then you may make your own enema using an enema bucket. A cup of milk, a cup of molasses and a bottle of fleets enema with 2-4 capsules of Dulcolax dissolved in it. Please return to the ER if you develop a fever, intractable pain or after passing stool you're still having significant difficulty or pain. All discharge instructions reviewed with patient and/or family. Voiced understanding. Scripts Bisacodyl (Dulcolax) 5 Mg Tablet.dr 5 MG OK QID PRN for CONSTIPATION-2ND LINE, #10 TAB 0 Refills Prov: TAL LINDSEY 12/26/19 Na Phos,M-B/Na Phos,Di-Ba (Fleet Enema) 133 Ml Enema 133 ML RC BID PRN for CONSTIPATION-2ND LINE, #4 EA 0 Refills Prov: TAL LINDSEY 12/26/19 Polyethylene Glycol 3350 (Miralax) 17 Gm Powd.pack 17 GM PO Q4H PRN for CONSTIPATION-1ST LINE, #1 EACH 0 Refills Prov: TAL LINDSEY 12/26/19 Ondansetron (Ondansetron Odt) 4 Mg Tab.rapdis 4 MG PO Q4H PRN for NAUSEA/VOMITING, #8 TAB 0 Refills Prov: TAL LINDSEY 12/26/19 Work/School Note: Work Release Form Date Seen in the Emergency Department: Dec 26, 2019 Return to Work: Dec 28, 2019 Restrictions: No Restrictions TAL LINDSEY Dec 26, 2019 19:03
[2019-12-26] MEDS ORDERED: NA P133E22 RC (19:06)
[2019-12-26] MEDS ORDERED: BISA-65 PR (19:06)
[2019-12-26] MEDS ORDERED: POLY17PO6 PO (19:06)
[2019-12-26] MEDS ORDERED: ONDA4TAB11 PO (19:06)
[2019-12-26] MEDS ORDERED: RX-ONDANSETRON 4 MG ODT (ZOFRAN) PPK #4 PO STA (19:09)
== END 2019-12-26 19:14 | disposition home or self-care (01) ==
LOC: EDUNIT# 18:34 → ER 18:35
DX: K58.1 Irritable bowel syndrome with constipation (principal); I10 Essential (primary) hypertension; G25.81 Restless legs syndrome; M54.9 Dorsalgia, unspecified; F41.9 Anxiety disorder, unspecified; F32.9 Major depressive disorder, single episode, unspecified; Z79.899 Other long term (current) drug therapy
CPT/HCPCS: 81000; 84703; 99283

== ENCOUNTER → 2019-12-29 | Outpatient (CLI) | payer MEDICAID ==
[~2019-12-29] MED LIST changes: +BISA-65 PR; +NA P133E22 RC; +ONDA4TAB11 PO; +POLY17PO6 PO
--- NOTE | 2019-12-29 09:24 | Diagnostic Imaging Report ---
PROCEDURE: CT abdomen and pelvis without contrast. TECHNIQUE: Multiple contiguous axial images were obtained through the abdomen and pelvis without the use of intravenous contrast. Auto Exposure Controls were utilized during the CT exam to meet ALARA standards for radiation dose reduction. INDICATION: Bloating, pain and constipation There is a small amount of stool in the colon. The colonic fecal load is not at all pathologic. No impaction or obstruction. No CT findings of constipation. No perienteric or pericolonic edema. No small or large bowel wall thickening. There is a left adnexal cyst presumed ovarian measuring 4.2 x 3.0 cm. The uterus is retroflexed. The right adnexa normal. There is no appendicitis. Air-containing appendix well visualized and normal. No findings of diverticulitis. No radiodense urinary tract calculus disease. No hydroureteronephrosis. The gallbladder is surgically absent. The liver, spleen, adrenals and pancreas unremarkable. No pathological distention of biliary ducts. A tiny noninflamed umbilical fatty hernia is noted with no acute abdominal wall pathology. IMPRESSION: Normal fecal load. No bowel, biliary or urinary tract obstruction. There is a large left adnexal cyst of 4.3 x 3.0 cm its characterization is limited by the absence of contrast and nonemergent outpatient pelvic ultrasound suggested. Dictated by: Dictated on workstation # [id number]
== END ==
LOC: RAD 08:34
PROVIDERS: ATTEND Family Medicine
DX: R14.0 Abdominal distension (gaseous) (principal); K59.00 Constipation, unspecified; R93.5 Abnormal findings on diagnostic imaging of other abdominal regions, including retroperitoneum
CPT/HCPCS: 74176

== ENCOUNTER → 2020-01-02 | Outpatient (CLI) | payer MEDICAID ==
--- NOTE | 2020-01-02 16:43 | Diagnostic Imaging Report ---
PROCEDURE: US Non-ob pelvis comp/trans. TECHNIQUE: Multiple Real-time grayscale images were obtained of the pelvis in various projections endovaginally. Transabdominal imaging was also performed. INDICATION: Left adnexal cyst. FINDINGS: The prior pelvic ultrasound exam of 06/21/2018 failed to show any sign of an acute pelvic abnormality. The CT abdomen/pelvis exam of 12/29/2019, however, noted a large 4.3 x 3.0 cm left adnexal cyst. On this study, there is a 4.2 x 3.0 x 3.2 cm avascular hypoechoic lesion associated with the left ovary. This does contain a few internal echoes and I suspect that this is an ovarian cyst which has been complicated by infection and/or hemorrhage. This would correspond to the finding on the CT exam. The right ovary is unremarkable. There is good blood flow to each ovary and there is no sign of torsion. The uterus is retroverted, nongravid, and prominent measuring 8.9 x 5.2 x 6.1 cm. The endometrial lining is thickened measuring 12 mm (normal 5 mm or less). This finding is nonspecific. Correlation with the patient's menstrual cycle would be recommended. There is no focal mass involving the uterus to suggest a fibroid. IMPRESSION: 1. There is a 4.2 x 3.0 x 3.2 cm slightly complicated cyst in the left adnexa. This would correspond to the finding on the CT exam. A short-term (4-6 week) followup ultrasound exam should be considered for further evaluation. 2. There is no acute pelvic abnormality noted otherwise. Dictated by: Dictated on workstation # [id number]
== END ==
LOC: RAD 13:47
PROVIDERS: ATTEND Family Medicine
DX: N83.8 Other noninflammatory disorders of ovary, fallopian tube and broad ligament (principal)
CPT/HCPCS: 76830; 76856

== ENCOUNTER → 2020-01-31 | Outpatient (CLI) | payer MEDICAID ==
--- NOTE | 2020-02-01 21:07 | Diagnostic Imaging Report ---
INDICATION: History of retroareolar breast abscess. COMPARISON: It is compared with unilateral left breast ultrasounds dated 01/06/2019, 04/19/2019 and most recently 08/07/2019. FINDINGS: Originally, there was a complex retroareolar fairly well-defined fluid collection at the presenting exam. In the interim this shows some likely residual scarring and/or chronic inflammatory changes in the parenchyma deep to the nipple but no identifiable residual or recurrent drainable fluid collection at today's exam is shown. The aggregative altered echotexture measures a maximal transverse dimension of 2.1 cm decreased and retracted from the prior is when it measured maximal about 2.5 cm of echogenicity, likely calcification, within the process, unchanged. No appreciable ductal ectasia. No vascularized mass. IMPRESSION: There may be some chronic inflammatory changes or scarring in the subareolar breast at the site of previous complex fluid collection presumed having reflected an abscess. No findings of residual or recurrent abscess or drainable collection on follow-up. No ductal ectasia and no appreciable vascularized mass. ACR BI-RADS Category 2: Benign findings. Result letter will be mailed to the patient. Note: At least 10% of breast cancer is not imaged by mammography. Dictated by: Dictated on workstation # [id number]
== END ==
LOC: RAD 08:09
PROVIDERS: ATTEND Surgery
DX: N64.9 Disorder of breast, unspecified (principal)
CPT/HCPCS: 76642

== ENCOUNTER → 2020-01-31 | Outpatient (CLI) | payer MEDICAID ==
--- NOTE | 2020-01-31 10:40 | Diagnostic Imaging Report ---
PROCEDURE: US Non-ob pelvis comp/trans. TECHNIQUE: Multiple realtime grayscale images were obtained of the pelvis in various projections endovaginally. Transabdominal imaging was also performed. INDICATION: Left ovarian cyst, follow-up. Correlation is made with prior pelvic ultrasound from 01/02/2020. Uterus is retroverted measuring 8.2 x 5.2 x 5.8 cm. Endometrium is 12 mm in thickness. No myometrial mass is detected. Right ovary measures 2.5 x 2.5 x 1.4 cm and the left ovary measures 3.7 x 2.4 x 2.3 cm. Previously noted complex cyst involving the left ovary has decreased in size, now measuring 1.9 x 1.2 x 1.5 cm. This compares with prior measurement of 4.2 x 3.0 x 3.2 cm. Small amount of free fluid is present. IMPRESSION: Decrease in size of complex left ovarian cyst when compared with examination 1 month earlier. Dictated by: Dictated on workstation # [id number]
== END ==
LOC: RAD 08:07
PROVIDERS: ATTEND Family Medicine
DX: N83.202 Unspecified ovarian cyst, left side (principal)
CPT/HCPCS: 76830; 76856

== ENCOUNTER → 2020-07-17 | Outpatient (CLI) | payer MEDICAID ==
--- NOTE | 2020-07-17 14:28 | Diagnostic Imaging Report ---
INDICATION: Left breast abscess with scarring, followup. COMPARISON: Correlation is made with the prior left breast ultrasound from 01/31/2020. FINDINGS: Sonographic interrogation of the retroareolar left breast was performed. The area of heterogeneous hypoechogenicity just deep to the nipple measures 0.9 x 2.3 x 0.9 cm, similar to the prior exam. This again may reflect chronic inflammatory changes or scarring. No new fluid collection is detected. IMPRESSION: Stable chronic changes in the retroareolar left breast when compared to the examination from 01/31/2020. ACR BI-RADS Category 2: Benign findings. Dictated by: Dictated on workstation # [id number]
== END ==
LOC: RAD 10:48
PROVIDERS: ATTEND Surgery
DX: N61.1 Abscess of the breast and nipple (principal)
CPT/HCPCS: 76642

== ENCOUNTER → 2021-02-11 | Outpatient (CLI) | payer MEDICAID ==
[~2021-02-11] MED LIST changes: -LISI10TA2 PO; +LISI10TA25 PO
== END ==
LOC: RAD 12:43
PROVIDERS: ATTEND Surgery
DX: N63.22 Unspecified lump in the left breast, upper inner quadrant (principal); Z53.9 Procedure and treatment not carried out, unspecified reason

== ENCOUNTER → 2021-02-11 | Outpatient (CLI) | payer MEDICAID ==
--- NOTE | 2021-02-11 20:15 | Diagnostic Imaging Report ---
PROCEDURE: Pelvic comp/transvaginal sonogram. TECHNIQUE: Complete transabdominal and transvaginal pelvic ultrasound was performed. In addition, limited pelvic Doppler was performed. INDICATION: 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 and left-sided pelvic pain. Uterus is retroverted measuring 8.2 x 5.7 x 6.2 cm. Endometrium is somewhat thickened at 19 mm. No myometrial mass is detected. Right ovary measures 3.6 x 1.8 x 2.5 cm and the left ovary measures 2.8 x 1.4 x 1.3 cm. There is a complex mass in the right ovary measuring 2.1 x 0.7 x 0.6 cm. This does show some peripheral vascularity and may represent a hemorrhagic cyst. There is some free fluid in the adnexa bilaterally. There is blood flow to the ovaries bilaterally. IMPRESSION: 1. Thickened endometrium of 19 mm. 2. Complex right ovarian cyst, likely hemorrhagic. Dictated by: Dictated on workstation # [id number]
--- NOTE | 2021-02-11 20:16 | Diagnostic Imaging Report ---
INDICATION: Prior history of left breast abscess. Study is performed for follow-up. CORRELATION is made with left breast ultrasound from 07/17/2020. Sonographic interrogation of the retroareolar left breast was performed. An area of hypoechogenicity measures 1.9 x 1.0 x 1.7 cm compared with 2.3 x 0.8 x 1.8 cm on prior exam. No discrete fluid collection is identified. IMPRESSION: Similar to slight decrease in size of area of hypoechogenicity in the retroareolar left breast when compared with examination from 07/17/2020. ACR category BI-RADS 2 ACR BI-RADS Category 2: Benign findings. Result letter will be mailed to the patient. Note: At least 10% of breast cancer is not imaged by mammography. Dictated by: Dictated on workstation # [id number]
== END ==
LOC: RAD 13:45
PROVIDERS: ATTEND Family Medicine
DX: N83.201 Unspecified ovarian cyst, right side (principal); R93.89 Abnormal findings on diagnostic imaging of other specified body structures
CPT/HCPCS: 76642; 76830; 76856

== ENCOUNTER 2021-03-20 06:45 | Outpatient (CLI) | payer MEDICAID ==
[~2021-03-20] VITALS: Ht 175.3 cm; Wt 82.6 kg
[~2021-03-20 06:45] MED LIST changes: -SULF1TAB35 PO; +SULF1TAB38 PO
[2021-03-20] MEDS ORDERED: LISI10TA25 PO (14:57)
[2021-03-20] MEDS ORDERED: ALPR1TAB7 PO (14:57)
[2021-03-20] MEDS ORDERED: OMEP20CA18 PO (14:57)
[2021-03-20] MEDS ORDERED: RT-ALBUINH IH (14:57)
[2021-03-24] MEDS ORDERED: DCS100C PO (11:46)
[2021-03-24] MEDS ORDERED: SMT80CT PO (11:46)
[2021-03-24] MEDS ORDERED: IBUP-844 PO (11:46)
[2021-03-24] MEDS ORDERED: BENZ1LOZ64 MM (11:46)
[2021-03-24] MEDS ORDERED: HYDR-34 PO (11:46)
[2021-03-24] MEDS ORDERED: HYDR-3817 PO (19:27)
== END 2021-03-20 15:21 | disposition home or self-care (01) ==
LOC: PREOP 06:45
PROVIDERS: ATTEND Obstetrics & Gynecology
DX: Z01.818 Encounter for other preprocedural examination (principal)

== ENCOUNTER 2021-03-24 08:51 | Day surgery (SDC) | payer MEDICAID ==
[2021-03-24] VITALS (10 sets, daily range): BP systolic 122–152; BP diastolic 77–96
[~2021-03-24] VITALS: Ht 175.3 cm; Wt 82.6 kg
[~2021-03-24 08:51] MED LIST changes: +OMEP20CA18 PO; +RT-ALBUINH IH
[2021-03-24] MEDS ORDERED: ceFAZolin 2 GM IV Premixed 50 ML IV ONE (09:15)
[2021-03-24] MEDS ORDERED: metroNIDAZOLE 500MG/100ML IVPB 100 ML IV ONE (09:15)
[2021-03-24] MEDS ORDERED: LIDOCAINE PF 2% 5 ML (XYLOCAINE) VIAL ONE (09:46)
[2021-03-24] MEDS ORDERED: proPOfol 200 MG/20 ML (DIPRIVAN) VIAL IV ONE (09:46)
[2021-03-24] MEDS ORDERED: fentaNYL INJ 100 MCG/2 ML AMP ONE (09:46)
[2021-03-24] MEDS ORDERED: MIDAZOLAM 2 MG/2 ML (VERSED) VIAL ONE (09:46)
[2021-03-24] MEDS ORDERED: BUPIVACAINE 0.25% 30 ML (SENSORCAINE) VIAL ONE (10:03)
[2021-03-24] MEDS: LACTATED RINGERS 1,000 ML IV PRN ×3 (10:07→11:34)
[2021-03-24 10:09] LABS: BASOPHILS % (AUTO) 0 % (0-10); EOSINOPHILS % (AUTO) 0 % (0-10); HEMATOCRIT 41 % (35-52); HEMOGLOBIN 13.2 g/dL (11.5-16.0); LYMPHOCYTES # (AUTO) 2.4 10^3/uL (1.0-4.0); LYMPHOCYTES % (AUTO) 18 % (12-44); MEAN CORPUSCULAR HEMOGLOBIN 26 pg (25-34); MEAN CORPUSCULAR HGB CONC 33 g/dL (32-36); MEAN CORPUSCULAR VOLUME 79 fL (80-99); MEAN PLATELET VOLUME 10.4 fL (9.0-12.2); MONOCYTES # (AUTO) 0.6 10^3/uL (0.0-1.0); MONOCYTES % (AUTO) 4 % (0-12); NEUTROPHILS # (AUTO) 9.8 10^3/uL (1.8-7.8); NEUTROPHILS % (AUTO) 76 % (42-75); PLATELET COUNT 398 10^3/uL (130-400); WHITE BLOOD COUNT 12.9 10^3/uL (4.3-11.0)
--- NOTE | 2021-03-24 10:40 | Progress Note-Pre Operative ---
Pre-Operative Progress Note H&P Reviewed The H&P was reviewed, patient examined and no changes noted. Date Seen by Provider: Mar 24, 2021 Time Seen by Provider: 10:10 Date H&P Reviewed: Mar 24, 2021 Time H&P Reviewed: 10:15 Pre-Operative Diagnosis: CPP, 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, Dysparenuia SAMANTHA MOORE DO Mar 24, 2021 10:40
[2021-03-24] MEDS ORDERED: ANTACID SUSP 30 ML UDC (MYLANTA) PO PRN (10:45)
[2021-03-24] MEDS ORDERED: KETOROLAC 30 MG/ML VIAL IV PRN (10:45)
[2021-03-24] MEDS ORDERED: CHLORASEPTIC LOZENGE MM PRN (10:45)
[2021-03-24] MEDS ORDERED: HYDROcodone/APAP 7.5 MG/325 MG (LORTAB, LORCET PLUS) TABLET PO PRN (10:45)
[2021-03-24] MEDS ORDERED: LACTATED RINGERS 1,000 ML IV SCH (10:45)
[2021-03-24] MEDS ORDERED: SIMETHICONE 80 MG (MYLICON) CHEW PO PRN (10:45)
[2021-03-24] MEDS ORDERED: ZOLPIDEM 5 MG (AMBIEN) TAB PO PRN (10:45)
[2021-03-24] MEDS ORDERED: ONDANSETRON 4 MG/2 ML (SDV) Z0FRAN IV PRN (10:45)
[2021-03-24] MEDS ORDERED: DOCUSATE SODIUM 100 MG (COLACE) CAP PO PRN (10:45)
[2021-03-24] MEDS ORDERED: SEVOFLURANE (ULTANE) 15 ML INHAL SOLN ONE (11:42)
[2021-03-24] MEDS ORDERED: ROCURONIUM 10 MG/ML 5 ML SYRINGE IV ONE (11:42)
[2021-03-24] MEDS ORDERED: NEOSTIGMINE 3 MG/3 ML VIAL ONE (11:42)
[2021-03-24] MEDS ORDERED: GLYCOPYRROLATE 0.2 MG/ML (ROBINUL) 2 ML VIAL ONE (11:42)
[2021-03-24] MEDS ORDERED: IBUP-844 PO (11:46)
[2021-03-24] MEDS ORDERED: DCS100C PO (11:46)
[2021-03-24] MEDS ORDERED: SMT80CT PO (11:46)
[2021-03-24] MEDS ORDERED: HYDR-34 PO (11:46)
[2021-03-24] MEDS ORDERED: BENZ1LOZ64 MM (11:46)
--- NOTE | 2021-03-24 11:48 | Discharge Inst-Women's Service ---
Discharge Inst-Women's Serv Depart Medication/Instructions New, Converted or Re-Newed RX: RX on Chart Problems Reviewed?: Yes Consults/Follow Up Additional Follow Up: Yes Orders/Referrals Dr. Moore in 7-10 days and in 8 weeks Activity Activity: Activity as Tolerated Driving Instructions: No Driving for 1 Week NO SMOKING: NO SMOKING Nothing Inside Vagina: No Douching, No Golva, No Tampons Diet Discharge Diet: No Restrictions Symptoms to Report to : Bleeding Excessive, Pain Increased, Fever Over 101 Degrees F, Vaginal Bleeding Increase, Questions/Concerns SAMANTHA MOORE DO Mar 24, 2021 11:48
[2021-03-24] MEDS ORDERED: morphine INJ 10 MG/ML 1ML (SYR OR VIAL) ONE (12:08)
[2021-03-24] MEDS ORDERED: KETOROLAC 30 MG/ML VIAL ONE (12:08)
--- NOTE | 2021-03-24 12:23 | Anesthesia-General Post-Op ---
General Patient Condition Mental Status/LOC: Same as Preop Cardiovascular: Satisfactory Nausea/Vomiting: Absent Respiratory: Satisfactory Pain: Controlled Complications: Absent (Spoke with patient re: dental trauma as she was alycia kening in PACU. Pt reports that half of tooth is false, an injury from 6th grade. She says she had repeat trauma to that tooth in Sep, and has been "fixing" it at home with some sort of adhesive. She wanted to make sure she had the broken piece so she could "fix" it. Tooth given to AVAYA ENGINEER with patient [employer] it. Dentist has supposedly told her she needs a new crown. ) Post Op Complications Complications None Follow Up Care/Instructions Patient Instructions None needed. Anesthesia/Patient Condition Patient Condition Patient is doing well, no complaints, stable vital signs, no apparent adverse anesthesia problems. No complications reported per nursing. MATILDA HOLLOWAY CRNA Mar 24, 2021 12:23
[2021-03-24] MEDS ORDERED: fentaNYL INJ 100 MCG/2 ML AMP IVP ONE (12:30)
[2021-03-24] MEDS ORDERED: ONDANSETRON 4 MG/2 ML (SDV) Z0FRAN IVP PRN (12:30)
[2021-03-24] MEDS ORDERED: morphine INJ 10 MG/ML 1ML (SYR OR VIAL) IVP ONE (12:30)
[2021-03-24] MEDS ORDERED: HYDROcodone/APAP 7.5 MG/325 MG (LORTAB, LORCET PLUS) TABLET PO ONE (14:00)
--- NOTE | 2021-03-24 17:11 | OPERATIVE REPORT ---
DATE OF SERVICE: 03/24/2021 PREOPERATIVE DIAGNOSES: 1. A 30-year-old female with chronic pelvic pain. 2. Dysmenorrhea. 3. Dyspareunia. 4. History of endometriosis. POSTOPERATIVE DIAGNOSES: 1. A 30-year-old female with chronic pelvic pain. 2. Dysmenorrhea. 3. Dyspareunia. 4. History of endometriosis. PROCEDURE: Robotic-assisted total laparoscopic hysterectomy. SURGEON: Maurice Moore DO DEFENSE TRAVEL ADMINISTRATOR: Rosamaria Lisa DNP, who was necessary for manipulation and retraction throughout the procedure. ANESTHESIA: General endotracheal. ESTIMATED BLOOD LOSS: Minimal. URINE OUTPUT: 10 mL clear at the end of the procedure. FLUIDS: 2 liters lactated Ringer's solution. FINDINGS: A grossly normal appearing uterus, grossly normal appearing bilateral ovaries. One small endometriosis implant of the broad ligament that was noted on the left side. Otherwise, grossly normal appearing upper abdominal anatomy and viscera. SPECIMEN SENT: Uterus and cervix. INDICATIONS FOR PROCEDURE: This 30-year-old female is a patient who had sought care in my office for the last several years. She underwent bilateral salpingectomy over a year ago for sterilization purposes; however, continued to have pain and discomfort, continued to have pain with intercourse and wished to proceed with more definitive measures for this. I discussed with the patient with her history of endometriosis that are more conservative treatment options; however, she does not want to explore those option. Risks of the hysterectomy was discussed with the patient in detail including the risk of bleeding, infection, damage to surrounding structures including, but not limited to bowel, bladder, ureter, kidneys, possible need for operation, postoperative complications that may occur, risk from anesthesia and even . After everything was discussed with the patient in detail, consent was obtained in the preoperative area, the patient was taken to the operating room. OPERATIVE REPORT IN DETAIL: Once in the operating room, general anesthesia was found to be adequate. She was placed in dorsal lithotomy position, prepped and draped in normal sterile fashion where a timeout was performed. Anesthesia was tested. A Patel catheter was placed using sterile technique. A weighted speculum inserted to the patient's vagina. Right angle retractor was used to visualize the cervix, which was grasped at 12 o'clock position using a long Allis clamp. I then placed an 0 Vicryl suture through the anterior lip of the cervix and used as my retraction point. I then gently sound the uterine cavity, depth was found to be 8 cm. I then selected 8 cm Marni uterine manipulator tip and a 3.5 cm colpotomy ring. The manipulator tip was advanced into the uterus where the balloon was deployed and the colpotomy ring was advanced around the vaginal fornix. All the other instruments were removed from the patient's vagina. I performed a change of gloves obtained my attention to the abdomen where the midclavicular line two fingerbreadths subcostally I placed a Veress needle, intraperitoneal placement was confirmed using saline drop test. An opening pressure of 5 mmHg was noted. I proceeded to maximum pressure of 15 mmHg, at which point I made an 8 mm incision with a knife infraumbilically after I infiltrated this area using 0.25% Marcaine. I then introduced an 8 mm blunt laparoscopic da Mark Anthony camera trocar. Once this was in place, I am able to confirm intraperitoneal placement using da Mark Anthony laparoscope. The scan of the upper abdominal anatomy was grossly normal. I also identified the puncture wound from the Veress needle, which had evidence of damage upon my entry site. I then removed the Veress needle. I then had the patient placed in steep Trendelenburg, I am able to visualize all my pelvic anatomy as defined in my findings above. I then placed two lateral trocars. These were both 8 mm trocars approximately 10 cm lateral to my infraumbilical trocar. Once both these trocars were in place, I bring in the da Mark Anthony robot and docked in appropriate fashion placing the SynchroSeal device in the left hand and monopolar sheyla in the right hand. I performed the following dissection bilaterally. I started the uteroovarian ligament, which I sealed and transect using the SynchroSeal device. I then grasped the round ligament, which I sealed and transected using the SynchroSeal device. I then grasped the entire broad ligament, which I sealed and transected using the SynchroSeal device down to the level of the lower uterine segment, at which point I the anterior and posterior leaflets of the broad ligament, anterior leaflet dissection was taken around the anterior vaginal fornix and posterior leaflets segment, which was taken around to the posterior vaginal fornix. This allows me to skeletonize the uterine vessels laterally, which I sealed and transected using the SynchroSeal device. I then performed a colpotomy at 12 o'clock position using monopolar sheyla and took this circumferentially around the vaginal fornix amputating the cervix away from the vagina. I then removed the entire specimen through the vagina. The lateral vaginal apices were then closed and the vaginal cuff using 2-0 Vicryl suture in a [id number]-[id number] fashion, colposuspending them to the uterosacral ligaments. I then closed the remainder of the vaginal cuff using 2-0 V-Loc in a running fashion, after which there was no active bleeding noted from any of my dissection planes. I then undocked the da Mark Anthnoy robot and proceeded with remainder of the case. I copiously irrigated the pelvis using normal saline. Once again, there was no active bleeding noted from any of my dissection planes. I placed FloSeal hemostatic agent over all my planes of dissection and the patient was taken out of steep Trendelenburg where I removed the lateral trocars under direct visualization of laparoscope. The infraumbilical trocar was left in place to release insufflation and to introduce 10 mL of 0.25% Marcaine into the peritoneal cavity for postoperative pain management. I then removed this trocar as well. The skin reapproximated using 4-0 Monocryl in interrupted subcuticular stitches. Dermabond was applied to the incision and bandage were placed over these as well. Patel catheter was left in place. The patient tolerated the procedure well and was taken to recovery area in stable condition. Lap and sponge counts were correct at the end of the procedure. Instrument counts were correct as well. Two grams of Ancef, 500 mg of Flagyl were given preoperatively for infection prophylaxis. Job ID: [id number] DocumentID: [id number] Dictated Date: 03/24/2021 12:13:03 Shift Production Associate Date: 03/24/2021 17:10:39 Dictated By: MAURICE MOORE DO
[2021-03-24] MEDS ORDERED: HYDR-3817 PO (19:27)
[2021-03-25] MEDS ORDERED: IBUPROFEN 600 MG (MOTRIN) TAB PO SCH (03:30)
[2021-03-26] MEDS ORDERED: HYDR-3817 PO (13:25)
== END 2021-03-24 19:07 | disposition home or self-care (01) ==
LOC: SDC 08:51 → WS 12:55 → SDC 19:07
PROVIDERS: ATTEND Obstetrics & Gynecology
DX: N72 Inflammatory disease of cervix uteri (principal); N94.6 Dysmenorrhea, unspecified; G89.29 Other chronic pain; N94.10 Unspecified dyspareunia; N80.3 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 of pelvic peritoneum; N93.9 Abnormal uterine and vaginal bleeding, unspecified; I10 Essential (primary) hypertension; F17.210 Nicotine dependence, cigarettes, uncomplicated; Z79.899 Other long term (current) drug therapy; Z87.42 Personal history of other diseases of the female genital tract
CPT/HCPCS: 36415; 84703; 85025; 86850; 86900; 86901; 87081; 88307

== ENCOUNTER 2021-04-02 21:42 | Emergency (ER) | payer MEDICAID ==
[~2021-04-02] VITALS: Ht 175 cm; Wt 96.6 kg
[~2021-04-02 21:42] MED LIST changes: +BENZ1LOZ64 MM; +DCS100C PO; +HYDR-34 PO; +HYDR-3817 PO; +IBUP-844 PO; +SMT80CT PO
[2021-04-02 22:29] LABS: BASOPHILS % (AUTO) 0 % (0-10); EOSINOPHILS # (AUTO) 0.2 10^3/uL (0.0-0.3); EOSINOPHILS % (AUTO) 2 % (0-10); HEMATOCRIT 37 % (35-52); HEMOGLOBIN 11.3 g/dL (11.5-16.0); LYMPHOCYTES # (AUTO) 2.6 10^3/uL (1.0-4.0); LYMPHOCYTES % (AUTO) 20 % (12-44); MEAN CORPUSCULAR HEMOGLOBIN 26 pg (25-34); MEAN CORPUSCULAR HGB CONC 31 g/dL (32-36); MEAN CORPUSCULAR VOLUME 83 fL (80-99); MEAN PLATELET VOLUME 9.9 fL (9.0-12.2); MONOCYTES # (AUTO) 0.5 10^3/uL (0.0-1.0); MONOCYTES % (AUTO) 4 % (0-12); NEUTROPHILS # (AUTO) 9.6 10^3/uL (1.8-7.8); NEUTROPHILS % (AUTO) 73 % (42-75); PLATELET COUNT 441 10^3/uL (130-400); WHITE BLOOD COUNT 13.1 10^3/uL (4.3-11.0)
[2021-04-02] MEDS ORDERED: LACTATED RINGERS 1,000 ML IV ONE (22:30)
[2021-04-02 22:40] LABS: CALCIUM 9.5 MG/DL (8.5-10.1); CREATININE SERUM 0.78 MG/DL (0.60-1.30); POTASSIUM 3.2 MMOL/L (3.6-5.0)
[2021-04-02 22:49] LABS: BILIRUBIN,URINE NEGATIVE (NEGATIVE); CLARITY,URINE CLEAR; COLOR,URINE YELLOW; GLUCOSE, URINE (UA) NEGATIVE (NEGATIVE); KETONES,URINE NEGATIVE (NEGATIVE); LEUKOCYTE ESTERASE ,URINE TRACE (NEGATIVE); NITRITE,URINE NEGATIVE (NEGATIVE); PH,URINE 6.5 (5-9); PROTEIN,URINE NEGATIVE (NEGATIVE)
[2021-04-02 22:56] LABS: BACTERIA,URINE TRACE /HPF; WBC,URINE RARE /HPF
[2021-04-02] MEDS ORDERED: KCL 10 MEQ TAB (MICRO K) PO ONE (23:30)
--- NOTE | 2021-04-02 23:31 | ED GU-Female ---
General Chief Complaint: Female Reproductive Stated Complaint: VAGINAL BLEEDING/ POST OP HYSTERECTOMY Nursing Triage Note: PT PRESENTS TO THE ED C/O VAGINAL BLEEDING AND LIGHTHEADEDNESS THAT ONSET TODAY. PT STATES SHE HAD A TOTAL HYSTERECTOMY ONE WEEK AGO, DENIES BLEEDING OR CRAMPING UNTIL TODAY. PT STATES SHE BLED THROUGH THE SHORTS SHE IS WEARING. DENIES USING A TAMPON OR PAD Source: patient Exam Limitations: no limitations History of Present Illness Date Seen by Provider: Apr 02, 2021 Time Seen by Provider: 22:09 Initial Comments 30-year-old young lady presents to the emergency room with complaints of vaginal bleeding after having hysterectomy last week. She had a laparoscopic hyste rectomy with Dr. Moore. She had been recovering well with pain as expected. She had no bleeding since the day of her surgery. However, today she fell out of her bed while bending over and trying to grab an item underneath the bed. She then noticed some vaginal bleeding. The blood soiled her underwear and dripped into the toilet when she went to the bathroom. She compared it to menstrual cycle bleeding. Bleeding started around 1930. She did not have a significant increase in pain. She did however feel lightheaded afterwards. Allergies and Home Medications Allergies Coded Allergies: No Known Drug Allergies (Unverified , 03/03/19) Home Medications Albuterol Sulfate 1 Puff Puff, 2 PUFF IH Q4H PRN for WHEEZING, (Reported) 1 PUFF = 90 MCG Alprazolam 1 Mg Tablet, 0.5-1 TAB PO Q12H PRN for ANXIETY, (Reported) TAKE 1/2 - 1 TABLET EVERY 12 HOURS NEEDED FOR ANXIETY Benzocaine/Menthol 1 Each Lozenge, 1 CURT MM Q3H PRN for SORE THROAT Prescribed by: SAMANTHA MOORE on 03/24/21 1146 Docusate Sodium 100 Mg Capsule, 100 MG PO BID PRN for CONSTIPATION-1ST LINE Prescribed by: SAMANTHA MOORE on 03/24/21 1146 Hydrocodone/Acetaminophen 1 Each Tablet, 1-2 EACH PO Q6H PRN for PAIN-MODERATE (5-7) Prescribed by: SAMANTHA MOORE on 03/26/21 1325 Ibuprofen 600 Mg Tablet, 600 MG PO Q6H Prescribed by: SAMANTHA MOORE on 03/24/21 1146 Lisinopril 10 Mg Tablet, 10 MG PO DAILY, (Reported) Omeprazole 20 Mg Capsule.dr, 20 MG PO DAILY, (Reported) Simethicone 80 Mg Tab.chew, 40 MG PO TID PRN for INDIGESTION 2ND LINE Prescribed by: SAMANTHA MOORE on 03/24/21 1146 Patient Home Medication List Home Medication List Reviewed: Yes Review of Systems Review of Systems Constitutional: no symptoms reported EENTM: no symptoms reported Respiratory: no symptoms reported Cardiovascular: see HPI Gastrointestinal: no symptoms reported Genitourinary: see HPI : No Musculoskeletal: no symptoms reported Skin: no symptoms reported Psychiatric/Neurological: No Symptoms Reported Endocrine: No Symptoms Reported Hematologic/Lymphatic: No Symptoms Reported Past Pexmoyv-Inkspp-Gbqfjm Hx Patient Social History Tobacco Use?: Yes Tobacco type used: Cigarettes Substance use?: No Alcohol Use?: No Immunizations Up To Date Tetanus Booster (TDap): Less than 5yrs PED Vaccines UTD: Yes Seasonal Allergies Seasonal Allergies: No Past Medical History Surgeries: Yes (wisdom teeth, DX LAP WITH SALPINGECTOMY) Gallbladder, Hysterectomy, Tubal Ligation Respiratory: Yes (PREVIOUS LUNG INJURY WITH SMOKE/HEAT INHALATION) Currently Using CPAP: No Currently Using BIPAP: No Cardiac: Yes Hypertension Neurological: No Reproductive Disorders: No Female Reproductive Disorders: Menstrual Problems, 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, Ovarian 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 Sexually Transmitted Disease: No HIV/AIDS: No Genitourinary: No Gastrointestinal: Yes Gastroesophageal Reflux, Gall Bladder Disease Musculoskeletal: Yes (RESTLESS LEG SYNDROME) Chronic Back Pain Endocrine: No HEENT: Yes (GLASSES) Loss of Vision: Denies Hearing Impairment: Denies Cancer: No Psychosocial: Yes Anxiety, Depression Integumentary: No Blood Disorders: No Adverse Reaction/Blood Tranf: No (N/A) Family Medical History Alcoholism 03 MOTHER Family history: Cardiovascular disease PATERNAL GRANDPA Family history: Diabetes mellitus PATERNAL GRANDPA Family history: Hypertension 03 MOTHER 03 FATHER Myocardial infarction PATERNAL GRANDPA No Family History of: Abdominal aortic aneurysm No Pertinent Family Hx Physical Exam Vital Signs Vital Signs - First Documented 04/02/21 21:54 Temp 36.8 Pulse 89 Resp 16 B/P (MAP) 137/90 (106) Pulse Ox 98 O2 Delivery Room Air Capillary Refill : Less Than 3 Seconds Height, Weight, BMI Height: 5'9.00" Weight: 171lbs. 8.0oz. [id number]; 31.00 BMI Method:Actual General Appearance: WD/WN, no apparent distress HEENT: normal ENT inspection Neck: normal inspection Cardiovascular: regular rate, rhythm, no edema, no murmur Respiratory: lungs clear, normal breath sounds, no respiratory distress Gastrointestinal: soft, other (Well-healing incisions. Postoperative tenderness as anticipated.) Extremities: normal inspection, no pedal edema Neurologic/Psychiatric: morning babysitter II-XII nml as tested, no motor/sensory deficits, alert, normal mood/affect, oriented x 3 Skin: normal color, warm/dry Progress/Results/Core Measures Suspected Sepsis SIRS Temperature: Pulse: 89 Respiratory Rate: 16 Laboratory Tests 04/02/21 22:16: White Blood Count 13.1H Blood Pressure 137 /90 Mean: 106 Laboratory Tests 04/02/21 22:16: Creatinine 0.78, Platelet Count 441H Results/Orders Lab Results Laboratory Tests Test 04/02/21 22:16 04/02/21 22:42 Range/Units White Blood Count 13.1 H 4.3-11.0 10^3/uL Red Blood Count 4.40 3.80-5.11 10^6/uL Hemoglobin 11.3 L 11.5-16.0 g/dL Hematocrit 37 35-52 % Mean Corpuscular Volume 83 80-99 fL Mean Corpuscular Hemoglobin 26 25-34 pg Mean Corpuscular Hemoglobin Concent 31 L 32-36 g/dL Red Cell Distribution Width 13.9 10.0-14.5 % Platelet Count 441 H 130-400 10^3/uL Mean Platelet Volume 9.9 9.0-12.2 fL Immature Granulocyte % (Auto) 1 % Neutrophils (%) (Auto) 73 42-75 % Lymphocytes (%) (Auto) 20 12-44 % Monocytes (%) (Auto) 4 0-12 % Eosinophils (%) (Auto) 2 0-10 % Basophils (%) (Auto) 0 0-10 % Neutrophils # (Auto) 9.6 H 1.8-7.8 10^3/uL Lymphocytes # (Auto) 2.6 1.0-4.0 10^3/uL Monocytes # (Auto) 0.5 0.0-1.0 10^3/uL Eosinophils # (Auto) 0.2 0.0-0.3 10^3/uL Basophils # (Auto) 0.0 0.0-0.1 10^3/uL Immature Granulocyte # (Auto) 0.1 0.0-0.1 10^3/uL Sodium Level 138 135-145 MMOL/L Potassium Level 3.2 L 3.6-5.0 MMOL/L Chloride Level 103 98-107 MMOL/L Carbon Dioxide Level 24 21-32 MMOL/L Anion Gap 11 5-14 MMOL/L Blood Urea Nitrogen 4 L 7-18 MG/DL Creatinine 0.78 0.60-1.30 MG/DL Estimat Glomerular Filtration Rate 86 BUN/Creatinine Ratio 5 Glucose Level 158 H 70-105 MG/DL Calcium Level 9.5 8.5-10.1 MG/DL C-Reactive Protein High Sensitivity 2.66 H 0.00-0.50 MG/DL Urine Color YELLOW Urine Clarity CLEAR Urine pH 6.5 5-9 Urine Specific [place] 1.010 L 1.016-1.022 Urine Protein NEGATIVE NEGATIVE Urine Glucose (UA) NEGATIVE NEGATIVE Urine Ketones NEGATIVE NEGATIVE Urine Nitrite NEGATIVE NEGATIVE Urine Bilirubin NEGATIVE NEGATIVE Urine Urobilinogen 0.2 < = 1.0 MG/DL Urine Leukocyte Esterase TRACE H NEGATIVE Urine RBC (Auto) 3+ H NEGATIVE Urine RBC 5-10 H /HPF Urine WBC RARE /HPF Urine Squamous Epithelial Cells 5-10 /HPF Urine Crystals NONE /LPF Urine Bacteria TRACE /HPF Urine Casts NONE /LPF Urine Mucus SMALL H /LPF Urine Culture Indicated NO My Orders Orders - ESE CARLOS MD Ed Iv/Invasive Line Start (04/02/21 22:23) Lactated Ringers (Lr 1000 Ml Iv Solution (04/02/21 22:30) Basic Metabolic Panel (04/02/21 22:23) Cbc With Automated Diff (04/02/21 22:23) Ua Culture If Indicated (04/02/21 22:23) Hs C Reactive Protein (04/02/21 22:52) Potassium Chloride (Tablet) (Klor Con Ta (04/02/21 23:30) Medications Given in ED Current Medications Medications Dose Ordered Sig/Raul Route Start Time Stop Time Status Last Admin Dose Admin Lactated Ringer's 1,000 ml @ 0 mls/hr Q0M ONCE IV 04/02/21 22:30 04/02/21 22:31 DC 04/02/21 22:50 1,000 MLS/HR Potassium Chloride 20 meq ONCE ONCE PO 04/02/21 23:30 04/02/21 23:31 DC 04/02/21 23:48 20 MEQ Vital Signs/I&O 04/02/21 04/02/21 21:54 23:51 Temp 36.8 36.8 Pulse 89 93 Resp 16 16 B/P (MAP) 137/90 (106) 138/75 (106) Pulse Ox 98 98 O2 Delivery Room Air Room Air Capillary Refill : Less Than 3 Seconds Blood Pressure Mean: 106 Progress Note : Progress Note Patient felt better after receiving some IV fluids. Labs are unremarkable. She has an appointment at Dr. MOORE's office later this morning. She was encouraged to keep that appointment. Departure Impression Primary Impression: Postoperative vaginal bleeding Additional Impressions: Lightheadedness Hypokalemia Disposition: 01 HOME, SELF-CARE Condition: Improved Departure-Patient Inst. Decision time for Depature: 23:30 Referrals: SUZIE ARIZMENDI MD (PCP/Family) Primary Care Physician Patient Instructions: Hypokalemia (DC) Add. Discharge Instructions: Continue to drink plenty of clear liquids and eat a well-balanced diet. Keep your appointment tomorrow with Dr. MOORE's office. Return to the ER or call if you have worsening symptoms. In particular, return to the ER if you have increasing bleeding, uncontrolled pain, fevers over 100 degrees, or other significant concerning problems. All discharge instructions reviewed with patient and/or family. Voiced understanding. Copy Copies To 1: SAMANTHA MOORE JOSHUA T MD Apr 02, 2021 23:31
[2021-04-02 23:51] VITALS: BP 138/75
== END 2021-04-02 23:56 | disposition home or self-care (01) ==
LOC: EDUNIT# 21:42 → ER 21:44
DX: N99.89 Other postprocedural complications and disorders of genitourinary system (principal); R42 Dizziness and giddiness; E87.6 Hypokalemia; I10 Essential (primary) hypertension; K21.9 Gastro-esophageal reflux disease without esophagitis; F41.9 Anxiety disorder, unspecified; G89.29 Other chronic pain; M54.9 Dorsalgia, unspecified; Z79.899 Other long term (current) drug therapy; Z79.891 Long term (current) use of opiate analgesic
CPT/HCPCS: 36415; 80048; 81000; 85025; 86141

== ENCOUNTER → 2021-04-25 | Outpatient (CLI) | payer MEDICAID ==
--- NOTE | 2021-04-25 13:11 | Diagnostic Imaging Report ---
INDICATION: Prior history of left breast abscess in December 2018. The patient has a new lump and tenderness just underneath the left nipple. CORRELATION is made with left breast ultrasound dating back to 02/11/2021. There is a new area of somewhat ill-defined hypoechogenicity just inferior to the left nipple measuring 1.9 x 0.8 x 0.5 cm. This does show robust vascularity. No discrete fluid collection is seen but this most likely represents inflammatory tissue. No other abnormality is identified. IMPRESSION: Ill-defined hypervascular hypoechoic tissue just below the left nipple at the area of tenderness and lump. This may represent phlegmonous tissue. No discrete fluid collection or abscess is seen at this time. Close interval follow-up is recommended to confirm clearing. BI-RADS Category 3. ACR BI-RADS Category 3: Probably benign findings. Result letter will be mailed to the patient. Note: At least 10% of breast cancer is not imaged by mammography. Dictated by: Dictated on workstation # [id number]
== END ==
LOC: RAD 11:01
PROVIDERS: ATTEND Surgery
DX: N63.20 Unspecified lump in the left breast, unspecified quadrant (principal)
CPT/HCPCS: 76642

== ENCOUNTER → 2021-09-17 | Outpatient (CLI) | payer MEDICAID ==
[~2021-09-17] MED LIST changes: -DCS100C PO; +DOCU-239 PO
--- NOTE | 2021-09-17 11:24 | Diagnostic Imaging Report ---
INDICATION: Low back pain and right hip pain. TIME OF EXAM: 10:59 AM. FINDINGS: Three views of the lumbar spine were obtained. The curvature and alignment are normal. The vertebral body heights and disc spaces are fairly well-maintained. There is no fracture or subluxation. Surgical clips in the right upper quadrant are noted. IMPRESSION: No acute bony abnormality is detected. Dictated by: Dictated on workstation # [id number]
--- NOTE | 2021-09-17 11:24 | Diagnostic Imaging Report ---
INDICATION: Right hip pain. TIME OF EXAM: 10:59 AM. FINDINGS: Two views of the right hip were obtained. The femoroacetabular alignment is normal. The joint space is well-maintained. The femoral head and neck are intact. The right-sided rami are intact. No fractures are seen. IMPRESSION: No acute bony abnormality is detected. Dictated by: Dictated on workstation # [id number]
== END ==
LOC: RAD 10:25
PROVIDERS: ATTEND Family Medicine
DX: M25.551 Pain in right hip (principal); M54.50 Low back pain, unspecified
CPT/HCPCS: 72100; 73502

== ENCOUNTER → 2022-03-20 | Outpatient (CLI) | payer MEDICAID ==
--- NOTE | 2022-03-20 08:58 | Diagnostic Imaging Report ---
INDICATION: Cough PA and lateral chest obtained at 8:46 a.m. Heart and mediastinal silhouette are normal in appearance. The lungs are clear. There is no pneumothorax or pleural fluid. IMPRESSION: Negative chest. Dictated by: Dictated on workstation # [id number]
== END ==
LOC: RAD 08:25
PROVIDERS: ATTEND Family Medicine
DX: R05.9 Cough, unspecified (principal); R07.89 Other chest pain
CPT/HCPCS: 71046

== ENCOUNTER → 2022-05-22 | Outpatient (CLI) | payer OTHER, MEDICAID | LOC: LAB 10:40 | PROVIDERS: ATTEND Surgery | DX: R19.7 Diarrhea, unspecified (principal) | CPT/HCPCS: 82274; 87015; 87045; 87046; 87324; 87328; 87329; 87449; 87899 ==

== ENCOUNTER 2022-06-03 06:10 | Outpatient (CLI) | payer OTHER, MEDICAID ==
[~2022-06-03] VITALS: Ht 175.3 cm; Wt 89.4 kg
== END 2022-06-03 14:21 | disposition home or self-care (01) ==
LOC: PREOP 06:10
PROVIDERS: ATTEND Surgery
DX: Z01.818 Encounter for other preprocedural examination (principal)

== ENCOUNTER 2022-06-16 11:58 | Day surgery (SDC) | payer OTHER, MEDICAID ==
[~2022-06-16] VITALS: Ht 175.2 cm; Wt 89.4 kg
[~2022-06-16 11:58] MED LIST changes: +ALBU8.5H6 IH; -RT-ALBUINH IH
[2022-06-16] MEDS ORDERED: LACTATED RINGERS 1,000 ML IV STA (12:06)
[2022-06-16 12:15] VITALS: BP 124/84
--- NOTE | 2022-06-16 13:06 | Progress Note-Pre Operative ---
Pre-Operative Progress Note Date H&P Reviewed: May 18, 2022 Time H&P Reviewed: 13:06 History & Physical: H&P Reviewed Pre-Operative Diagnosis: Chronic diarrhea TERRY RODRIGUEZ DO Jun 16, 2022 13:06
[2022-06-16] MEDS ORDERED: PROPOFOL INJECTION 50 ML IV ONE (13:53)
--- NOTE | 2022-06-16 14:22 | Anesthesia-General Post-Op ---
MAC Patient Condition Mental Status/LOC: Same as Preop Cardiovascular: Satisfactory Nausea/Vomiting: Absent Respiratory: Satisfactory Pain: Controlled Complications: Absent Post Op Complications Complications None Follow Up Care/Instructions Patient Instructions None needed. Anesthesiology Discharge Order Discharge Order Patient is doing well, no complaints, stable vital signs, no apparent adverse anesthesia problems. No complications reported per nursing. ANUSHKA MUNSON CRNA Jun 16, 2022 14:22
--- NOTE | 2022-06-16 14:22 | Progress Note-Post Operative ---
Post-Operative Progess Note Surgeon (s)/Production Proofreader (s) Surgeon TERRY RODRIGUEZ DO Production Proofreader: NA Pre-Operative Diagnosis Chronic diarrhea Post-Operative Diagnosis Normal Colon Procedure & Operative Findings Date of Procedure 06/16/22 Procedure Performed/Findings Colonoscopy with random cold biopsies Anesthesia Type per dental ceramist Estimated Blood Loss Estimated blood loss (mL): None Specimens/Packing Specimens Removed Random colon cold biopsies x8 TERRY RODRIGUEZ DO Jun 16, 2022 14:22
--- NOTE | 2022-06-16 14:24 | Discharge Inst-Simple/Standard ---
Discharge Inst-Standard Reconcile Patient Problems Problems Reviewed?: Yes Patient Instructions/Follow Up Plan of Care/Instructions/FU: f/u in two weeks with Dr. Becker Activity as Tolerated: Yes Discharge Diet: Regular Diet TERRY BECKER DO Jun 16, 2022 14:24
[2022-06-16 14:25] VITALS: BP 116/57
[2022-06-16 14:30] VITALS: BP 119/68
[2022-06-16 14:35] VITALS: BP 123/85
[2022-06-16 14:40] VITALS: BP 123/85
[2022-06-16 14:50] VITALS: BP 123/85
--- NOTE | 2022-06-16 23:02 | OPERATIVE REPORT ---
DATE OF SERVICE: 06/16/2022 PREOPERATIVE DIAGNOSIS: Diarrhea. POSTOPERATIVE DIAGNOSIS: Normal colon. PROCEDURE: Colonoscopy with random cold biopsies. SURGEON: Terry Becker DO ANESTHESIA: Per VESSEL SLAGMAN. ESTIMATED BLOOD LOSS: None. COMPLICATIONS: None. INDICATIONS: The patient is a 32-year-old female, who was having change in bowel habits, where she was having chronic diarrhea. She understands risks and benefits of procedure and wishes to proceed. Consent was signed in the chart. DESCRIPTION OF PROCEDURE: The patient was taken to the endoscopy suite, placed in left lateral recumbent position. Timeout was performed. Digital rectal exam was performed. No palpable polyps, masses or ulcerations. Scope was inserted in the rectum and advanced all the way to cecum with minimal difficulty. No polyps, masses or ulcerations. Prep was adequate. No polyps, masses or ulcerations within the cecum, ascending, transverse, descending and sigmoid colon. Scope was being retracted, multiple random cold biopsies were obtained. Once in the rectum, scope was inserted and retracted multiple times, noting no other pathology. Scope was slowly retracted until completely removed. The patient tolerated procedure well without any complications, taken to recovery room in stable condition. RECOMMENDATIONS: The patient will need repeat colonoscopy per screening guidelines, which would be age 44. If she has any issues before that be seen at that time. The patient will follow up in the office in couple of weeks to discuss pathology results. Job ID: [id number] DocumentID: [id number] Dictated Date: 06/16/2022 14:27:21 Meter Repairer Date: 06/16/2022 23:01:13 Dictated By: TERRY BECKER DO
== END 2022-06-16 14:50 | disposition home or self-care (01) ==
LOC: ENDO 11:58
PROVIDERS: ATTEND Surgery
DX: K52.9 Noninfective gastroenteritis and colitis, unspecified (principal); E66.9 Obesity, unspecified; Z68.29 Body mass index [BMI] 29.0-29.9, adult; F17.210 Nicotine dependence, cigarettes, uncomplicated
CPT/HCPCS: 88305